=== PATIENT | female | born 1950 | race Caucasian/White ===

== ENCOUNTER 2020-08-16 13:03 | Outpatient (CLI) | payer MEDICARE, BC, SELFPAY ==
--- NOTE | 2020-08-16 13:13 | CT_ITS ---
WS: [id number] HISTORY: Follow-up carcinoma of the lung. EXAMINATION: CT scan of the chest, abdomen, and pelvis with intravenous contrast. Multiple axial imag es were obtained with intravenous contrast. Coronal and sagittal reconstructions were obtained. 75 mL of Omnipaque 300 was used for the examination. Comparison examination: 08/20/2019. CHEST: The examination is unchanged compared to the previous study of 08/20/2019. There is been previous left upper lobectomy. Multiple small pulmonary nodules unchanged. No recurrent mass, no adenopathy, no infiltrates. No pleural fluid ABDOMEN: The examination is unchanged compared to the previous study of 08/20/2019. There is mild fatty infilt ration of the liver with small hypodensities unchanged. Pancreas is mildly atrophic. Spleen is unrema rkable. Presumed small left renal cysts. Small right renal calculus. No change. Small umbilical hernia containing fat. No mass or adenopathy. No free fluid or focal fluid collection. PELVIS: Examination is unchanged compared to the previous study of 08/20/2019. Urinary bladder is unremarkable. Atrophic uterus. No mass, adenopathy, or fluid. CT/CT chest abd pel w con* IMPRESSION: The chest abdomen and pelvis are unchanged compared to the previous study of . No findings of recurrent or metastatic neoplasm.
[2020-08-16 14:07] LABS: Basophils % 0.5 %; Eosinophils # 0.1 10^3/uL (0.0-0.8); Eosinophils % 1.1 %; Hematocrit 43.9 % (37.0-47.0); Hemoglobin 14.4 g/dL (11.5-15.3); Lymphocytes # 1.7 10^3/uL (0.8-4.8); Lymphocytes % 26.9 %; Mean Corpuscular HGB Conc 32.8 g/dL (30.0-36.0); Mean Corpuscular Hemoglobin 30.6 pg (28.0-34.0); Mean Corpuscular Volume 93.4 fL (81-99); Mean Platelet Volume 8.9 fL (7.4-10.4); Monocytes # 0.5 10^3/uL (0.2-0.9); Monocytes % 7.6 %; Neutrophils # 4.04 10^3/uL (1.8-7.7); Neutrophils % 63.6 %; Nucleated Red Blood Cells % 0 %; Platelet Count 253 10^3/cmm (130-400); Red Cell Distribution Width 13.2 % (12.1-15.1); White Blood Count 6.4 10^3/uL (4.0-10.0)
[2020-08-16 14:31] LABS: Alanine Aminotransferase 34 U/L (0-33); Albumin Level 4.3 g/dL (3.5-5.2); Alkaline Phosphatase 80 IU/L (35-105); Anion Gap 13.1 (5-19); Aspartate Amino Transferase 25 U/L (0-32); Blood Urea Nitrogen 13 mg/dL (8-23); Calcium 9.4 mg/dL (8.5-10.5); Carbon Dioxide 31 mmol/L (22-29); Chloride 103 mmol/L (98-107); Globulin 3.2 g/dL (1.3-4.6); Glucose 88 mg/dL (65-115); Osmolality Calculated 296 mOsm/kg (285-295); Potassium 4.1 mmol/L (3.5-5.1); Sodium 143 mmol/L (136-145); Total Bilirubin 0.4 mg/dL (0.15-1.2); Total Protein 7.5 g/dL (6.6-8.7)
[2020-08-16] MEDS: iohexol 300 mg/mL 100 mL Btl IV (15:13)
[2020-08-20 16:09] LABS: Chromogranin A 54 ng/mL (25-140)
[2020-08-21 19:23] LABS: 24 Hour Urine Volume 1925 mL; 5-HIAA, 24 Hour Urine 4.6 mg/24 h (<=6.0)
[2020-08-21 20:23] LABS: Serotonin Whole Blood 51 ng/mL (56-244)
== END 2020-08-16 13:04 | disposition home or self-care (01) ==
LOC: RAD 13:08 → ONCMED 13:14
PROVIDERS: PCP Family Medicine; Visit Provider Internal Medicine Medical Oncology
DX: C7A.090 Malignant carcinoid tumor of the bronchus and lung (principal)
CPT/HCPCS: 36415; 71260; 74177; 80053; 83497; 84260; 85025; 86316; Q9967

== ENCOUNTER 2020-08-23 05:56 | Outpatient (CLI) | payer MEDICARE, BC, SELFPAY ==
--- NOTE | 2020-08-27 13:58 | ONC FU_ITS ---
Dr. Rollins Patient Follow-Up Note Patient: Sammi Harrell Unit #: [id number]: [id number] Dicatated By: Mark Rollins M.D.Date of Visit:Aug 23, 2020 Onc Med Follow-up/Prog Note Chief Complaint: Malignant carcinoid. History of Present Illness: This is a 69 year-old woman malignant carcinoid involving the left lung, stage IIA (T1b, N1, M0). She had presented with new onset of cough. A chest CT on 09/30/2014 showed a concerning left upper lobe lesion. Further evaluation with PET/CT on 10/09/2015 revealed a 2.3 cm left upper lobe mass in the evelio-hilar region with SUV of 4.8, without regional lymphadenopathy. Bronchoscopy on 10/15/2015 was non-diagnostic. On 11/03/15 she underwent a formal left upper lobectomy by Dr. Short. Her surgical pathology revealed a 2.5 cm centimeter atypical carcinoid with spindle cell type. Ki-67 index was with low proliferative rate. One hilar lymph node was involved by direct extension from the main tumor mass. An additional 9 lymph nodes were reported to be benign. Thus, her disease was pathologic stage IIA (T1b, N1, M0). She was seen by Dr. López on 11/24/2015. Expectant management was recommended. Her other medical illnesses include irritable bowel syndrome, nephrolithiasis, fibromyalgia, and chronic anxiety. She has a history of colonic polyps. She is a nonsmoker. INTERIM HISTORY: Surveillance chest CT scan performed on 05/26/2016 showed a new left anterolateral lower lobe 6-7 mm non calcified nodule, felt to be non specific. There was stable appearance of a right lower lobe subpleural nodule. There was new left and similar right lower lung zone scarring or subsegmental atelectasis. A repeat CT scan performed on 08/25/2016 showed no recurrent mass or adenopathy. There were multiple bilateral subcentimeter pulmonary/ subpleural nodules which had been present since 09/30/2015 and changed minimally in size, probably due to volume averaging. These nodules were all negative on PET/CT from 10/09/2015. With those findings she continued on observation/expectant management. Her subsequent surveillance CT scans in 2016, 2017, and 2018 showed no evidence of disease progression. Her surveillance CT scans of the chest, abdomen, and pelvis on 08/16/2020 showed no findings of recurrent or metastatic neoplasm. There were no changes compared to the August 2019 study. However, previous screening mammogram was abnormal, and her diagnostic mammogram on 08/13/2020 showed an irregular focal asymmetry in the upper inner quadrant of the right breast measuring 1.3 cm. Ultrasound showed an irregular hypoechoic mass with indistinct margins at the 1:00 axis of the right breast measuring 0.5 x 0.4 x 0.4 cm. The findings were BI-RADS 4, suspicious. She underwent ultrasound directed biopsy last week, and those results are pending. She is seen for a scheduled visit. She has been feeling okay. She does complain that she is tired, but that she attributes to her weight. She still has normal activity. ECOG score is 0. She has good appetite. She does not have fever, night sweats, or hot flashes/flushing episodes. She has some shortness of breath with more strenuous activity. She has a little bit of cough, attributable to acid reflux. She occasionally has a little chest pain. She is taking Protonix for acid reflux. She has loose stools, which is chronic. She has no complaints. She has been having pain in her left hip. She otherwise has just normal aches and pains. She does not complain of headache or dizziness, and she has no focal neurologic symptoms. Medications: Albuterol Sulfate 1 ((2.5 mg/3ml) 0.083%) Nebulization solution Inhalation four times a day PRN, ALPRAZolam 0.25 mg (of 0.5 mg) Tablet Oral PRN, Hydrocodone-Acetaminophen 1 Tablet (of 5-325 mg) Oral q 6 hours PRN, Imodium A-D Capsule Oral PRN, Lomotil Tablet Oral PRN, Pantoprazole Sodium 1 (40 mg) Tablet, enteric coated Oral daily, TraZODone HCl 100 mg (of 50 mg) Tablet Oral daily Allergies: clindamycin and macrobid. Review of Systems: Constitutional - She has been feeling okay. She does complain of being tired, but that she attributes to weight. She has normal activity. Appetite is good. She has no fever, night sweats, or hot flashes/flushing spells. ECOG score is 0, ENMT - She has some sinus congestion/drainage. No mouth sores. No sore throat or difficulty swallowing, Hematologic/Lymphatic - No abnormal bruising or bleeding, Breasts - She has been undergoing evaluation for abnormal mammogram she has had a recent biopsy of the right breast, Respiratory - She has shortness of breath with more strenuous activity. She has a little cough, suspected to be due to acid reflux. No pleuritic pain or hemoptysis, Cardiovascular - No angina pain. No palpitations, Gastrointestinal - No nausea or vomiting. She does take Protonix for acid reflux. She has loose stools, but that is chronic. No blood in the stool or black stools, Genitourinary (F) - No dysuria or hematuria. No urinary frequency. No urgency or incontinence, Musculoskeletal - She has been having pain in her left hip. She otherwise just has normal aches and pains, Integumentary - No skin rash, Neurologic - No headache or dizziness. No numbness or tingling. No other focal neurologic symptoms, Psychiatric - No anxiety or depression. She has difficulty sleeping. Vital Signs: Performed on Aug 23, 2020 10:52 Height - 69.00 in Weight - 291.8 lbs (LOW) BSA - 2.43 sq.m BMI - 43.09 (HIGH) Temperature - 98.8 F Pulse - 64 /min Respiration - 18 /min BP - 149/72 mm(hg) (HIGH) O2 Sat - 97 % Pain - 0 Physical Examination: Constitutional - She looks good generally, Eyes - Sclerae nonicteric. Conjunctivae clear, ENMT - No lesions noted in the oral cavity, Hematologic/Lymphatic - No cervical, clavicular, or axillary adenopathy, Respiratory - Lungs are clear with some decrease in air movement bilaterally, Cardiovascular - Heart rhythm is regular. There is no murmur, gallop, or rub noted, Abdomen - Distended. Liver and spleen are not enlarged. There is no abdominal mass or ascites noted and there is no inguinal adenopathy, Extremities - There are venous stasis changes, worse on the right, and there is mild edema, Neurologic - No focal neurologic deficits noted. Lab/Imaging: Test performed on Aug 16, 2020 13:58 Serotonin, Serum 51 ng/mL Sodium 143 mmol/L Potassium 4.1 mmol/L Chloride 103 mmol/L CO2 31 mmol/L Anion Gap 13.1 BUN 13 mg/dL Creatinine 0.8 mg/dL Cr Clearance (Est) 134.8700 mL/min Glucose 88 mg/dL Osmolality - Calculated 296 mOsm/kg Calcium 9.4 mg/dL Protein, Total 7.5 g/dL Albumin 4.3 g/dL Globulin 3.2 g/dL Bilirubin, Total 0.4 mg/dL ALT (SGPT) 34 U/L AST (SGOT) 25 U/L Alkaline Phosphatase 80 IU/L WBC 6.4 10 3/uL RBC 4.70 10 6/uL HGB 14.4 g/dL HCT 43.9 % MCV 93.4 fL MCH 30.6 pg MCHC 32.8 g/dL RDW 13.2 % Platelet Count 253 10 3/cmm MPV 8.9 fL Neutrophils 4.04 10 3/uL Lymphocytes 1.7 10 3/uL Monocytes 0.5 10 3/uL Eosinophils 0.1 10 3/uL Basophils 0.0 10 3/uL Neutrophil % 63.6 % Lymphocyte % 26.9 % Monocyte % 7.6 % Eosinophil % 1.1 % Basophils % 0.5 % NRBC % 0 % Chromogranin A 54 ng/mL Test performed on Aug 16, 2020 07:00 U Total Volume 1925 mL U 5-HIAA, 24hr 4.6 mg/24 h Impression: 1. 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 2. She underwent left upper lobectomy on 11/03/2015. She is being followed on observation/expectant management. Her other medical illnesses include: 3. Irritable bowel syndrome. 4. Nephrolithiasis. 5. Fibromyalgia. 6. Chronic anxiety. She had multiple subcentimeter pulmonary nodules by CT scan, but the appearance was nonspecific. Thus far during followup the nodules have remained stable surveillance CT scans, and overall there has been no evidence of recurrence/progression of her malignant carcinoid. Her overall clinical status also has remained stable, but she currently is undergoing evaluation for abnormal mammogram of the right breast. Plan: for the malignant carcinoid. She will have further evaluation for the abnormal mammogram as indicated. I will see her again in 1 year, or sooner as needed. Signed By: aMrk Rollins M.D. <<Signature on File>>
== END 2020-08-23 05:57 | disposition home or self-care (01) ==
LOC: ONCMED 05:59
PROVIDERS: PCP Family Medicine; Visit Provider Internal Medicine Medical Oncology
DX: Z08 Encounter for follow-up examination after completed treatment for malignant neoplasm (principal); Z85.110 Personal history of malignant carcinoid tumor of bronchus and lung; Z90.2 Acquired absence of lung [part of]; K58.9 Irritable bowel syndrome, unspecified; N20.0 Calculus of kidney; M79.7 Fibromyalgia; F41.9 Anxiety disorder, unspecified
CPT/HCPCS: G0463

== ENCOUNTER 2020-10-01 09:55 | Outpatient (CLI) | payer MEDICARE, BC, SELFPAY ==
--- NOTE | 2020-10-05 08:08 | ONC CON_ITS ---
Dr. Rollins New Patient Note Patient: Sammi Harrell Unit #: [id number]: [id number] Dicatated By: Mark Rollins M.D.Date of Visit: Oct 01, 2020 Onc MED New Patient/Consult Referring Physician: Dr. NITESH SHORT M.D. Chief Complaint: Malignant carcinoid. History of Present Illness: This is a 70 year-old woman malignant carcinoid involving the left lung, stage IIA (T1b, N1, M0). She had presented with new onset of cough. A chest CT on 09/30/2014 showed a concerning left upper lobe lesion. Further evaluation with PET/CT on 10/09/2015 revealed a 2.3 cm left upper lobe mass in the evelio-hilar region with SUV of 4.8, without regional lymphadenopathy. Bronchoscopy on 10/15/2015 was non-diagnostic. On 11/03/15 she underwent a formal left upper lobectomy by Dr. Short. Her surgical pathology revealed a 2.5 cm centimeter atypical carcinoid with spindle cell type. Ki-67 index was with low proliferative rate. One hilar lymph node was involved by direct extension from the main tumor mass. An additional 9 lymph nodes were reported to be benign. Thus, her disease was pathologic stage IIA (T1b, N1, M0). She was seen by Dr. López on 11/24/2015. Expectant management was recommended. Surveillance chest CT scan performed on 05/26/2016 showed a new left anterolateral lower lobe 6-7 mm non calcified nodule, felt to be non specific. There was stable appearance of a right lower lobe subpleural nodule. There was new left and similar right lower lung zone scarring or subsegmental atelectasis. A repeat CT scan performed on 08/25/2016 showed no recurrent mass or adenopathy. There were multiple bilateral subcentimeter pulmonary/ subpleural nodules which had been present since 09/30/2015 and changed minimally in size, probably due to volume averaging. These nodules were all negative on PET/CT from 10/09/2015. With those findings she continued on observation/expectant management. Her subsequent surveillance CT scans in 2017, 2018, and 2018 showed no evidence of disease progression. Her surveillance CT scans of the chest, abdomen, and pelvis on 08/16/2020 showed no findings of recurrent or metastatic neoplasm. There were no changes compared to the August 2019 study. Her other medical illnesses include irritable bowel syndrome, nephrolithiasis, fibromyalgia, and chronic anxiety. She has a history of colonic polyps. She is a nonsmoker. INTERIM HISTORY: Her diagnostic mammogram on 08/13/2020 showed an irregular focal asymmetry in the upper inner quadrant of the right breast measuring 1.3 cm. Ultrasound showed an irregular hypoechoic mass with indistinct margins at the 1:00 axis of the right breast measuring 0.5 x 0.4 x 0.4 cm. The findings were BI-RADS 4, suspicious. She underwent ultrasound directed biopsy on 08/13/2020. Pathology showed grade 2 invasive ductal carcinoma. There was associated high-grade ductal carcinoma in situ. The breast prognostic profile showed ER positive at 99% and AL positive at 39%. Tumor was negative for overexpression of HER-2/emelina, 1+ by IHC. On 09/09/2020 she underwent right breast lumpectomy with axillary sentinel lymph node biopsy. Pathology on the lumpectomy showed grade 3 invasive ductal carcinoma measuring 1.6 cm in greatest dimension. The margins were free of tumor, with the closest being the deep margin at 2 mm. There was no involvement in 1 sentinel lymph node. Her Oncotype DX showed recurrence score of 34, corresponding to 22% risk of distant recurrence at 9 years with adjuvant hormonal therapy. The predicted benefit with addition of adjuvant chemotherapy was > 15%. A repeat Oncotype DX was requested, and that result is pending. She is seen today to review the pathology results and to discuss further management of the breast cancer. Past Medical History: Her medical history consists of anxiety, fibromyalgia, history of colonic polyps, irritable bowel syndrome, and nephrolithiasis. Past Surgical History: Her other surgical/procedural history consists of bilateral cataract excisions in 2017, left upper lobectomy in 2015, knee replacement in 2013, knee replacement in 2012, and cholecystectomy in 1991. Medications: Albuterol Sulfate 1 ((2.5 mg/3ml) 0.083%) Nebulization solution Inhalation four times a day PRN, ALPRAZolam 0.25 mg (of 0.5 mg) Tablet Oral PRN, Hydrocodone-Acetaminophen 1 Tablet (of 5-325 mg) Oral q 6 hours PRN, Imodium A-D Capsule Oral PRN, Lomotil Tablet Oral PRN, Pantoprazole Sodium 1 (40 mg) Tablet, enteric coated Oral daily, TraZODone HCl 100 mg (of 50 mg) Tablet Oral daily Allergies: clindamycin and macrobid. Social History: Ms. Harrell is . She is a non-smoker. She does not drink alcohol. Family History: Her father had colon cancer and she thinks her paternal grandfather may also have had colon cancer. Two cousins on her father side had colon cancer and an aunt on her father's side had breast cancer. A brother of lung cancer at age 49. Vital Signs: Performed on Oct 01, 2020 10:20: 3, 43.73 (HIGH), 2.44 sq.m, 69.00 in, 96 %, 61 /min, 16 /min, 133/62 mm(hg), 98.4 F, 296.1 lbs (HIGH), and Performed on Nov 24, 2015 11:12: 0. Problem List: 1. Grade 3 infiltrating ductal carcinoma of the right breast, stage IA (pT1c, pN0, M0), ER/AL positive and HER-2 negative. Her tumor was high risk by Oncotype DX. 2. 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 She underwent left upper lobectomy on 11/03/2015. 3. Irritable bowel syndrome. 4. Nephrolithiasis. 5. Fibromyalgia. 6. Chronic anxiety. Problems Addressed with this Encounter and Plan: 1. Grade 3 infiltrating ductal carcinoma of the right breast, stage IA (pT1c, pN0, M0), ER/AL positive and HER-2 negative. Her tumor was high risk by Oncotype DX with recurrence score 34 corresponding to a 22% 9-year risk of distant recurrence with hormonal therapy alone. The predicted benefit with addition of adjuvant chemotherapy was > 15%. She underwent ultrasound directed biopsy of the right breast on 08/13/2020 followed by right breast lumpectomy with axillary sentinel lymph node biopsy on 09/09/2020. The pathology results were reviewed with the patient, including the results of the Oncotype DX. We discussed the clinical implications. She has a stage Ia infiltrating ductal carcinoma of the right breast which is ER/AL positive and HER-2/emelina negative. The Oncotype DX, though, came back at high risk, and I reviewed the results of that study with her in detail. The estimated 9-year risk of recurrence with adjuvant hormonal therapy alone is 22% but with a predicted benefit of > 15% with addition of adjuvant chemotherapy. As such, she is recommended to undergo adjuvant chemotherapy with 4 cycles of cyclophosphamide/docetaxel. I reviewed potential side effects with the chemotherapy which may include nausea/vomiting, mucositis, diarrhea, alopecia, fatigue, low blood counts, and peripheral neuropathy, among others. She is aware that she will need to undergo placement of Port-A-Cath for venous access for the chemotherapy. At this point she indicates that she is agreeable to taking the chemotherapy as recommended, though a repeat Oncotype DX has been requested and we will want to verify those results before arranging the Port-A-Cath placement. In the meantime, she also is aware that following completion of adjuvant chemotherapy she will need to undergo radiation to the right breast and she will then begin adjuvant hormonal therapy with an aromatase inhibitor. I also reviewed those expected side effects, which include risk of osteoporosis and a potential for musculoskeletal pain. The recommended duration of treatment is 5 years. 2. 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 She underwent left upper lobectomy on 11/03/2015. She has been followed on observation/expectant management. Thus far there has been no evidence of recurrence. 3. She has a history of colonic polyps and a significant family history for both colon cancer and breast cancer. I will have to determine if she is eligible for genetic testing for hereditary cancer. Total time spent on the day of encounter was 45 minutes, including review of records, discussion with patient, and documentation. Signed By: Mark Rollins M.D. <<Signature on File>>
== END 2020-10-01 09:56 | disposition home or self-care (01) ==
PROVIDERS: PCP Family Medicine; Visit Provider Internal Medicine Medical Oncology
DX: C50.211 Malignant neoplasm of upper-inner quadrant of right female breast (principal); Z17.0 Estrogen receptor positive status [ER+]; Z85.110 Personal history of malignant carcinoid tumor of bronchus and lung; Z90.2 Acquired absence of lung [part of]; Z80.3 Family history of malignant neoplasm of breast; Z80.0 Family history of malignant neoplasm of digestive organs; K58.9 Irritable bowel syndrome, unspecified; M79.7 Fibromyalgia; F41.9 Anxiety disorder, unspecified; N20.0 Calculus of kidney
CPT/HCPCS: 99215

== ENCOUNTER → 2020-10-13 15:57 | Outpatient (BNVA) | payer MEDICARE, BC, SELFPAY | PROVIDERS: PCP Family Medicine; Visit Provider Surgery | DX: C34.10 Malignant neoplasm of upper lobe, unspecified bronchus or lung (principal) | CPT/HCPCS: 87635 ==

== ENCOUNTER 2020-10-18 08:17 | Day surgery (SDC) | payer MEDICARE, BC, SELFPAY ==
[2020-10-15 13:55] VITALS: BMI 42.5
--- NOTE | 2020-10-18 | SCC_ITS ---
Procedure Done: Attempted placement of PowerPort under ultrasound and fluoroscopic guidance were interpretation was done by me through the whole entire procedure 24.8 seconds of fluoroscopic guidance, for a cumulative dose of 4.94 mGy, was provided to Dr. Tong by the radiology department. C-arm images of the chest were saved for the patient's permanent record. [facility]
--- NOTE | 2020-10-18 08:30 | SC_ITS ---
WS: [id number] INTRAOPERATIVE TECHNIQUE: 2 Spot fluoroscopic images for intraoperative purposes. FLUOROSCOPY TIME: 24.8 seconds CLINICAL INFORMATION: Powerport Placement COMPARISON: None. FINDINGS: Tubing projected over the right hemithorax. No visualized pneumothorax. SC/C-arm FL for CVA [id number] IMPRESSION: Images obtained for intraoperative purposes.
[2020-10-18 08:41] VITALS: BP 163/94; PULSE 83; RESP 18; TEMP 36.3; O2SAT 93
[2020-10-18] MEDS: sodium chloride 0.9% 1,000 ML 30 ML IV (08:57)
--- NOTE | 2020-10-18 09:40 | ANES.PREANE2 ---
Pre-Anesthetic Assessment Pre-Anesthetic Assessment: Height/Weight: Height 1.75 m Weight 130.635 kg Temp Pulse Resp BP Pulse Ox 97.3 F L 83 18 163/94 93 10/18/20 08:41 10/18/20 08:41 10/18/20 08:41 10/18/20 08:41 10/18/20 08:41 Preop Diagnosis: Breast cancer Proposed Procedure: Operation Date: 10/18/20 10:00 Proposed Procedures p Portacath Placement 37480(Not Applicable) - Stephan Tong MD Was Beta Neil taken within 24 hours: N/A Last intake: Intake Last Liquid Date 10/17/20 Last Liquid Time 21:00 Last Solid Date 10/17/20 Last Solid Time 21:00 Social: Social History: No alcohol and No tobacco Exam: Pre-Anes Outpt Exam: alert, oriented x 3, clear to auscultation bilaterally and regular rate & rhythm Airway: Submandibular: WNL Cervical ROM: WNL MP: 2 Dentition: Full Pulmonary: Pulmonary: Asthma GI: GI: GERD Metabolic: Metabolic: Morbid obesity Neuropsych: Neuropsych: Anxiety Anesthetic Plan: ASA status: 3 Anesthesia: MAC Risk of > 500 ml blood loss (7ml/kg in children): No Meds/Allergies Current Medications: Current Medications Generic Name Dose Route Start Last Admin Trade Name Freq PRN Reason Stop Dose Admin Sodium Chloride 1,000 mls @ 30 ml s/hr 10/18/20 08:30 10/18/20 08:57 Sodium Chloride 0.9% IV 10/19/20 08:29 30 mls/hr .Q24H DENA Administration PFSH Anesthesia PFSH: Medical History Cancer of upper lobe of left lung Depression Fibromyalgia Hammertoe, bilateral Heloma molle Hypertension IBS (irritable bowel syndrome) Tailor's bunion of both feet Venous insufficiency Surgical History History of cholecystectomy History of knee replacement History of tonsillectomy and adenoidectomy Social History Smoking and tobacco status: never smoked Alcohol intake: never Data Anesthesia Cardiac Studies: No Data to Display
--- NOTE | 2020-10-18 10:06 | W.PM.OPSUD ---
Surgery/Procedure H&P Update DATE OF PROCEDURE: October 18, 2020 DATE H&P PERFORMED: 10/13/20 H&P UPDATE INFORMATION: I have reviewed H&P completed within last 30 days, I have examined patient prior to procedure and No changes to prior documentation PREOP DIAGNOSIS: Breast cancer PRIMARY INDICATION FOR PROCEDURE: The same PLANNED PROCEDURE: Operation Date: 10/18/20 10:00 Proposed Procedures p Portacath Placement 18969(Not Applicable) - Stephan Tong MD
[2020-10-18] MEDS: lidocaine 2% INJ 20 mL INJECTION (11:00)
--- NOTE | 2020-10-18 11:46 | XRR_ITS ---
PROCEDURE INFORMATION: Exam: XR Chest, 1 View Exam date and time: 10/18/2020 12:04 PM Age: 70 years old Clinical indication: Device placement; Other: Attempted placement of port-a-cath; Additional info: Status post attempted placement of port-a-cath TECHNIQUE: Imaging protocol: XR of the chest Views: 1 view. COMPARISON: CT chest abd pel w con* 08/16/2020 3:01 PM FINDINGS: Lungs: No pneumonia or pulmonary edema. Thickening of the minor fissure versus perifissural atelectasis. Pleural spaces: Left pleural thickening versus extrapleural fat deposition. No pneumothorax. No large pleural effusion. The left costophrenic sulcus is not on the images. Heart/Mediastinum: The heart is not felt to be enlarged when allowing for epicardial fat pads. Vasculature: The thoracic aorta is tortuous. Bones/joints: There are multilevel bridging osteophytes in the spine. Soft tissues: Surgical clips project over the left hemithorax, and in the right breast/chest wall. XR/XR chest 1V portable [id number] IMPRESSION: No pneumothorax after attempted port placement.
[2020-10-18 11:53] VITALS: BP 101/60; PULSE 67; RESP 18; TEMP 36.1; O2SAT 94
--- NOTE | 2020-10-18 11:54 | PM.OP ---
Operative Report Date of procedure: October 18, 2020 Pre-op Diagnosis: Breast cancer Post-op diagnosis: same Post-op Findings: Unsuccessful access to the left subclavian and right subclavian veins Unsuccessful passage of guidewires via internal jugular veins Procedure Done: Attempted placement of PowerPort under ultrasound and fluoroscopic guidance were interpretation was done by me through the whole entire procedure Implants: None Surgeon: Stephan Tong Neuropsychology Service Director: Surgical maira Gutierrez Circulating nurses Juana and Calli Anesthesia: MAC (cRNAs Telma and Consuelo) Estimated blood loss (mL): 20 Condition: stable Disposition: same day Brief History: This is a pleasant 70 years old female patient with well-known history of partial mastectomy on the right side with sentinel lymph node biopsy of the right axilla, and previous history of left upper lobectomy of the lung, referred to my practice to establish a PowerPort placement for chemotherapy for her breast cancer. Plan of care; After thorough history physical examination and reviewing the chart and reviweing the images iwth my personal intrepretation.I counseled the patient for Port-A-Cath placement, indications, risks including pneumothorax that may require Chest tube(s) placement and potential injury of major vascular structures that may require Thoractomy, benefits,indications and alternatives were all discussed with the patient, patient understands and is interested to proceed. Rationale was carefully and clearly discussed with the patient.Appropriate informed consent have been reviewed and signed. Procedure: Patient was identified in the holding area and taken to the operative room and placed in supine position IV propofol was given by the anesthesia provider ,both arms were tucked,Time-out was done verifying the patient's name/date of /planned procedure and destination after the procedure, all were in agreement. SCDs confirmed to be functioning, preoperative antibiotics administered per protocol, and beta francesco protocol was confirmed, appropriate positioning of the patient was done by me. Patient was well secured to the bed. Medications were reviewed to assess for anticoagulant usage. Risks and benefits and prevention of central line associated blood stream infection (CLABSI) were discussed with the patient/CPOA, and a consent was obtained. Monitors were in place and monitored throughout the procedure. All necessary supplies were available prior to start. Hand hygiene was completed prior to starting. Maximum barrier technique was utilized including a sterile gown, sterile gloves with a hat and mask. Site was was prepped with [chlorhexidine] and a full body drape was placed. 5 mL of 2% lidocaine was injected into the skin with a 25 gauge needle. Prep& drape was done under the usual sterile technique, lidocaine 2% was injected at the site of the stick, started first by the left subclavian vein multiple attempts without obvious success of retrieving of any venous blood, attention was deviated towards the left internal jugular vein under ultrasound guidance there was no evidence of intraluminal thrombosis and venous blood was retrieved but unfortunately the guidewire would not pass except towards the left subclavian vein, this part of the procedure was done under fluoroscopy and multiple manipulation of the guidewire and different positioning of the patient was attempted without obvious success. Attention was then deviated towards the right internal jugular vein under ultrasound guidance same technique was used and again the wire would not pass and kept uncoiling towards the junction between the right internal jugular and right subclavian vein. I decided to deviate my attention towards the right subclavian vein were arterial blood was withdrawn and at this point I aborted after trying again to access the subclavian vein without obvious success. I decided that this point to abort the whole procedure and will plan to have the PICC line for the patient after getting a chest x-ray in PACU to make sure there is no pneumothorax. Patient tolerated the attempted placement of the PowerPort procedure well was taken to the recovery area in stable condition Count was correct at the end of the procedure I was present for the whole entire procedure Chest x-ray after the procedure was done shows no pneumothorax
[2020-10-18] MEDS: heparin, porcine 1,000 unit/mL INJ 10 mL 9000 UNIT XX (12:05)
[2020-10-18 12:11] VITALS: BP 120/77; PULSE 62; RESP 18; O2SAT 93
--- NOTE | 2020-10-18 12:17 | PC.NURSE ---
PROCEDURE WAS NOT SUCCESSFUL. PHYSICIAN ORDERED A PICC LINE TO BE PLACED. PHYSICIAN DISCUSSED THIS WITH PATIENT AND SPOUSE WAS NOTIFIED
--- NOTE | 2020-10-18 12:54 | XR_ITS ---
WS: [id number] PORTABLE CHEST HISTORY: PICC PLACEMENT COMPARISON: 10/18/2020. Left-sided PICC line with tip in the proximal SVC. Lung volumes are decreased due to supine position. No pleural effusion or pneumothorax. Cardiac size: Mildly enlarged cardiac silhouette. Mediastinum/Aorta: Normal mediastinum. No osseous abnormality seen. XR/XR chest 1V portable [id number] IMPRESSION: LEFT PICC line terminates in the proximal SVC.
--- NOTE | 2020-10-18 13:40 | XR_ITS ---
WS: [id number] PORTABLE CHEST HISTORY: PICC LINE PLACEMENT COMPARISON: Earlier the same day. Left-sided PICC line has been advanced and the tip is now in the distal SVC. No additional changes. C ontinued cardiomegaly. XR/XR chest 1V portable [id number] IMPRESSION: Advancement of the PICC line now tip terminates in the distal SVC.
== END 2020-10-18 14:26 | disposition home or self-care (01) ==
PROVIDERS: PCP Family Medicine; Visit Provider Surgery
PROC: (CPT 36561; principal; 2020-10-18 10:00)
DX: C50.919 Malignant neoplasm of unspecified site of unspecified female breast (principal); F32.9 Major depressive disorder, single episode, unspecified; M79.7 Fibromyalgia; I10 Essential (primary) hypertension; J45.909 Unspecified asthma, uncomplicated; K21.9 Gastro-esophageal reflux disease without esophagitis; E66.01 Morbid (severe) obesity due to excess calories; Z68.41 Body mass index [BMI] 40.0-44.9, adult
CPT/HCPCS: 36561; 12345; 36569; 71045; 76000; 77001; 96365; J0690; J1644; J2250; J2405; J2704; J3010; J7030

== ENCOUNTER 2020-11-03 08:55 | Outpatient (CLI) | payer MEDICARE, BC, SELFPAY ==
[2020-11-03 09:49] LABS: Basophils % 0.1 %; Hematocrit 40.8 % (37.0-47.0); Hemoglobin 13.4 g/dL (11.5-15.3); Lymphocytes # 1.4 10^3/uL (0.8-4.8); Lymphocytes % 9.8 %; Mean Corpuscular HGB Conc 32.8 g/dL (30.0-36.0); Mean Corpuscular Volume 94.4 fL (81-99); Mean Platelet Volume 8.9 fL (7.4-10.4); Monocytes # 1.5 10^3/uL (0.2-0.9); Neutrophils # 11.53 10^3/uL (1.8-7.7); Neutrophils % 79.3 %; Nucleated Red Blood Cells % 0 %; Platelet Count 264 10^3/cmm (130-400); Red Blood Count 4.32 10^6/uL (4.1-5.3); Red Cell Distribution Width 12.6 % (12.1-15.1); White Blood Count 14.6 10^3/uL (4.0-10.0)
[2020-11-03 10:09] LABS: Alanine Aminotransferase 22 U/L (0-33); Albumin Level 4.1 g/dL (3.5-5.2); Alkaline Phosphatase 92 IU/L (35-105); Anion Gap 12.9 (5-19); Aspartate Amino Transferase 16 U/L (0-32); Blood Urea Nitrogen 14 mg/dL (8-23); Calcium 9.4 mg/dL (8.5-10.5); Carbon Dioxide 27 mmol/L (22-29); Chloride 104 mmol/L (98-107); Globulin 3.2 g/dL (1.3-4.6); Glucose 111 mg/dL (65-115); Osmolality Calculated 291 mOsm/kg (285-295); Potassium 3.9 mmol/L (3.5-5.1); Sodium 140 mmol/L (136-145); Total Bilirubin 0.3 mg/dL (0.15-1.2); Total Protein 7.3 g/dL (6.6-8.7)
[2020-11-03] MEDS: sodium chloride 0.9% 250 ML 75 ML IV (11:10)
[2020-11-03] MEDS: famotidine 20 mg/2 mL INJ IVP (11:10)
[2020-11-03] MEDS: palonosetron 0.25 mg/5 mL SDV IV (11:13)
[2020-11-03] MEDS: diphenhydrAMINE 50 mg/mL SDV 1mL 25 MG IV (11:15)
[2020-11-03] MEDS: pegfilgrastim 6 mg/0.6 mL Kit (onpro) SUBCUT (14:00)
== END 2020-11-03 08:56 | disposition home or self-care (01) ==
PROVIDERS: PCP Family Medicine; Visit Provider Internal Medicine Medical Oncology
DX: Z51.11 Encounter for antineoplastic chemotherapy (principal); C50.211 Malignant neoplasm of upper-inner quadrant of right female breast; Z17.0 Estrogen receptor positive status [ER+]; C7A.090 Malignant carcinoid tumor of the bronchus and lung
CPT/HCPCS: 80053; 85025; 96367; 96372; 96375; 96377; 96413; 96417; J1100; J1200; J2469; J2505; J3490; J7040; J7050; J9070; J9171

== ENCOUNTER 2020-11-10 05:49 | Outpatient (CLI) | payer MEDICARE, BC, SELFPAY ==
[2020-11-10 08:36] LABS: Basophils % 0.4 %; Eosinophils % 0.4 %; Hematocrit 39.1 % (37.0-47.0); Hemoglobin 12.7 g/dL (11.5-15.3); Lymphocytes # 1.1 10^3/uL (0.8-4.8); Lymphocytes % 20.1 %; Mean Corpuscular HGB Conc 32.5 g/dL (30.0-36.0); Mean Corpuscular Hemoglobin 30.3 pg (28.0-34.0); Mean Corpuscular Volume 93.3 fL (81-99); Mean Platelet Volume 9.8 fL (7.4-10.4); Monocytes # 1.2 10^3/uL (0.2-0.9); Monocytes % 21.3 %; Neutrophils # 2.34 10^3/uL (1.8-7.7); Neutrophils % 41.1 %; Nucleated Red Blood Cells % 0.5 %; Platelet Count 181 10^3/cmm (130-400); Red Blood Count 4.19 10^6/uL (4.1-5.3); Red Cell Distribution Width 12.2 % (12.1-15.1); White Blood Count 5.7 10^3/uL (4.0-10.0)
[2020-11-10 09:06] LABS: Slide Review Slide Review Perform
--- NOTE | 2020-11-26 21:31 | ONC FU_ITS ---
[facility] Patient Note Patient: Sammi Harrell Unit #: [id number]: [id number] Dictated By: Jagdish SoteloDate of Visit: Nov 10, 2020 Onc MED Follow-Up/Prog Note Chief Complaint: Malignant carcinoid. Right Breast Cancer History of Present Illness: Mrs Harrell is a 70 year-old woman malignant carcinoid involving the left lung, stage IIA (T1b, N1, M0). She had presented with new onset of cough. A chest CT on 09/30/2014 showed a concerning left upper lobe lesion. Further evaluation with PET/CT on 10/09/2015 revealed a 2.3 cm left upper lobe mass in the evelio-hilar region with SUV of 4.8, without regional lymphadenopathy. Bronchoscopy on 10/15/2015 was non-diagnostic. On 11/03/15 she underwent a formal left upper lobectomy by Dr. Short. Her surgical pathology revealed a 2.5 cm centimeter atypical carcinoid with spindle cell type. Ki-67 index was with low proliferative rate. One hilar lymph node was involved by direct extension from the main tumor mass. An additional 9 lymph nodes were reported to be benign. Thus, her disease was pathologic stage IIA (T1b, N1, M0). She was seen by Dr. López on 11/24/2015. Expectant management was recommended. Surveillance chest CT scan performed on 05/26/2016 showed a new left anterolateral lower lobe 6-7 mm non calcified nodule, felt to be non specific. There was stable appearance of a right lower lobe subpleural nodule. There was new left and similar right lower lung zone scarring or subsegmental atelectasis. A repeat CT scan performed on 08/25/2016 showed no recurrent mass or adenopathy. There were multiple bilateral subcentimeter pulmonary/ subpleural nodules which had been present since 09/30/2015 and changed minimally in size, probably due to volume averaging. These nodules were all negative on PET/CT from 10/09/2015. With those findings she continued on observation/expectant management. Her subsequent surveillance CT scans in 2017, 2018, and 2018 showed no evidence of disease progression. Her surveillance CT scans of the chest, abdomen, and pelvis on 08/16/2020 showed no findings of recurrent or metastatic neoplasm. There were no changes compared to the August 2019 study. Her other medical illnesses include irritable bowel syndrome, nephrolithiasis, fibromyalgia, and chronic anxiety. She has a history of colonic polyps. She is a nonsmoker. INTERIM HISTORY: Her diagnostic mammogram on 08/13/2020 showed an irregular focal asymmetry in the upper inner quadrant of the right breast measuring 1.3 cm. Ultrasound showed an irregular hypoechoic mass with indistinct margins at the 1:00 axis of the right breast measuring 0.5 x 0.4 x 0.4 cm. The findings were BI-RADS 4, suspicious. She underwent ultrasound directed biopsy on 08/13/2020. Pathology showed grade 2 invasive ductal carcinoma. There was associated high-grade ductal carcinoma in situ. The breast prognostic profile showed ER positive at 99% and LA positive at 39%. Tumor was negative for overexpression of HER-2/emelina, 1+ by IHC. On 09/09/2020 she underwent right breast lumpectomy with axillary sentinel lymph node biopsy. Pathology on the lumpectomy showed grade 3 invasive ductal carcinoma measuring 1.6 cm in greatest dimension. The margins were free of tumor, with the closest being the deep margin at 2 mm. There was no involvement in 1 sentinel lymph node. Her Oncotype DX showed recurrence score of 34, corresponding to 22% risk of distant recurrence at 9 years with adjuvant hormonal therapy. The predicted benefit with addition of adjuvant chemotherapy was > 15%. A repeat Oncotype DX was requested, and that result is pending. She was seen by Dr Rollins to review the pathology results and to discuss further management of the breast cancer. Mrs Harrell has a stage Ia infiltrating ductal carcinoma of the right breast which is ER/LA positive and HER-2/emelina negative. The Oncotype DX, though, came back at high risk, and Dr Rollins reviewed the results of that study with her in detail. The treatment recommendation for her was to undergo adjuvant chemotherapy with 4 cycles of cyclophosphamide/docetaxel. She was also informed that following completion of adjuvant chemotherapy she will need to undergo radiation to the right breast and she will then begin adjuvant hormonal therapy with an aromatase inhibitor. The recommended duration of treatment is 5 years. Mrs. Harrell began her first cycle of docetaxel Cytoxan on November 03, 2020. She is here today for day. She states feeling better. She states that on Sunday she had some significant constipation but that has been resolved with stool softeners in one [id number]-mddiatx laxative. She also had leg and backslash chest wall pain. She did not take any Claritin for prophylaxis for the Neulasta. She was given Neulasta on pro on November 04, 2020. She does have a PICC line due to an unsuccessful Port-A-Cath placement. That she states has not been giving her any problem. She states overall she is done pretty good. She did have some fatigue on Sunday after her treatment. But that has resolved today. We did discuss that the constipation could be due to premed Aloxi but she states she would rather deal with the constipation then be nauseated. She states her scalp has been itching some and she feels that she is probably getting ready to lose her hair. She denies any other pain. She denies any mouth sores, sore throat difficulty swallowing. She denies any fever or chills. She states her bowels are normal now and she denies any concerns with her bladder. She denies any lower extremity edema. She denies any neuropathy symptoms at present. Her ECOG is 1. Past Medical History: Anxiety Fibromyalgia History of colonic polyps Irritable bowel syndrome Nephrolithiasis Past Surgical History: Bilateral cataract excisions in 2017 Left upper lobectomy in 2016 Knee replacement in 2014 Knee replacement in 2013 Cholecystectomy in 1992 Allergies: clindamycin and macrobid. Medications: Albuterol Sulfate 1 ((2.5 mg/3ml) 0.083%) Nebulization solution Inhalation four times a day PRN ALPRAZolam 0.25 mg (of 0.5 mg) Tablet Oral PRN Hydrocodone-Acetaminophen 1 Tablet (of 5-325 mg) Oral q 6 hours PRN Imodium A-D Capsule Oral PRN Lomotil Tablet Oral PRN Pantoprazole Sodium 1 (40 mg) Tablet, enteric coated Oral daily TraZODone HCl 100 mg (of 50 mg) Tablet Oral daily Family History: Ms. Harrell's mother at age 93. Ms. Harrell's father at age 92. Ms. Harrell has 1 brother who is : lung cancer. Her father had colon cancer and she thinks her paternal grandfather may also have had colon cancer. Two cousins on her father side had colon cancer and an aunt on her father's side had breast cancer. A brother of lung cancer at age 49. 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 Ms. Harrell has never smoked. She has no history of drinking. She is a non-smoker. She does not drink alcohol. Review Of Symptoms: Constitutional Denies fevers, chills, night sweats, excessive fatigue or weight loss. Allergic/Immunologic No reactions. Eyes Denies significant visual changes. No diplopia. No amaurosis. Hematologic/Lymphatic Denies easy bruising or bleeding. The patient denies any tender or palpable lymph nodes. Respiratory Denies dyspnea on exertion, chest pain, cough or hemoptysis. Denies orthopnea. Cardiovascular Denies anginal chest pain, palpitations or orthopnea. Gastrointestinal Denies nausea, vomiting, diarrhea, GI bleeding. Denies change in bowel habits and/or stool color, no heartburn or early satiety. Constipation as above. Genitourinary (F) No hematuria, hesitancy, incontinence, vaginal bleeding, discharge or other problems with urination. Musculoskeletal Denies joint pain, swelling or redness. No decreased range of motion. Integumentary Denies chronic rashes, inflammation, ulcerations or skin changes. Neurologic Denies headache, blurred vision, and no areas of focal weakness or numbness. Normal gait. No sensory problems. Psychiatric Denies insomnia, depression, kary or mood swings. Vital Signs: Performed on Nov 10, 2020 09:30 Height - 69.00 in Weight - 290.6 lbs (LOW) BSA - 2.42 sq.m BMI - 42.91 (HIGH) Temperature - 97.4 F (LOW) Pulse - 92 /min Respiration - 18 /min BP - 165/93 mm(hg) (HIGH) O2 Sat - 92 % (LOW) Pain - 4,1 - No physically strenuous activity, but ambulatory and able to carry out light or sedentary work (e.g. office work, light house work). (ECOG) Physical Examination: Constitutional Alert, oriented, no acute distress. Skin pink, warm and dry. Head Normocephalic; atraumatic. Eyes Conjunctivae and sclerae are clear and without icterus. Pupils are reactive and equal. ENMT No oral exudates, ulcers, masses, thrush or mucositis. Oropharynx clear. Tongue normal. Hematologic/Lymphatic No petechiae or purpura. No tender or palpable lymph nodes in the cervical or supraclavicular areas. Respiratory Lungs are clear to auscultation without rhonchi or wheezing. Cardiovascular Regular rate and rhythm of heart without murmurs,clicks, gallops or rubs. Abdomen Non-tender, non-distended, no masses or ascites. Good bowel sounds noted in all quads. No guarding or rebound tenderness. No pulsatile masses. Back/Spine Non-tender to palpation. Extremities No visible deformities, no cyanosis, clubbing or edema. Musculoskeletal No tenderness or swelling, normal range of motion without obvious weakness. Integumentary No rashes or lesions. Neurologic No sensory or motor deficits, normal cerebellar function, normal gait. Psychiatric Alert and oriented times three. Coherent speech. Verbalizes understanding of our discussions today. Laboratory: see below Test performed on Nov 10, 2020 08:22 CBC Slide Review Slide Review Perform SLIDE REVIEW AGREES WITH AUTOMATED RESULTS ST Impression: 1. Grade 3 infiltrating ductal carcinoma of the right breast, stage IA (pT1c, pN0, M0), ER/LA positive and HER-2 negative. Her tumor was high risk by Oncotype DX. 2. 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 She underwent left upper lobectomy on 11/03/2015. 3. Irritable bowel syndrome. 4. Nephrolithiasis. 5. Fibromyalgia. 6. Chronic anxiety. Plan: 1. Grade 3 infiltrating ductal carcinoma of the right breast, stage IA (pT1c, pN0, M0), ER/LA positive and HER-2 negative. Her tumor was high risk by Oncotype DX with recurrence score 34 corresponding to a 22% 9-year risk of distant recurrence with hormonal therapy alone. The predicted benefit with addition of adjuvant chemotherapy was > 15%. She underwent ultrasound directed biopsy of the right breast on 08/13/2020 followed by right breast lumpectomy with axillary sentinel lymph node biopsy on 09/09/2020. The pathology results and clinical implications were reviewed with the patient, including the results of the Oncotype DX per Dr Rollins. She has a stage Ia infiltrating ductal carcinoma of the right breast which is ER/LA positive and HER-2/emelina negative. The Oncotype DX, though, came back at high risk, and Dr Rollins reviewed the results of that study with her in detail. The estimated 9-year risk of recurrence with adjuvant hormonal therapy alone is 22% but with a predicted benefit of > 15% with addition of adjuvant chemotherapy. As such, she was recommended to undergo adjuvant chemotherapy with 4 cycles of cyclophosphamide/docetaxel. She began her first cycle on 11/03/2020. She also is aware that following completion of adjuvant chemotherapy she will need to undergo radiation to the right breast and she will then begin adjuvant hormonal therapy with an aromatase inhibitor. The recommended duration of treatment is 5 years. A. Proceed with cycle 1 day 8 plan. She is on a 21-day cycle. B. We may need to consider steroid taper with her with cycle 2 given that she had leg pain and washed out on to 3 days after her chemotherapy. She does do steroid premeds with no taper. C. We will want to watch her constipation closely as the Aloxi may be worsening that. However she has a significant history of motion sickness and would be high risk for nausea. She did not have nausea with the cycle thus far. D. Labs from today were reviewed in detail discussed with Mrs. Harrell and a copy was given to her. WBC 5.7, hemoglobin 12.7, platelets 181,000 ANC is 2340. 2. 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 She underwent left upper lobectomy on 11/03/2015. She has been followed on observation/expectant management. Thus far there has been no evidence of recurrence. 3. She has a history of colonic polyps and a significant family history for both colon cancer and breast cancer. She did have BRCA testing through Dr Shipley's office and is currently pending. 4. Constipation???most likely treatment induced particularly Aloxi. A. She currently has a controlled with stool softeners and [id number] laxative as needed. She is also working on my diet a little better as well . B. We did discuss the potential of the Aloxi causing the constipation. She has a strong history of motion sickness and being nauseated easily. She states she would rather be constipated then nauseated. We will monitor her closely with future cycles to see if any adjustments of the Aloxi is required. 5. Venous access device A. She currently has a PICC line as she did have unsuccessful port cath placement. She requires weekly maintenance of her PICC line to include blood draws as well as flushing and dressing changes. 6. Follow-up plan A. Continue with weekly interim counts to include CBC CMP and magnesium she complains of intermittent leg cramps. These mostly bother her when standing. 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 B. Followup in 2 weeks for consideration of cycle 2 Docetaxel/cyclophosphamide. C. She will continue support with Neulasta on pro. Her ANC on day 1 was 11,530 today on day 8 is 2340. She did receive Neulasta on pro with cycle 1. D. Mrs. Harrell has been encouraged to contact us in interim should questions or problems arise. 7. Total time spent in review of patient's plan of care and records prior to the visit as well as reviewing the plan of care and answering questions, reviewing labs with Mrs Oejda and post visit documentation was 59 minutes. Signed By: Jagdish Sotelo-, AOCNP Mark Rollins MD <<Signature on File>>
== END 2020-11-10 05:50 | disposition home or self-care (01) ==
LOC: ONCMED 05:52
PROVIDERS: PCP Family Medicine; Visit Provider Nurse Practitioner
DX: C50.211 Malignant neoplasm of upper-inner quadrant of right female breast (principal); Z17.0 Estrogen receptor positive status [ER+]; M79.606 Pain in leg, unspecified; K59.09 Other constipation; R25.2 Cramp and spasm; Z85.110 Personal history of malignant carcinoid tumor of bronchus and lung; Z90.2 Acquired absence of lung [part of]; Z92.3 Personal history of irradiation; Z92.21 Personal history of antineoplastic chemotherapy; Z79.899 Other long term (current) drug therapy; Z95.828 Presence of other vascular implants and grafts
CPT/HCPCS: 36592; 85025; 99215

== ENCOUNTER 2020-11-17 06:22 | Outpatient (CLI) | payer MEDICARE, BC, SELFPAY ==
[2020-11-17 10:43] LABS: Basophils # 0.1 10^3/uL (0.0-0.1); Basophils % 1.3 %; Eosinophils % 0.1 %; Hematocrit 40.5 % (37.0-47.0); Hemoglobin 12.9 g/dL (11.5-15.3); Lymphocytes # 1.2 10^3/uL (0.8-4.8); Lymphocytes % 15.4 %; Mean Corpuscular HGB Conc 31.9 g/dL (30.0-36.0); Mean Corpuscular Volume 97.4 fL (81-99); Mean Platelet Volume 10.1 fL (7.4-10.4); Monocytes # 0.6 10^3/uL (0.2-0.9); Monocytes % 8.1 %; Neutrophils # 5.74 10^3/uL (1.8-7.7); Neutrophils % 72.6 %; Nucleated Red Blood Cells % 0.3 %; Platelet Count 144 10^3/cmm (130-400); Red Blood Count 4.16 10^6/uL (4.1-5.3); Red Cell Distribution Width 13.1 % (12.1-15.1); White Blood Count 7.9 10^3/uL (4.0-10.0)
[2020-11-17 11:02] LABS: Alanine Aminotransferase 26 U/L (0-33); Albumin Level 3.8 g/dL (3.5-5.2); Alkaline Phosphatase 96 IU/L (35-105); Anion Gap 12.4 (5-19); Aspartate Amino Transferase 22 U/L (0-32); Blood Urea Nitrogen 13 mg/dL (8-23); Calcium 8.7 mg/dL (8.5-10.5); Carbon Dioxide 27 mmol/L (22-29); Chloride 104 mmol/L (98-107); Globulin 2.9 g/dL (1.3-4.6); Glucose 99 mg/dL (65-115); Magnesium 2.1 mg/dL (1.7-2.3); Osmolality Calculated 288 mOsm/kg (285-295); Potassium 4.4 mmol/L (3.5-5.1); Sodium 139 mmol/L (136-145); Total Bilirubin 0.3 mg/dL (0.15-1.2); Total Protein 6.7 g/dL (6.6-8.7)
== END 2020-11-17 06:23 | disposition home or self-care (01) ==
LOC: ONCMED 06:26
PROVIDERS: PCP Family Medicine; Visit Provider Internal Medicine Medical Oncology
DX: C50.211 Malignant neoplasm of upper-inner quadrant of right female breast (principal); R25.2 Cramp and spasm; Z51.81 Encounter for therapeutic drug level monitoring; Z79.899 Other long term (current) drug therapy; Z17.0 Estrogen receptor positive status [ER+]
CPT/HCPCS: 80053; 83735; 85025

== ENCOUNTER 2020-11-24 05:51 | Outpatient (CLI) | payer MEDICARE, BC, SELFPAY ==
[2020-11-24 08:41] LABS: Basophils % 0.1 %; Hematocrit 39.6 % (37.0-47.0); Hemoglobin 12.8 g/dL (11.5-15.3); Lymphocytes # 1.1 10^3/uL (0.8-4.8); Lymphocytes % 10.8 %; Mean Corpuscular HGB Conc 32.3 g/dL (30.0-36.0); Mean Corpuscular Hemoglobin 30.8 pg (28.0-34.0); Mean Corpuscular Volume 95.2 fL (81-99); Mean Platelet Volume 9.2 fL (7.4-10.4); Monocytes # 1.2 10^3/uL (0.2-0.9); Monocytes % 11.3 %; Neutrophils # 8.12 10^3/uL (1.8-7.7); Neutrophils % 76.9 %; Nucleated Red Blood Cells % 0 %; Platelet Count 352 10^3/cmm (130-400); Red Blood Count 4.16 10^6/uL (4.1-5.3); Red Cell Distribution Width 13.5 % (12.1-15.1); White Blood Count 10.6 10^3/uL (4.0-10.0)
[2020-11-24 08:55] LABS: Alanine Aminotransferase 21 U/L (0-33); Albumin Level 4.1 g/dL (3.5-5.2); Alkaline Phosphatase 80 IU/L (35-105); Anion Gap 15.8 (5-19); Aspartate Amino Transferase 16 U/L (0-32); Blood Urea Nitrogen 13 mg/dL (8-23); Calcium 9.2 mg/dL (8.5-10.5); Carbon Dioxide 24 mmol/L (22-29); Chloride 104 mmol/L (98-107); Glucose 160 mg/dL (65-115); Osmolality Calculated 294 mOsm/kg (285-295); Potassium 3.8 mmol/L (3.5-5.1); Sodium 140 mmol/L (136-145); Total Bilirubin 0.4 mg/dL (0.15-1.2); Total Protein 7.1 g/dL (6.6-8.7)
[2020-11-24] MEDS: palonosetron 0.25 mg/5 mL SDV IVP (10:15)
[2020-11-24] MEDS: sodium chloride 0.9% 250 ML IV (10:15)
[2020-11-24] MEDS: famotidine 20 mg/2 mL INJ IVP (10:16)
[2020-11-24] MEDS: diphenhydrAMINE 50 mg/mL SDV 1mL 25 MG IVP (10:18)
[2020-11-24] MEDS: pegfilgrastim 6 mg/0.6 mL Kit (onpro) SUBCUT (13:20)
--- NOTE | 2020-12-04 09:43 | ONC FU_ITS ---
[facility] Patient Note Patient: Sammi Harrell Unit #: [id number]: [id number] Dictated By: Jagdish SoteloDate of Visit: Nov 24, 2020 Onc MED Follow-Up/Prog Note Chief Complaint: Malignant carcinoid. History of Present Illness: Ms Harrell is a 70 year-old woman malignant carcinoid involving the left lung, stage IIA (T1b, N1, M0). She had presented with new onset of cough. A chest CT on 09/30/2014 showed a concerning left upper lobe lesion. Further evaluation with PET/CT on 10/09/2015 revealed a 2.3 cm left upper lobe mass in the evelio-hilar region with SUV of 4.8, without regional lymphadenopathy. Bronchoscopy on 10/15/2015 was non-diagnostic. On 11/03/15 she underwent a formal left upper lobectomy by Dr. Short. Her surgical pathology revealed a 2.5 cm centimeter atypical carcinoid with spindle cell type. Ki-67 index was with low proliferative rate. One hilar lymph node was involved by direct extension from the main tumor mass. An additional 9 lymph nodes were reported to be benign. Thus, her disease was pathologic stage IIA (T1b, N1, M0). She was seen by Dr. López on 11/24/2015. Expectant management was recommended. Surveillance chest CT scan performed on 05/26/2016 showed a new left anterolateral lower lobe 6-7 mm non calcified nodule, felt to be non specific. There was stable appearance of a right lower lobe subpleural nodule. There was new left and similar right lower lung zone scarring or subsegmental atelectasis. A repeat CT scan performed on 08/25/2016 showed no recurrent mass or adenopathy. There were multiple bilateral subcentimeter pulmonary/ subpleural nodules which had been present since 09/30/2015 and changed minimally in size, probably due to volume averaging. These nodules were all negative on PET/CT from 10/09/2015. With those findings she continued on observation/expectant management. Her subsequent surveillance CT scans in 2017, 2018, and 2018 showed no evidence of disease progression. Her surveillance CT scans of the chest, abdomen, and pelvis on 08/16/2020 showed no findings of recurrent or metastatic neoplasm. There were no changes compared to the August 2019 study. Her other medical illnesses include irritable bowel syndrome, nephrolithiasis, fibromyalgia, and chronic anxiety. She has a history of colonic polyps. She is a nonsmoker. INTERIM HISTORY: Her diagnostic mammogram on 08/13/2020 showed an irregular focal asymmetry in the upper inner quadrant of the right breast measuring 1.3 cm. Ultrasound showed an irregular hypoechoic mass with indistinct margins at the 1:00 axis of the right breast measuring 0.5 x 0.4 x 0.4 cm. The findings were BI-RADS 4, suspicious. She underwent ultrasound directed biopsy on 08/13/2020. Pathology showed grade 2 invasive ductal carcinoma. There was associated high-grade ductal carcinoma in situ. The breast prognostic profile showed ER positive at 99% and IN positive at 39%. Tumor was negative for overexpression of HER-2/emelina, 1+ by IHC. On 09/09/2020 she underwent right breast lumpectomy with axillary sentinel lymph node biopsy. Pathology on the lumpectomy showed grade 3 invasive ductal carcinoma measuring 1.6 cm in greatest dimension. The margins were free of tumor, with the closest being the deep margin at 2 mm. There was no involvement in 1 sentinel lymph node. Her Oncotype DX showed recurrence score of 34, corresponding to 22% risk of distant recurrence at 9 years with adjuvant hormonal therapy. The predicted benefit with addition of adjuvant chemotherapy was > 15%. A repeat Oncotype DX was requested, and that result is pending. Ms Harrell was seen by Dr Rollins to review the pathology results and to discuss further management of the breast cancer-Grade 3 infiltrating ductal carcinoma of the right breast, stage IA (pT1c, pN0, M0), ER/IN positive and HER-2 negative. Her tumor was high risk by Oncotype DX with recurrence score 34 corresponding to a 22% 9-year risk of distant recurrence with hormonal therapy alone. The predicted benefit with addition of adjuvant chemotherapy was > 15%. She underwent ultrasound directed biopsy of the right breast on 08/13/2020 followed by right breast lumpectomy with axillary sentinel lymph node biopsy on 09/09/2020. The pathology results were reviewed with the patient per Dr Rollins, including the results of the Oncotype DX. She has a stage Ia infiltrating ductal carcinoma of the right breast which is ER/IN positive and HER-2/emelina negative. The Oncotype DX, though, came back at high risk, and Dr Rollins reviewed the results of that study with her in detail. The estimated 9-year risk of recurrence with adjuvant hormonal therapy alone is 22% but with a predicted benefit of > 15% with addition of adjuvant chemotherapy. As such, she was recommended to pursue adjuvant chemotherapy with 4 cycles of cyclophosphamide/docetaxel. She began treatment with docetaxel and cyclophoshamide on 11/03/2020. Mrs. Padgett is here today for follow-up. She is due for cycle 2-day 1 docetaxel cyclophosphamide. She also has support with growth factor with Neulasta Onpro. She states overall she is feeling better. She did have bone pain with the Neulasta. She also states that she had significant constipation but that has now resolved. She states that she had pain between her shoulder blades and her hips and her legs are really achy. She states she also has fibromyalgia so it is hard for her to tell which problem is the issue at the time. She states it could have been from the Neulasta but it could have been from her fibromyalgia as well. She states that she has had some neuropathy in her feet but that is not particularly new but seems to be a little bit worse than normal. She states that she did have to change her shoes 3 times in 1 day. 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 She denies any nausea or vomiting. She denies any fever or chills. She states that her bowels are now normal. She did use some stool softeners and laxatives and that has resolved. We did discuss at length that it could be the Aloxi but she states she would rather be constipated than nauseated . She has no new pain today and states her pain is well controlled. She does have some fatigue but states that is not particularly uncommon for her it comes and goes as well. She states that she is eating good. She has some neuropathy in her hands and feet today but states that about her normal. Her ECOG is 1. Past Medical History: Anxiety Fibromyalgia History of colonic polyps Irritable bowel syndrome Nephrolithiasis Past Surgical History: Bilateral cataract excisions in 2017 Left upper lobectomy in 2016 Knee replacement in 2013 Knee replacement in 2012 Cholecystectomy in 1991 Allergies: clindamycin and macrobid. Medications: Albuterol Sulfate 1 ((2.5 mg/3ml) 0.083%) Nebulization solution Inhalation four times a day PRN ALPRAZolam 0.25 mg (of 0.5 mg) Tablet Oral PRN Hydrocodone-Acetaminophen 1 Tablet (of 5-325 mg) Oral q 6 hours PRN Imodium A-D Capsule Oral PRN Lomotil Tablet Oral PRN Pantoprazole Sodium 1 (40 mg) Tablet, enteric coated Oral daily TraZODone HCl 100 mg (of 50 mg) Tablet Oral daily Family History: Ms. Harrell's mother at age 93. Ms. Harrell's father at age 92. Ms. Harrell has 1 brother who is : lung cancer. Her father had colon cancer and she thinks her paternal grandfather may also have had colon cancer. Two cousins on her father side had colon cancer and an aunt on her father's side had breast cancer. A brother of lung cancer at age 49. 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 Ms. Harrell has never smoked. She has no history of drinking. She is a non-smoker. She does not drink alcohol. Review Of Symptoms: Constitutional Denies fevers, chills, night sweats, excessive fatigue or weight loss. Allergic/Immunologic No reactions. Eyes Denies significant visual changes. No diplopia. No amaurosis. Hematologic/Lymphatic Denies easy bruising or bleeding. The patient denies any tender or palpable lymph nodes. Respiratory Denies dyspnea on exertion, chest pain, cough or hemoptysis. Denies orthopnea. Cardiovascular Denies anginal chest pain, palpitations or orthopnea. Gastrointestinal Denies nausea, vomiting, diarrhea, GI bleeding. Denies change in bowel habits and/or stool color, no heartburn or early satiety. Constipation as above. Genitourinary (F) No hematuria, hesitancy, incontinence, vaginal bleeding, discharge or other problems with urination. Musculoskeletal Denies joint pain, swelling or redness. No decreased range of motion. Integumentary Denies chronic rashes, inflammation, ulcerations or skin changes. Neurologic Denies headache, blurred vision, and no areas of focal weakness or numbness. Normal gait. No sensory problems. Psychiatric Denies insomnia, depression, kary or mood swings. Vital Signs: Performed on Nov 24, 2020 09:03 Height - 69.00 in Weight - 292.2 lbs (HIGH) BSA - 2.43 sq.m BMI - 43.15 (HIGH) Temperature - 97.9 F (LOW) Pulse - 80 /min Respiration - 18 /min BP - 148/85 mm(hg) (HIGH) O2 Sat - 95 % (LOW) Pain - 3 Fatigue - 3,1 - No physically strenuous activity, but ambulatory and able to carry out light or sedentary work (e.g. office work, light house work). (ECOG) Physical Examination: Constitutional Alert, oriented, no acute distress. Skin pink, warm and dry. Head Normocephalic; atraumatic. Eyes Conjunctivae and sclerae are clear and without icterus. Pupils are reactive and equal. ENMT No oral exudates, ulcers, masses, thrush or mucositis. Oropharynx clear. Tongue normal. Hematologic/Lymphatic No petechiae or purpura. No tender or palpable lymph nodes in the cervical or supraclavicular areas. Respiratory Lungs are clear to auscultation without rhonchi or wheezing. Cardiovascular Regular rate and rhythm of heart without murmurs,clicks, gallops or rubs. Abdomen Non-tender, non-distended, no masses or ascites. Good bowel sounds noted in all quads. No guarding or rebound tenderness. No pulsatile masses. Back/Spine Non-tender to palpation. Extremities No visible deformities, no cyanosis, clubbing or edema. Musculoskeletal No tenderness or swelling, normal range of motion without obvious weakness. Integumentary No rashes or lesions. Neurologic No sensory or motor deficits, normal cerebellar function, normal gait. Psychiatric Alert and oriented times three. Coherent speech. Verbalizes understanding of our discussions today. Laboratory:Test performed on Dec 01, 2020 09:05 Ua Color Dark Yellow Ua Appearance SL Hazy Ua Glucose Norm Ua Bilirubin Neg Ua Ketones 1+ Ua Specific [place] 1.015 Ua Blood Neg Ua pH 5 Ua Protein Neg Ua Nitrites Negative Ua Leukocyte Esterase Negative Ua Micro: WBC 0-4 /hpf Ua Micro: RBC NONE /hpf Ua Micro: Squam Epith Cells 25-40 CULTURE NOT INDICATED DUE TO >10 EPITHELIAL CELLS PRESENT ON MICROSCOPIC EXAM. POSSIBLE SPECIMEN CONTAMINATION. /hpf Ua Micro: Bacteria 4+ /hpf Test performed on Dec 01, 2020 08:50 Sodium 140 mmol/L Potassium 3.7 mmol/L Chloride 103 mmol/L CO2 28 mmol/L Anion Gap 12.7 BUN 9 mg/dL Creatinine 0.6 mg/dL Cr Clearance (Est) 179.7000 mL/min Glucose 114 mg/dL Osmolality - Calculated 290 mOsm/kg Calcium 8.7 mg/dL Protein, Total 6.5 g/dL Albumin 3.7 g/dL Globulin 2.8 g/dL Bilirubin, Total 0.4 mg/dL ALT (SGPT) 31 U/L AST (SGOT) 21 U/L Alkaline Phosphatase 89 IU/L WBC 4.6 10 3/uL RBC 3.92 10 6/uL HGB 12.0 g/dL HCT 37.7 % MCV 96.2 fL MCH 30.6 pg MCHC 31.8 g/dL RDW 13.3 % Platelet Count 197 10 3/cmm MPV 9.8 fL Neutrophils 1.86 10 3/uL Lymphocytes 0.9 10 3/uL Monocytes 0.9 10 3/uL Eosinophils 0.0 10 3/uL Basophils 0.0 10 3/uL Neutrophil % 40.2 % Lymphocyte % 19.8 % Monocyte % 19.2 % Eosinophil % 0.4 % Basophils % 0.4 % NRBC % 1.9 % CBC Slide Review Slide Review Perform SLIDE REVIEW AGREES WITH AUTOMATED RESULTS ST Test performed on Nov 17, 2020 10:15 Magnesium 2.1 mg/dL Test performed on Aug 16, 2020 13:58 Serotonin, Serum 51 ng/mL Chromogranin A 54 ng/mL Test performed on Aug 16, 2020 07:00 U Total Volume 1925 mL U 5-HIAA, 24hr 4.6 mg/24 h Impression: 1. Grade 3 infiltrating ductal carcinoma of the right breast, stage IA (pT1c, pN0, M0), ER/IN positive and HER-2 negative. Her tumor was high risk by Oncotype DX. 2. 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 She underwent left upper lobectomy on 11/03/2015. 3. Irritable bowel syndrome. 4. Nephrolithiasis. 5. Fibromyalgia. 6. Chronic anxiety. Plan: 1. Grade 3 infiltrating ductal carcinoma of the right breast, stage IA (pT1c, pN0, M0), ER/IN positive and HER-2 negative. Her tumor was high risk by Oncotype DX with recurrence score 34 corresponding to a 22% 9-year risk of distant recurrence with hormonal therapy alone. The predicted benefit with addition of adjuvant chemotherapy was > 15%. She underwent ultrasound directed biopsy of the right breast on 08/13/2020 followed by right breast lumpectomy with axillary sentinel lymph node biopsy on 09/09/2020. The pathology results were reviewed with the patient, including the results of the Oncotype DX. She has a stage Ia infiltrating ductal carcinoma of the right breast which is ER/IN positive and HER-2/emelina negative. The Oncotype DX, though, came back at high risk, and Dr Rollins reviewed the results of that study with her in detail. The estimated 9-year risk of recurrence with adjuvant hormonal therapy alone is 22% but with a predicted benefit of > 15% with addition of adjuvant chemotherapy. As such, she was recommended to pursue adjuvant chemotherapy with 4 cycles of cyclophosphamide/docetaxel. In the meantime, she also is aware that following completion of adjuvant chemotherapy she will need to undergo radiation to the right breast and she will then begin adjuvant hormonal therapy with an aromatase inhibitor. The recommended duration of treatment is 5 years. A. Proceed with cycle 2 docetaxel cyclophosphamide. We will dose reduce the docetaxel 10% today for the neuropathy. B. Steroid compliance confirmed. C. We did discuss discontinuing the Aloxi due to the severe constipation with cycle 1 but she request not to do that yet she states that she thinks she can do better with her bowels and did not want a risk of being nauseated . D. Today's labs reviewed in detail discussed with Reinier Harrell and a copy was given to her. WBC 10.6, hemoglobin 12.8, platelets 352,000 ANC is 8120. Potassium 3.8 random glucose 160 creatinine 0.7 LFTs are normal. E. Continue growth factor support with Neulasta Onpro due to high risk neutropenic regimen. 2. 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 She underwent left upper lobectomy on 11/03/2015. She has been followed on observation/expectant management. Thus far there has been no evidence of recurrence. 3. Follow-up plan A. She will have weekly interim counts for chemotherapy monitoring. B. She will return in 3 weeks with CBC CMP for cycle 3 of 4 docetaxel cyclophosphamide. C. She states she will be seeing Dr. Shipley the first part of December and their office had called for confirmation of the appointment to make sure that she attends the appointment to review her BRCA results. She is very anxious about the BRCA results and requested that we call to see if she could get those results sent to us so that we can go over those with her. C. We will plan to refer her to radiation therapy after her third cycle of chemotherapy because she is so anxious regarding her plan of care and wanted to get more information on that before she finishes her chemotherapy. She is a aware that that would be an early referral but she states that would help her anxiety tremendously. D. Mrs. Harrell has been instructed to contact us in the interim should questions or problems arise. Signed By: Jagdish Sotelo-, [facility] Mark Rollins MD <<Signature on File>>
== END 2020-11-24 05:52 | disposition home or self-care (01) ==
LOC: ONCMED 05:53
PROVIDERS: PCP Family Medicine; Visit Provider Nurse Practitioner
DX: Z51.11 Encounter for antineoplastic chemotherapy (principal); Z51.12 Encounter for antineoplastic immunotherapy; C50.211 Malignant neoplasm of upper-inner quadrant of right female breast; Z17.0 Estrogen receptor positive status [ER+]; C7A.090 Malignant carcinoid tumor of the bronchus and lung; K58.9 Irritable bowel syndrome, unspecified; N20.0 Calculus of kidney; M79.7 Fibromyalgia; F41.9 Anxiety disorder, unspecified; Z79.899 Other long term (current) drug therapy; Z76.89 Persons encountering health services in other specified circumstances
CPT/HCPCS: 36415; 80053; 85025; 96367; 96372; 96375; 96377; 96413; 96417; 99215; J1100; J1200; J2469; J2505; J3490; J7040; J7050; J9070; J9171

== ENCOUNTER 2020-12-08 05:37 | Outpatient (RCR) | payer MEDICARE, BC, SELFPAY ==
[2020-12-01 09:28] LABS: Basophils % 0.4 %; Eosinophils % 0.4 %; Hematocrit 37.7 % (37.0-47.0); Lymphocytes # 0.9 10^3/uL (0.8-4.8); Lymphocytes % 19.8 %; Mean Corpuscular HGB Conc 31.8 g/dL (30.0-36.0); Mean Corpuscular Hemoglobin 30.6 pg (28.0-34.0); Mean Corpuscular Volume 96.2 fL (81-99); Mean Platelet Volume 9.8 fL (7.4-10.4); Monocytes # 0.9 10^3/uL (0.2-0.9); Monocytes % 19.2 %; Neutrophils # 1.86 10^3/uL (1.8-7.7); Neutrophils % 40.2 %; Nucleated Red Blood Cells # 0.1 /100WBC; Nucleated Red Blood Cells % 1.9 %; Platelet Count 197 10^3/cmm (130-400); Red Blood Count 3.92 10^6/uL (4.1-5.3); Red Cell Distribution Width 13.3 % (12.1-15.1); White Blood Count 4.6 10^3/uL (4.0-10.0)
[2020-12-01 09:50] LABS: Add Urine Microscopic? YES; Bilirubin Urine Neg (Negative); Blood Urine Neg (Negative); Glucose Urine UA Norm (Normal); Ketones Urine 1+ (Negative); Leukocyte Esterase Urine Negative (Negative); Nitrate Urine Negative (Negative); Protein Urine Neg (Negative); Specific Gravity, Urine 1.015 (1.005-1.030); Urine Appearance SL Hazy (CLEAR); Urine Color Dark Yellow (Yellow); Urobilinogen Urine Norm (Negative); pH Urine 5 (5-7)
[2020-12-01 09:51] LABS: Add Urine Culture? No; Bacteria Urine 4+ /hpf; Squamous Epithelial Cell Urine 25-40 /hpf (0-5); WBC Urine 0-4 /hpf (0-5)
[2020-12-01 10:13] LABS: Slide Review Slide Review Perform
[2020-12-01 10:28] LABS: Alanine Aminotransferase 31 U/L (0-33); Albumin Level 3.7 g/dL (3.5-5.2); Alkaline Phosphatase 89 IU/L (35-105); Anion Gap 12.7 (5-19); Aspartate Amino Transferase 21 U/L (0-32); Blood Urea Nitrogen 9 mg/dL (8-23); Calcium 8.7 mg/dL (8.5-10.5); Carbon Dioxide 28 mmol/L (22-29); Chloride 103 mmol/L (98-107); Globulin 2.8 g/dL (1.3-4.6); Glucose 114 mg/dL (65-115); Osmolality Calculated 290 mOsm/kg (285-295); Potassium 3.7 mmol/L (3.5-5.1); Sodium 140 mmol/L (136-145); Total Bilirubin 0.4 mg/dL (0.15-1.2); Total Protein 6.5 g/dL (6.6-8.7)
[2020-12-08 10:10] LABS: Basophils # 0.1 10^3/uL (0.0-0.1); Basophils % 0.7 %; Hematocrit 37.8 % (37.0-47.0); Hemoglobin 11.9 g/dL (11.5-15.3); Lymphocytes # 1.2 10^3/uL (0.8-4.8); Lymphocytes % 9.8 %; Mean Corpuscular HGB Conc 31.5 g/dL (30.0-36.0); Mean Corpuscular Hemoglobin 30.7 pg (28.0-34.0); Mean Corpuscular Volume 97.7 fL (81-99); Mean Platelet Volume 9.8 fL (7.4-10.4); Monocytes # 0.8 10^3/uL (0.2-0.9); Monocytes % 6.6 %; Neutrophils % 80.8 %; Nucleated Red Blood Cells % 0 %; Platelet Count 141 10^3/cmm (130-400); Red Blood Count 3.87 10^6/uL (4.1-5.3); Red Cell Distribution Width 14.3 % (12.1-15.1); White Blood Count 11.9 10^3/uL (4.0-10.0)
[2020-12-08 10:22] LABS: Alanine Aminotransferase 25 U/L (0-33); Albumin Level 3.7 g/dL (3.5-5.2); Alkaline Phosphatase 96 IU/L (35-105); Aspartate Amino Transferase 24 U/L (0-32); Blood Urea Nitrogen 11 mg/dL (8-23); Calcium 8.6 mg/dL (8.5-10.5); Carbon Dioxide 27 mmol/L (22-29); Chloride 107 mmol/L (98-107); Globulin 2.9 g/dL (1.3-4.6); Glucose 109 mg/dL (65-115); Osmolality Calculated 294 mOsm/kg (285-295); Sodium 142 mmol/L (136-145); Total Bilirubin 0.4 mg/dL (0.15-1.2); Total Protein 6.6 g/dL (6.6-8.7)
== END 2020-12-08 23:59 | disposition home or self-care (01) ==
LOC: ONCMED 05:37
PROVIDERS: PCP Family Medicine; Visit Provider Internal Medicine Medical Oncology
DX: C50.211 Malignant neoplasm of upper-inner quadrant of right female breast (principal); N39.0 Urinary tract infection, site not specified; Z51.81 Encounter for therapeutic drug level monitoring; Z79.899 Other long term (current) drug therapy
CPT/HCPCS: 36592; 80053; 81001; 85025

== ENCOUNTER 2021-01-05 06:57 | Outpatient (RCR) | payer MEDICARE, BC, SELFPAY ==
[2020-12-15 09:03] LABS: Basophils % 0.2 %; Hemoglobin 11.9 g/dL (11.5-15.3); Lymphocytes # 0.8 10^3/uL (0.8-4.8); Lymphocytes % 13.5 %; Mean Corpuscular HGB Conc 32.2 g/dL (30.0-36.0); Mean Corpuscular Hemoglobin 30.8 pg (28.0-34.0); Mean Corpuscular Volume 95.9 fL (81-99); Mean Platelet Volume 9.2 fL (7.4-10.4); Monocytes # 0.2 10^3/uL (0.2-0.9); Monocytes % 2.8 %; Neutrophils # 4.67 10^3/uL (1.8-7.7); Neutrophils % 82.8 %; Nucleated Red Blood Cells % 0 %; Platelet Count 346 10^3/cmm (130-400); Red Blood Count 3.86 10^6/uL (4.1-5.3); White Blood Count 5.6 10^3/uL (4.0-10.0)
[2020-12-15 09:13] LABS: Protein Urine Neg (Negative); Urine Appearance Hazy (CLEAR); Urine Color Yellow (Yellow); pH Urine 5 (5-7)
[2020-12-15 09:14] LABS: Add Urine Microscopic? YES; Bilirubin Urine Neg (Negative); Blood Urine 3+ (Negative); Glucose Urine UA Norm (Normal); Ketones Urine Negative (Negative); Leukocyte Esterase Urine Negative (Negative); Nitrate Urine Negative (Negative); Urobilinogen Urine Norm (Negative)
[2020-12-15 09:15] LABS: Add Urine Culture? Yes; Bacteria Urine 3+ /hpf; RBC Urine >100 /hpf (0-2)
[2020-12-15 09:31] LABS: Alanine Aminotransferase 22 U/L (0-33); Albumin Level 4.1 g/dL (3.5-5.2); Alkaline Phosphatase 90 IU/L (35-105); Anion Gap 13.9 (5-19); Aspartate Amino Transferase 19 U/L (0-32); Blood Urea Nitrogen 14 mg/dL (8-23); Calcium 9.1 mg/dL (8.5-10.5); Carbon Dioxide 24 mmol/L (22-29); Chloride 105 mmol/L (98-107); Globulin 2.8 g/dL (1.3-4.6); Glucose 182 mg/dL (65-115); Osmolality Calculated 293 mOsm/kg (285-295); Potassium 3.9 mmol/L (3.5-5.1); Sodium 139 mmol/L (136-145); Total Bilirubin 0.4 mg/dL (0.15-1.2); Total Protein 6.9 g/dL (6.6-8.7)
[2020-12-15] MEDS: sodium chloride 0.9% 500 ML 75 ML IV (10:05)
[2020-12-15] MEDS: famotidine 20 mg/2 mL INJ IVP (10:07)
[2020-12-15] MEDS: diphenhydrAMINE 50 mg/mL SDV 1mL 25 MG IVP (10:10)
[2020-12-15] MEDS: ondansetron 2 mg/ML SDV 2 mL 8 MG IV (11:32)
[2020-12-15] MEDS: pegfilgrastim 6 mg/0.6 mL Kit (onpro) SUBCUT (13:10)
--- NOTE | 2020-12-18 15:09 | ONC FU_ITS ---
Dr. Rollins Patient Follow-Up Note Patient: Sammi Harrell Unit #: [id number]: 1950 Dicatated By: Mark Rollins M.D.Date of Visit:Dec 15, 2020 Onc Med Follow-up/Prog Note Chief Complaint: Malignant carcinoid. History of Present Illness: This is a 70 year-old woman malignant carcinoid involving the left lung, stage IIA (T1b, N1, M0). She had presented with new onset of cough. A chest CT on 09/30/2014 showed a concerning left upper lobe lesion. Further evaluation with PET/CT on 10/09/2015 revealed a 2.3 cm left upper lobe mass in the evelio-hilar region with SUV of 4.8, without regional lymphadenopathy. Bronchoscopy on 10/15/2015 was non-diagnostic. On 11/03/15 she underwent a formal left upper lobectomy by Dr. Short. Her surgical pathology revealed a 2.5 cm centimeter atypical carcinoid with spindle cell type. Ki-67 index was with low proliferative rate. One hilar lymph node was involved by direct extension from the main tumor mass. An additional 9 lymph nodes were reported to be benign. Thus, her disease was pathologic stage IIA (T1b, N1, M0). She was seen by Dr. López on 11/24/2015. Expectant management was recommended. Surveillance chest CT scan performed on 05/26/2016 showed a new left anterolateral lower lobe 6-7 mm non calcified nodule, felt to be non specific. There was stable appearance of a right lower lobe subpleural nodule. There was new left and similar right lower lung zone scarring or subsegmental atelectasis. A repeat CT scan performed on 08/25/2016 showed no recurrent mass or adenopathy. There were multiple bilateral subcentimeter pulmonary/ subpleural nodules which had been present since 09/30/2015 and changed minimally in size, probably due to volume averaging. These nodules were all negative on PET/CT from 10/09/2015. With those findings she continued on observation/expectant management. Her subsequent surveillance CT scans in 2016, 2017, and 2018 showed no evidence of disease progression. Her surveillance CT scans of the chest, abdomen, and pelvis on 08/16/2020 showed no findings of recurrent or metastatic neoplasm. There were no changes compared to the August 2019 study. Her diagnostic mammogram on 08/13/2020 showed an irregular focal asymmetry in the upper inner quadrant of the right breast measuring 1.3 cm. Ultrasound showed an irregular hypoechoic mass with indistinct margins at the 1:00 axis of the right breast measuring 0.5 x 0.4 x 0.4 cm. The findings were BI-RADS 4, suspicious. She underwent ultrasound directed biopsy on 08/13/2020. Pathology showed grade 2 invasive ductal carcinoma. There was associated high-grade ductal carcinoma in situ. The breast prognostic profile showed ER positive at 99% and NE positive at 39%. Tumor was negative for overexpression of HER-2/emelina, 1+ by IHC. On 09/09/2020 she underwent right breast lumpectomy with axillary sentinel lymph node biopsy. Pathology on the lumpectomy showed grade 3 invasive ductal carcinoma measuring 1.6 cm in greatest dimension. The margins were free of tumor, with the closest being the deep margin at 2 mm. There was no involvement in 1 sentinel lymph node. Her Oncotype DX showed recurrence score of 34, corresponding to 22% risk of distant recurrence at 9 years with adjuvant hormonal therapy. The predicted benefit with addition of adjuvant chemotherapy was > 15%. With that finding she was recommended to undergo adjuvant chemotherapy with 4 cycles of cyclophosphamide/docetaxel. Her other medical illnesses include irritable bowel syndrome, nephrolithiasis, fibromyalgia, and chronic anxiety. She has a history of colonic polyps. She is a nonsmoker. INTERIM HISTORY: She began cycle 1 of adjuvant chemotherapy on 11/03/2020. She tolerated it well and she continued with cycle 2 on 11/24/2020. She is seen for a follow-up visit. She has been a little more fatigued since starting the chemotherapy but she is still doing light work. ECOG score is 1. Her appetite has been okay. She has not had fever or hot flashes, but she does have a lot of sweating. She is having some sinus drainage and a little bit of sore throat. Her mouth initially was sore, but that is better now. She says she always has a little cough and she has been short of breath with activity. She does not complain of chest pain. She has been having some nausea around day 4 or 5. She also has been having some constipation, but it is managed adequately with stool softeners. Bladder function has been okay. She has been getting some pain from the Neulasta injection, mainly in the hips and legs. She also has muscle cramping in her legs. She has had a significant headache after treatment. She has had a little bit of worsening in her neuropathy symptoms, but thus far it is tolerable. She has chronic insomnia. Medications: Albuterol Sulfate 1 ((2.5 mg/3ml) 0.083%) Nebulization solution Inhalation four times a day PRN, ALPRAZolam 0.25 mg (of 0.5 mg) Tablet Oral PRN, Hydrocodone-Acetaminophen 1 Tablet (of 5-325 mg) Oral q 6 hours PRN, Imodium A-D Capsule Oral PRN, Lomotil Tablet Oral PRN, Pantoprazole Sodium 1 (40 mg) Tablet, enteric coated Oral daily, TraZODone HCl 100 mg (of 50 mg) Tablet Oral daily Allergies: clindamycin and macrobid. Vital Signs: Performed on Dec 15, 2020 09:24 Height - 69.00 in Weight - 288.4 lbs (LOW) BSA - 2.41 sq.m BMI - 42.59 (HIGH) Temperature - 98.0 F (LOW) Pulse - 87 /min Respiration - 18 /min BP - 169/99 mm(hg) (HIGH) O2 Sat - 93 % (LOW) Pain - 2 Fatigue - 6 Physical Examination: Constitutional - She looks pretty good generally, Eyes - Sclerae nonicteric. Conjunctivae clear, ENMT - No lesions noted in the oral cavity, Hematologic/Lymphatic - No cervical, clavicular, or axillary adenopathy, Respiratory - Lungs are clear, Cardiovascular - Heart rhythm is regular. There is no murmur, gallop, or rub noted, Abdomen - Distended. Liver and spleen are not enlarged. There is no abdominal mass or ascites noted and there is no inguinal adenopathy, Extremities - There are venous stasis changes bilaterally. There is currently no edema, Neurologic - No focal neurologic deficits noted. Lab/Imaging: Test performed on Dec 15, 2020 08:15 Sodium 139 mmol/L Potassium 3.9 mmol/L Chloride 105 mmol/L CO2 24 mmol/L Anion Gap 13.9 BUN 14 mg/dL Creatinine 0.7 mg/dL Cr Clearance (Est) 154.0300 mL/min Glucose 182 mg/dL Osmolality - Calculated 293 mOsm/kg Calcium 9.1 mg/dL Protein, Total 6.9 g/dL Albumin 4.1 g/dL Globulin 2.8 g/dL Bilirubin, Total 0.4 mg/dL ALT (SGPT) 22 U/L AST (SGOT) 19 U/L Alkaline Phosphatase 90 IU/L WBC 5.6 10 3/uL RBC 3.86 10 6/uL HGB 11.9 g/dL HCT 37.0 % MCV 95.9 fL MCH 30.8 pg MCHC 32.2 g/dL RDW 15.0 % Platelet Count 346 10 3/cmm MPV 9.2 fL Neutrophils 4.67 10 3/uL Lymphocytes 0.8 10 3/uL Monocytes 0.2 10 3/uL Eosinophils 0.0 10 3/uL Basophils 0.0 10 3/uL Neutrophil % 82.8 % Lymphocyte % 13.5 % Monocyte % 2.8 % Eosinophil % 0.0 % Basophils % 0.2 % NRBC % 0 % Problem List: 1. Grade 3 infiltrating ductal carcinoma of the right breast, stage IA (pT1c, pN0, M0), ER/NE positive and HER-2 negative. Her tumor was high risk by Oncotype DX. 2. 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 She underwent left upper lobectomy on 11/03/2015. 3. Irritable bowel syndrome. 4. Nephrolithiasis. 5. Fibromyalgia. 6. Chronic anxiety. Problems Addressed with this Encounter and Plan: 1. Patient with grade 3 infiltrating ductal carcinoma of the right breast, stage IA (pT1c, pN0, M0), ER/NE positive and HER-2 negative. Her tumor was high risk by Oncotype DX with recurrence score 34 corresponding to a 22% 9-year risk of distant recurrence with hormonal therapy alone. The predicted benefit with addition of adjuvant chemotherapy was > 15%. She underwent ultrasound directed biopsy of the right breast on 08/13/2020 followed by right breast lumpectomy with axillary sentinel lymph node biopsy on 09/09/2020. In the setting of a high Oncotype DX score and with a predicted benefit of > 15%, she was recommended to undergo adjuvant chemotherapy with 4 cycles of cyclophosphamide/docetaxel. She began cycle 1 on 11/03/2020. She tolerated it well and she continued with cycle 2 on 11/24/2020. At this point she is having some fatigue she also has had some mild delayed nausea. She has had headache following her treatment, which I suspect is due to the Aloxi. Overall, she has been tolerating the chemotherapy well. She will proceed now with cycle 3 of cyclophosphamide/docetaxel. The dosages will remain the same. She is going to continue the Neulasta prophylactically. I will change her antiemetic regimen to ondansetron in place of Aloxi, and I will give her a dexamethasone taper with this cycle. Her blood counts will be monitored weekly. She will be scheduled for a follow-up visit in 3 weeks. 2. 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 She underwent left upper lobectomy on 11/03/2015. She has been followed on observation/expectant management. Thus far there has been no evidence of recurrence. 3. She has a history of colonic polyps and a significant family history for both colon cancer and breast cancer. I will have to determine if she is eligible for genetic testing for hereditary cancer. Signed By: Mark Rollins M.D. <<Signature on File>>
[2020-12-22 09:05] LABS: Basophils # 0.1 10^3/uL (0.0-0.1); Basophils % 2.2 %; Eosinophils % 0.4 %; Hematocrit 35.6 % (37.0-47.0); Hemoglobin 11.4 g/dL (11.5-15.3); Lymphocytes # 0.9 10^3/uL (0.8-4.8); Lymphocytes % 37.1 %; Mean Corpuscular Hemoglobin 30.7 pg (28.0-34.0); Mean Platelet Volume 9.8 fL (7.4-10.4); Monocytes # 0.7 10^3/uL (0.2-0.9); Monocytes % 28.4 %; Neutrophils % 23.2 %; Nucleated Red Blood Cells % 1.3 %; Platelet Count 208 10^3/cmm (130-400); Red Blood Count 3.71 10^6/uL (4.1-5.3); Red Cell Distribution Width 14.5 % (12.1-15.1); White Blood Count 2.3 10^3/uL (4.0-10.0)
[2020-12-22 09:42] LABS: Neutrophils # 0.53 10^3/uL (1.8-7.7); Slide Review Slide Review Perform
[2020-12-29 09:07] LABS: Basophils # 0.1 10^3/uL (0.0-0.1); Basophils % 0.5 %; Eosinophils % 0.1 %; Hematocrit 35.9 % (37.0-47.0); Hemoglobin 11.5 g/dL (11.5-15.3); Lymphocytes # 1.2 10^3/uL (0.8-4.8); Lymphocytes % 12.2 %; Mean Corpuscular Hemoglobin 30.9 pg (28.0-34.0); Mean Corpuscular Volume 96.5 fL (81-99); Mean Platelet Volume 9.4 fL (7.4-10.4); Monocytes # 0.7 10^3/uL (0.2-0.9); Monocytes % 6.9 %; Neutrophils # 7.83 10^3/uL (1.8-7.7); Neutrophils % 78.8 %; Nucleated Red Blood Cells % 0 %; Platelet Count 127 10^3/cmm (130-400); Red Blood Count 3.72 10^6/uL (4.1-5.3); Red Cell Distribution Width 15.4 % (12.1-15.1); White Blood Count 9.9 10^3/uL (4.0-10.0)
[2021-01-05 09:23] LABS: Basophils % 0.3 %; Eosinophils % 0.3 %; Hematocrit 35.5 % (37.0-47.0); Hemoglobin 11.2 g/dL (11.5-15.3); Lymphocytes # 2.1 10^3/uL (0.8-4.8); Lymphocytes % 33.1 %; Mean Corpuscular HGB Conc 31.5 g/dL (30.0-36.0); Mean Corpuscular Hemoglobin 31.5 pg (28.0-34.0); Mean Corpuscular Volume 99.7 fL (81-99); Mean Platelet Volume 9.3 fL (7.4-10.4); Monocytes # 0.6 10^3/uL (0.2-0.9); Monocytes % 9.9 %; Neutrophils # 3.54 10^3/uL (1.8-7.7); Neutrophils % 55.9 %; Nucleated Red Blood Cells % 0 %; Platelet Count 251 10^3/cmm (130-400); Red Blood Count 3.56 10^6/uL (4.1-5.3); Red Cell Distribution Width 16.5 % (12.1-15.1); White Blood Count 6.3 10^3/uL (4.0-10.0)
[2021-01-05 09:58] LABS: Alanine Aminotransferase 30 U/L (0-33); Albumin Level 3.7 g/dL (3.5-5.2); Alkaline Phosphatase 75 IU/L (35-105); Anion Gap 10.8 (5-19); Aspartate Amino Transferase 26 U/L (0-32); Blood Urea Nitrogen 10 mg/dL (8-23); Calcium 8.3 mg/dL (8.5-10.5); Carbon Dioxide 27 mmol/L (22-29); Chloride 108 mmol/L (98-107); Globulin 2.3 g/dL (1.3-4.6); Glucose 114 mg/dL (65-115); Osmolality Calculated 294 mOsm/kg (285-295); Potassium 3.8 mmol/L (3.5-5.1); Sodium 142 mmol/L (136-145); Total Bilirubin 0.3 mg/dL (0.15-1.2)
== END 2021-01-07 23:59 | disposition home or self-care (01) ==
LOC: ONCMED 06:57
PROVIDERS: PCP Nurse Practitioner Family; Visit Provider Internal Medicine Medical Oncology
DX: Z51.11 Encounter for antineoplastic chemotherapy (principal); C50.211 Malignant neoplasm of upper-inner quadrant of right female breast; Z17.0 Estrogen receptor positive status [ER+]; C78.02 Secondary malignant neoplasm of left lung; K58.9 Irritable bowel syndrome, unspecified; N20.0 Calculus of kidney; M79.7 Fibromyalgia; F41.9 Anxiety disorder, unspecified; Z79.899 Other long term (current) drug therapy
CPT/HCPCS: 36592; 80053; 81001; 85025; 87086; 96367; 96372; 96375; 96413; 96417; 99214; J1100; J1200; J2405; J2505; J3490; J7040; J7050; J9070; J9171

== ENCOUNTER 2021-02-02 05:41 | Outpatient (RCR) | payer MEDICARE, BC, SELFPAY ==
[2021-01-19 08:50] LABS: Basophils % 0.1 %; Hemoglobin 11.7 g/dL (11.5-15.3); Lymphocytes # 1.3 10^3/uL (0.8-4.8); Lymphocytes % 13.7 %; Mean Corpuscular HGB Conc 31.6 g/dL (30.0-36.0); Mean Corpuscular Hemoglobin 31.1 pg (28.0-34.0); Mean Corpuscular Volume 98.4 fL (81-99); Mean Platelet Volume 9.1 fL (7.4-10.4); Monocytes # 1.1 10^3/uL (0.2-0.9); Monocytes % 12.3 %; Neutrophils # 6.75 10^3/uL (1.8-7.7); Neutrophils % 73.6 %; Nucleated Red Blood Cells % 0 %; Platelet Count 236 10^3/cmm (130-400); Red Blood Count 3.76 10^6/uL (4.1-5.3); White Blood Count 9.2 10^3/uL (4.0-10.0)
[2021-01-19 09:15] LABS: Alanine Aminotransferase 21 U/L (0-33); Albumin Level 4.2 g/dL (3.5-5.2); Alkaline Phosphatase 69 IU/L (35-105); Aspartate Amino Transferase 18 U/L (0-32); Blood Urea Nitrogen 14 mg/dL (8-23); Carbon Dioxide 22 mmol/L (22-29); Chloride 107 mmol/L (98-107); Globulin 2.6 g/dL (1.3-4.6); Glucose 101 mg/dL (65-115); Osmolality Calculated 293 mOsm/kg (285-295); Sodium 141 mmol/L (136-145); Total Bilirubin 0.4 mg/dL (0.15-1.2); Total Protein 6.8 g/dL (6.6-8.7)
[2021-01-19] MEDS: sodium chloride 0.9% 250 ML 75 ML IV (11:00)
[2021-01-19] MEDS: famotidine 20 mg/2 mL INJ IVP (11:00)
[2021-01-19] MEDS: ondansetron 2 mg/ML SDV 2 mL 8 MG IV (11:02)
[2021-01-19] MEDS: diphenhydrAMINE 50 mg/mL SDV 1mL 25 MG IV (11:05)
[2021-01-19] MEDS: pegfilgrastim 6 mg/0.6 mL Kit (onpro) SUBCUT (13:40)
[2021-01-26 09:12] LABS: Hematocrit 35.9 % (37.0-47.0); Hemoglobin 11.5 g/dL (11.5-15.3); Lymphocytes # 0.7 10^3/uL (0.8-4.8); Lymphocytes % 34.1 %; Mean Corpuscular Hemoglobin 31.9 pg (28.0-34.0); Mean Corpuscular Volume 99.4 fL (81-99); Mean Platelet Volume 10.1 fL (7.4-10.4); Monocytes # 0.6 10^3/uL (0.2-0.9); Monocytes % 26.8 %; Neutrophils % 29.7 %; Nucleated Red Blood Cells % 0 %; Platelet Count 126 10^3/cmm (130-400); Positive C 1; Positive M 1; Red Blood Count 3.61 10^6/uL (4.1-5.3); White Blood Count 2.1 10^3/uL (4.0-10.0)
[2021-01-26 09:29] LABS: Alanine Aminotransferase 33 U/L (0-33); Albumin Level 3.6 g/dL (3.5-5.2); Alkaline Phosphatase 75 IU/L (35-105); Anion Gap 11.6 (5-19); Aspartate Amino Transferase 23 U/L (0-32); Blood Urea Nitrogen 8 mg/dL (8-23); Calcium 8.1 mg/dL (8.5-10.5); Carbon Dioxide 28 mmol/L (22-29); Chloride 105 mmol/L (98-107); Globulin 2.7 g/dL (1.3-4.6); Glucose 94 mg/dL (65-115); Neutrophils # 0.61 10^3/uL (1.8-7.7); Osmolality Calculated 290 mOsm/kg (285-295); Potassium 3.6 mmol/L (3.5-5.1); Sodium 141 mmol/L (136-145); Total Bilirubin 0.6 mg/dL (0.15-1.2); Total Protein 6.3 g/dL (6.6-8.7)
--- NOTE | 2021-02-01 10:36 | ONC FU_ITS ---
[facility] Patient Note Patient: Sammi Harrell Unit #: [id number]: 1950 Dictated By: Jagdish SoteloDate of Visit: January 19, 2021 Onc MED Follow-Up/Prog Note Chief Complaint: Malignant carcinoid. History of Present Illness: Mrs Harrell is a 70 year-old woman malignant carcinoid involving the left lung, stage IIA (T1b, N1, M0). She had presented with new onset of cough. A chest CT on 09/30/2014 showed a concerning left upper lobe lesion. Further evaluation with PET/CT on 10/09/2015 revealed a 2.3 cm left upper lobe mass in the evelio-hilar region with SUV of 4.8, without regional lymphadenopathy. Bronchoscopy on 10/15/2015 was non-diagnostic. On 11/03/15 she underwent a formal left upper lobectomy by Dr. Short. Her surgical pathology revealed a 2.5 cm centimeter atypical carcinoid with spindle cell type. Ki-67 index was with low proliferative rate. One hilar lymph node was involved by direct extension from the main tumor mass. An additional 9 lymph nodes were reported to be benign. Thus, her disease was pathologic stage IIA (T1b, N1, M0). She was seen by Dr. López on 11/24/2015. Expectant management was recommended. Surveillance chest CT scan performed on 05/26/2016 showed a new left anterolateral lower lobe 6-7 mm non calcified nodule, felt to be non specific. There was stable appearance of a right lower lobe subpleural nodule. There was new left and similar right lower lung zone scarring or subsegmental atelectasis. A repeat CT scan performed on 08/25/2016 showed no recurrent mass or adenopathy. There were multiple bilateral subcentimeter pulmonary/ subpleural nodules which had been present since 09/30/2015 and changed minimally in size, probably due to volume averaging. These nodules were all negative on PET/CT from 10/09/2015. With those findings she continued on observation/expectant management. Her subsequent surveillance CT scans in 2016, 2017, and 2018 showed no evidence of disease progression. Her surveillance CT scans of the chest, abdomen, and pelvis on 08/16/2020 showed no findings of recurrent or metastatic neoplasm. There were no changes compared to the August 2019 study. Her diagnostic mammogram on 08/13/2020 showed an irregular focal asymmetry in the upper inner quadrant of the right breast measuring 1.3 cm. Ultrasound showed an irregular hypoechoic mass with indistinct margins at the 1:00 axis of the right breast measuring 0.5 x 0.4 x 0.4 cm. The findings were BI-RADS 4, suspicious. She underwent ultrasound directed biopsy on 08/13/2020. Pathology showed grade 2 invasive ductal carcinoma. There was associated high-grade ductal carcinoma in situ. The breast prognostic profile showed ER positive at 99% and MO positive at 39%. Tumor was negative for overexpression of HER-2/emelina, 1+ by IHC. On 09/09/2020 she underwent right breast lumpectomy with axillary sentinel lymph node biopsy. Pathology on the lumpectomy showed grade 3 invasive ductal carcinoma measuring 1.6 cm in greatest dimension. The margins were free of tumor, with the closest being the deep margin at 2 mm. There was no involvement in 1 sentinel lymph node. Her Oncotype DX showed recurrence score of 34, corresponding to 22% risk of distant recurrence at 9 years with adjuvant hormonal therapy. The predicted benefit with addition of adjuvant chemotherapy was > 15%. With that finding she was recommended to undergo adjuvant chemotherapy with 4 cycles of cyclophosphamide/docetaxel. Her other medical illnesses include irritable bowel syndrome, nephrolithiasis, fibromyalgia, and chronic anxiety. She has a history of colonic polyps. She is a nonsmoker. INTERIM HISTORY: She began cycle 1 of adjuvant chemotherapy on 11/03/2020. She tolerated it well and she continued with cycle 2 on 11/24/2020. She had cycle 3 on December 15, 2020. She did have chemotherapy-induced neutropenia with an ANC of 530 on day 8. She had had Neulasta prophylactically. She recovered well by day 15 with an ANC of 7800. She took an extra week off between treatments to attend her granddaughter's graduation activities and some family functions. She is here today for follow-up and consideration of cycle 4 docetaxel cyclophosphamide. She states that she has had some right breast tenderness in the nipple area. She denies any skin changes or rash. She denies any nipple drainage. She denies any recent trauma. She states she does notice that has been tender. She does not feel a lump. She has had no further concerns with the breast. She states she just notices been tender for about a week or so. She denies any redness or warmth in the breast area. She denies any fever or chills. She states that she has had a headache and fatigue after her treatment. The headache was some better after her last chemotherapy she thinks. We changed her from Aloxi to Zofran. She also had steroid taper and felt that that did help. She states that she has had no mouth sores, sore throat or difficulty swallowing. She has had fatigue with the chemotherapy but states that she is well rested now. She is very active with her family and community. 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 She states she is had some numbness in her feet but states that is chronic. She does not think it is worsening at this time. She denies any neuropathy in her hands. She states she has not had any nausea or vomiting. She has had no diarrhea or constipation. She states she has occasional lower extremity edema but that is mostly associated with working on her feet all day . She denies any orthopnea. She denies any hemoptysis. She states her appetite is good. Her energy after recovering from the chemotherapy on day 6 or 7 she is starting to feel much better. She states that the steroid taper did help a lot last time and she did not feel the crash as much as she did with the tube prior cycles. She is requesting to continue with a steroid taper. Her ECOG is 0 today. Past Medical History: Anxiety Fibromyalgia History of colonic polyps Irritable bowel syndrome Nephrolithiasis Past Surgical History: Bilateral cataract excisions in 2017 Left upper lobectomy in 2016 Knee replacement in 2014 Knee replacement in 2013 Cholecystectomy in 1992 Allergies: clindamycin and macrobid. Medications: Albuterol Sulfate 1 ((2.5 mg/3ml) 0.083%) Nebulization solution Inhalation four times a day PRN ALPRAZolam 0.25 mg (of 0.5 mg) Tablet Oral PRN Hydrocodone-Acetaminophen 1 Tablet (of 5-325 mg) Oral q 6 hours PRN Imodium A-D Capsule Oral PRN Lomotil Tablet Oral PRN Pantoprazole Sodium 1 (40 mg) Tablet, enteric coated Oral daily TraZODone HCl 100 mg (of 50 mg) Tablet Oral daily Family History: Ms. Harrell's mother at age 93. Ms. Harrell's father at age 92. Ms. Harrell has 1 brother who is : lung cancer. Her father had colon cancer and she thinks her paternal grandfather may also have had colon cancer. Two cousins on her father side had colon cancer and an aunt on her father's side had breast cancer. A brother of lung cancer at age 49. 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 Ms. Harrell has never smoked. She has no history of drinking. She is a non-smoker. She does not drink alcohol. Review Of Symptoms: <See Above> Vital Signs: Performed on January 19, 2021 10:09 Height - 69.00 in Weight - 289 lbs (HIGH) BSA - 2.42 sq.m BMI - 42.68 (HIGH) Temperature - 98.7 F Pulse - 69 /min Respiration - 18 /min BP - 166/90 mm(hg) (HIGH) O2 Sat - 97 % Pain - 3 Fatigue - 3,0 - Fully active, able to carry on all predisease activities without restrictions. (ECOG) Physical Examination: Constitutional Alert, oriented, no acute distress. Skin pink, warm and dry. Head Normocephalic; atraumatic. Eyes Conjunctivae and sclerae are clear and without icterus. Pupils are reactive and equal. ENMT No oral exudates, ulcers, masses, thrush or mucositis. Oropharynx clear. Tongue normal. Hematologic/Lymphatic No petechiae or purpura. No tender or palpable lymph nodes in the cervical or supraclavicular areas. Respiratory Lungs are clear to auscultation without rhonchi or wheezing. Cardiovascular Regular rate and rhythm of heart without murmurs,clicks, gallops or rubs. Breasts Right breast and nipple are unremarkable. Abdomen Non-tender, non-distended, no masses or ascites. Good bowel sounds noted in all quads. No guarding or rebound tenderness. No pulsatile masses. Back/Spine Non-tender to palpation. Extremities No visible deformities, no cyanosis, clubbing or edema. Musculoskeletal No tenderness or swelling, normal range of motion without obvious weakness. Integumentary No rashes or lesions. Neurologic No sensory or motor deficits, normal cerebellar function, normal gait. Psychiatric Alert and oriented times three. Coherent speech. Verbalizes understanding of our discussions today. Laboratory:see flow sheet Impression: 1. Grade 3 infiltrating ductal carcinoma of the right breast, stage IA (pT1c, pN0, M0), ER/MO positive and HER-2 negative. Her tumor was high risk by Oncotype DX. 2. 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 She underwent left upper lobectomy on 11/03/2015. 3. Irritable bowel syndrome. 4. Nephrolithiasis. 5. Fibromyalgia. 6. Chronic anxiety. Plan/Problems Addressed at this Visit: 1. Grade 3 infiltrating ductal carcinoma of the right breast, stage IA (pT1c, pN0, M0), ER/MO positive and HER-2 negative. Her tumor was high risk by Oncotype DX with recurrence score 34 corresponding to a 22% 9-year risk of distant recurrence with hormonal therapy alone. The predicted benefit with addition of adjuvant chemotherapy was > 15%. She underwent ultrasound directed biopsy of the right breast on 08/13/2020 followed by right breast lumpectomy with axillary sentinel lymph node biopsy on 09/09/2020. The pathology results were reviewed with the patient, including the results of the Oncotype DX. She has a stage Ia infiltrating ductal carcinoma of the right breast which is ER/MO positive and HER-2/emelina negative. The Oncotype DX, though, came back at high risk, and Dr Malik reviewed the results of that study with her in detail. The estimated 9-year risk of recurrence with adjuvant hormonal therapy alone is 22% but with a predicted benefit of > 15% with addition of adjuvant chemotherapy. As such, she was recommended to pursue adjuvant chemotherapy with 4 cycles of cyclophosphamide/docetaxel. In the meantime, she also is aware that following completion of adjuvant chemotherapy she will need to undergo radiation to the right breast and she will then begin adjuvant hormonal therapy with an aromatase inhibitor. The recommended duration of treatment is 5 years. A. Proceed with cycle 4 docetaxel cyclophosphamide. We will continue the same doses of cycle 3. She will continue with Neulasta on pro prophylactically. B. Steroid compliance confirmed. She will also continue her steroid taper as instructed with cycle 3. C. Today's labs reviewed in detail discussed with Ms. Harrell and a copy was given to her. WBC 9.2, hemoglobin 11.7, platelets 236,000, ANC is 6750. Potassium 4.0 random glucose 101 creatinine 0.6 and LFTs are normal. E. Continue growth factor support with Neulasta Onpro due to high risk neutropenic regimen and documented chemotherapy-induced neutropenia. 2. 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 She underwent left upper lobectomy on 11/03/2015. She has been followed on observation/expectant management. Thus far there has been no evidence of recurrence. 3. Right breast/nipple tenderness A. We discussed her breast/nipple tenderness at length. I did not feel any abnormalities on exam. I did tell her that we needed to mammogram/ultrasound it but she requested just to monitor it for now she will follow up with that at her next visit or sooner if it worsens. 4. Follow-up plan A. She will have weekly interim counts for chemotherapy monitoring. B. She will return in 3-4 weeks with CBC CMP for followup with Dr Malik after 4 cycles of docetaxel cyclophosphamide. C. We will plan to refer her to radiation therapy for discussion of radiation post chemotherapy. D. Mrs. Harrell has been instructed to contact us in the interim should questions or problems arise. Signed By: Jagdish Sotelo-, [facility] Mark Malik MD <<Signature on File>>
[2021-02-02 09:36] LABS: Basophils # 0.1 10^3/uL (0.0-0.1); Basophils % 0.8 %; Hematocrit 37.1 % (37.0-47.0); Hemoglobin 11.7 g/dL (11.5-15.3); Lymphocytes # 0.9 10^3/uL (0.8-4.8); Mean Corpuscular HGB Conc 31.5 g/dL (30.0-36.0); Mean Corpuscular Hemoglobin 31.5 pg (28.0-34.0); Mean Corpuscular Volume 99.7 fL (81-99); Mean Platelet Volume 9.3 fL (7.4-10.4); Monocytes # 0.5 10^3/uL (0.2-0.9); Monocytes % 7.5 %; Neutrophils # 5.52 10^3/uL (1.8-7.7); Neutrophils % 77.7 %; Nucleated Red Blood Cells % 0.3 %; Platelet Count 194 10^3/cmm (130-400); Red Blood Count 3.72 10^6/uL (4.1-5.3); Red Cell Distribution Width 14.2 % (12.1-15.1); White Blood Count 7.1 10^3/uL (4.0-10.0)
[2021-02-02 10:00] LABS: Alanine Aminotransferase 25 U/L (0-33); Albumin Level 3.8 g/dL (3.5-5.2); Alkaline Phosphatase 82 IU/L (35-105); Anion Gap 10.9 (5-19); Aspartate Amino Transferase 24 U/L (0-32); Blood Urea Nitrogen 8 mg/dL (8-23); Calcium 8.4 mg/dL (8.5-10.5); Carbon Dioxide 29 mmol/L (22-29); Chloride 106 mmol/L (98-107); Globulin 2.7 g/dL (1.3-4.6); Glucose 87 mg/dL (65-115); Osmolality Calculated 292 mOsm/kg (285-295); Potassium 3.9 mmol/L (3.5-5.1); Sodium 142 mmol/L (136-145); Total Bilirubin 0.4 mg/dL (0.15-1.2); Total Protein 6.5 g/dL (6.6-8.7)
== END 2021-02-07 23:59 | disposition home or self-care (01) ==
LOC: ONCMED 05:41
PROVIDERS: Nurse Practitioner; PCP Nurse Practitioner Family; Visit Provider Internal Medicine Medical Oncology
DX: Z51.12 Encounter for antineoplastic immunotherapy (principal); Z51.11 Encounter for antineoplastic chemotherapy; C34.02 Malignant neoplasm of left main bronchus; F41.9 Anxiety disorder, unspecified; M79.7 Fibromyalgia; K58.9 Irritable bowel syndrome, unspecified; N20.0 Calculus of kidney; Z86.010 Personal history of colon polyps; Z79.899 Other long term (current) drug therapy
CPT/HCPCS: 36592; 80053; 85025; 96367; 96375; 96377; 96413; 96417; 99214; J1100; J1200; J2405; J2505; J3490; J7040; J7050; J9070; J9171

== ENCOUNTER 2021-03-09 05:52 | Outpatient (RCR) | payer MEDICARE, BC, SELFPAY ==
[2021-02-09 08:56] LABS: Basophils # 0.1 10^3/uL (0.0-0.1); Basophils % 0.9 %; Eosinophils % 0.4 %; Hematocrit 37.6 % (37.0-47.0); Hemoglobin 11.9 g/dL (11.5-15.3); Lymphocytes % 18.8 %; Mean Corpuscular HGB Conc 31.6 g/dL (30.0-36.0); Mean Corpuscular Hemoglobin 31.3 pg (28.0-34.0); Mean Corpuscular Volume 98.9 fL (81-99); Mean Platelet Volume 8.9 fL (7.4-10.4); Monocytes # 0.7 10^3/uL (0.2-0.9); Monocytes % 12.6 %; Neutrophils % 66.8 %; Nucleated Red Blood Cells % 0 %; Platelet Count 248 10^3/cmm (130-400); Red Cell Distribution Width 14.6 % (12.1-15.1); White Blood Count 5.5 10^3/uL (4.0-10.0)
[2021-02-09 09:13] LABS: Alanine Aminotransferase 24 U/L (0-33); Alkaline Phosphatase 66 IU/L (35-105); Anion Gap 13.9 (5-19); Aspartate Amino Transferase 26 U/L (0-32); Blood Urea Nitrogen 8 mg/dL (8-23); Calcium 8.3 mg/dL (8.5-10.5); Carbon Dioxide 25 mmol/L (22-29); Chloride 105 mmol/L (98-107); Globulin 2.4 g/dL (1.3-4.6); Glucose 113 mg/dL (65-115); Osmolality Calculated 289 mOsm/kg (285-295); Potassium 3.9 mmol/L (3.5-5.1); Sodium 140 mmol/L (136-145); Total Bilirubin 0.5 mg/dL (0.15-1.2); Total Protein 6.4 g/dL (6.6-8.7)
--- NOTE | 2021-02-09 09:41 | N.ONRAD NP_ITS ---
Radiation Oncology Consultation Patient Name: Sammi Harrell Date of : 1950 Date of Service: 02/09/2021 Attending Physician: Philippe Hernandez M.D. Sammi Harrell was seen in consultation this morning at the request of Mark oRllins M.D. for consideration of adjuvant breast radiotherapy for the management of a recently diagnosed breast cancer. A screening mammogram (images were requested from outside hospital and independently visualized in synapse) ordered on July 30, 2020 revealed an irregular bilobed mass within the central aspect of the right breast. A follow-up diagnostic mammogram completed on August 13, 2020 demonstrated a persistent irregular asymmetry in the upper inner quadrant of the right breast measuring 1.3 cm. Ultrasonography a hypoechoic mass with indistinct margins 1 o'clock position in the right breast 11 cm from the nipple measuring 0.5 cm x 0.4 cm x 0.4 cm. A db guided biopsy completed on August 19, 2020 diagnosed grade 2 invasive ductal carcinoma with associated carcinoma in situ. A right partial mastectomy with sentinel lymph node biopsy was performed on September 09, 2020 by Steven Shipley M.D. The pathology report (personally reviewed in [facility]) diagnosed a grade 3 invasive ductal carcinoma measuring 1.6 cm with high-grade DCIS measuring 2 mm of the solid subtype with necrosis present. All surgical margins were negative. The sentinel lymph node biopsy harvested one benign lymph node. Immunohistochemical staining was positive for estrogen receptor (99%) and progesterone receptor (39%) but negative for HER-2. The Oncotype DX Breast Recurrence Score was 34 indicating a greater than 15% average absolute chemotherapy benefit. Adjuvant chemotherapy (cyclophosphamide and docetaxel) was prescribed for 4 cycles every 21 days (November 03, 2020 through January 19, 2021). I discussed the patient's AJCC pathological stage IA (T1cN0) specific to her breast cancer diagnosis and The National Comprehensive Cancer Network Guidelines recommending adjuvant radiotherapy. I also reviewed the classic study by [facility] comparing mastectomy, lumpectomy, and lumpectomy with radiotherapy and the Early Breast Cancer Trialist Collaborative Group meta-analysis. She is aware that the addition of radiotherapy to lumpectomy provides improvement in local control and overall survival. I would endorse a 3 week course of hypofractionated radiotherapy sequential to a surgical bed boost as per CAPRI Guidelines. A computed tomographic radiotherapy planning scan with contrast in the treatment position will be performed to identify the clinical tumor volumes. The potential toxicities of breast radiotherapy were reviewed. The patient has verbalized understanding would like to proceed as recommended. The patient's medical treatment plan was discussed with Mark Rollins M.D. Signed by: Dr. Philippe Hernandez 02/09/2021 9:39:56 AM
--- NOTE | 2021-02-15 | CT_ITS ---
Radiation Therapy Planning CT images; total exam DLP: 1181.01 mGy-cm MTDD
[2021-02-16 14:16] LABS: Basophils % 0.7 %; Eosinophils % 0.5 %; Hematocrit 37.1 % (37.0-47.0); Hemoglobin 11.9 g/dL (11.5-15.3); Lymphocytes # 1.2 10^3/uL (0.8-4.8); Lymphocytes % 20.3 %; Mean Corpuscular HGB Conc 32.1 g/dL (30.0-36.0); Mean Corpuscular Hemoglobin 31.4 pg (28.0-34.0); Mean Corpuscular Volume 97.9 fL (81-99); Mean Platelet Volume 9.2 fL (7.4-10.4); Monocytes # 0.6 10^3/uL (0.2-0.9); Monocytes % 11.1 %; Neutrophils # 3.88 10^3/uL (1.8-7.7); Neutrophils % 67.2 %; Nucleated Red Blood Cells % 0 %; Platelet Count 268 10^3/cmm (130-400); Red Blood Count 3.79 10^6/uL (4.1-5.3); Red Cell Distribution Width 14.6 % (12.1-15.1); White Blood Count 5.8 10^3/uL (4.0-10.0)
[2021-02-16 14:50] LABS: Alanine Aminotransferase 18 U/L (0-33); Albumin Level 3.8 g/dL (3.5-5.2); Alkaline Phosphatase 64 IU/L (35-105); Anion Gap 13.8 (5-19); Aspartate Amino Transferase 22 U/L (0-32); Blood Urea Nitrogen 10 mg/dL (8-23); Calcium 8.6 mg/dL (8.5-10.5); Carbon Dioxide 26 mmol/L (22-29); Chloride 103 mmol/L (98-107); Globulin 2.7 g/dL (1.3-4.6); Glucose 85 mg/dL (65-115); Osmolality Calculated 286 mOsm/kg (285-295); Potassium 3.8 mmol/L (3.5-5.1); Sodium 139 mmol/L (136-145); Total Bilirubin 0.4 mg/dL (0.15-1.2); Total Protein 6.5 g/dL (6.6-8.7)
--- NOTE | 2021-02-19 13:18 | ONC FU_ITS ---
Dr. Rollins Patient Follow-Up Note Patient: Sammi Harrell Unit #: [id number]: 1950 Dicatated By: Mark Rollins M.D.Date of Visit:Feb 16, 2021 Onc Med Follow-up/Prog Note Chief Complaint: Malignant carcinoid. History of Present Illness: This is a 70 year-old woman malignant carcinoid involving the left lung, stage IIA (T1b, N1, M0). She had presented with new onset of cough. A chest CT on 09/30/2014 showed a concerning left upper lobe lesion. Further evaluation with PET/CT on 10/09/2015 revealed a 2.3 cm left upper lobe mass in the evelio-hilar region with SUV of 4.8, without regional lymphadenopathy. Bronchoscopy on 10/15/2015 was non-diagnostic. On 11/03/15 she underwent a formal left upper lobectomy by Dr. Short. Her surgical pathology revealed a 2.5 cm centimeter atypical carcinoid with spindle cell type. Ki-67 index was with low proliferative rate. One hilar lymph node was involved by direct extension from the main tumor mass. An additional 9 lymph nodes were reported to be benign. Thus, her disease was pathologic stage IIA (T1b, N1, M0). She was seen by Dr. Lpóez on 11/24/2015. Expectant management was recommended. Surveillance chest CT scan performed on 05/26/2016 showed a new left anterolateral lower lobe 6-7 mm non calcified nodule, felt to be non specific. There was stable appearance of a right lower lobe subpleural nodule. There was new left and similar right lower lung zone scarring or subsegmental atelectasis. A repeat CT scan performed on 08/25/2016 showed no recurrent mass or adenopathy. There were multiple bilateral subcentimeter pulmonary/ subpleural nodules which had been present since 09/30/2015 and changed minimally in size, probably due to volume averaging. These nodules were all negative on PET/CT from 10/09/2015. With those findings she continued on observation/expectant management. Her subsequent surveillance CT scans in 2016, 2017, and 2018 showed no evidence of disease progression. Her surveillance CT scans of the chest, abdomen, and pelvis on 08/16/2020 showed no findings of recurrent or metastatic neoplasm. There were no changes compared to the August 2019 study. Her diagnostic mammogram on 08/13/2020 showed an irregular focal asymmetry in the upper inner quadrant of the right breast measuring 1.3 cm. Ultrasound showed an irregular hypoechoic mass with indistinct margins at the 1:00 axis of the right breast measuring 0.5 x 0.4 x 0.4 cm. The findings were BI-RADS 4, suspicious. She underwent ultrasound directed biopsy on 08/13/2020. Pathology showed grade 2 invasive ductal carcinoma. There was associated high-grade ductal carcinoma in situ. The breast prognostic profile showed ER positive at 99% and AK positive at 39%. Tumor was negative for overexpression of HER-2/emelina, 1+ by IHC. On 09/09/2020 she underwent right breast lumpectomy with axillary sentinel lymph node biopsy. Pathology on the lumpectomy showed grade 3 invasive ductal carcinoma measuring 1.6 cm in greatest dimension. The margins were free of tumor, with the closest being the deep margin at 2 mm. There was no involvement in 1 sentinel lymph node. Her Oncotype DX showed recurrence score of 34, corresponding to 22% risk of distant recurrence at 9 years with adjuvant hormonal therapy. The predicted benefit with addition of adjuvant chemotherapy was > 15%. With that finding she was recommended to undergo adjuvant chemotherapy with 4 cycles of cyclophosphamide/docetaxel. Her other medical illnesses include irritable bowel syndrome, nephrolithiasis, fibromyalgia, and chronic anxiety. She has a history of colonic polyps. She is a nonsmoker. INTERIM HISTORY: She began cycle 1 of adjuvant chemotherapy on 11/03/2020. She tolerated it well and she continued with cycle 2 on 11/24/2020, with cycle 3 on 12/15/2020, and with cycle 4 on 01/19/2021. She is seen for a follow-up visit. She describes her self is weary, but her energy is picking up. She is able to do light work. ECOG score is 1. Her appetite is coming back. Her weight is basically stable. She has not had fever. She occasionally wakes up sweaty. She has been having some tenderness and itching in the right breast, mainly in the nipple area. She has not had sore mouth or throat. She has some mild exertional dyspnea. She says she always has cough. She does not complain of chest pain. She is not having nausea. Her acid reflux is adequately managed with Protonix. She has had a lot of constipation, which is unusual for her, as she previously had chronic diarrhea. Bladder function has been okay. She says her joints have been achy, especially the right ankle. She does not complain of headache. She occasionally has dizziness. She has numbness/tingling in her feet, which has gotten worse on the chemotherapy. She also has tender finger and toenails, especially her big toes. Medications: Albuterol Sulfate 1 ((2.5 mg/3ml) 0.083%) Nebulization solution Inhalation four times a day PRN, ALPRAZolam 0.25 mg (of 0.5 mg) Tablet Oral PRN, Hydrocodone-Acetaminophen 1 Tablet (of 5-325 mg) Oral q 6 hours PRN, Imodium A-D Capsule Oral PRN, Lomotil Tablet Oral PRN, Pantoprazole Sodium 1 (40 mg) Tablet, enteric coated Oral daily, TraZODone HCl 100 mg (of 50 mg) Tablet Oral daily Allergies: clindamycin and macrobid. Vital Signs: Blood pressure 138/81, pulse 73, respirations 20, temp 98.3 degrees, oxygen saturation 94%. Physical Examination: Constitutional - She looks pretty good generally, Eyes - Sclerae nonicteric. Conjunctivae clear, ENMT - No lesions noted in the oral cavity, Hematologic/Lymphatic - No cervical or clavicular adenopathy, Respiratory - Lungs are clear, Cardiovascular - Heart rhythm is regular. There is no murmur, gallop, or rub noted, Breasts - The right breast shows no mass or other palpable abnormality. There is no axillary adenopathy noted, Abdomen - Distended. Liver and spleen are not enlarged. There is no abdominal mass or ascites noted and there is no inguinal adenopathy, Extremities - There are venous stasis changes bilaterally. There is mild pedal edema, Neurologic - No focal neurologic deficits noted. Lab/Imaging: Test performed on Feb 16, 2021 13:50 Sodium 139 mmol/L Potassium 3.8 mmol/L Chloride 103 mmol/L CO2 26 mmol/L Anion Gap 13.8 BUN 10 mg/dL Creatinine 0.6 mg/dL Cr Clearance (Est) 179.7000 mL/min Glucose 85 mg/dL Osmolality - Calculated 286 mOsm/kg Calcium 8.6 mg/dL Protein, Total 6.5 g/dL Albumin 3.8 g/dL Globulin 2.7 g/dL Bilirubin, Total 0.4 mg/dL ALT (SGPT) 18 U/L AST (SGOT) 22 U/L Alkaline Phosphatase 64 IU/L WBC 5.8 10 3/uL RBC 3.79 10 6/uL HGB 11.9 g/dL HCT 37.1 % MCV 97.9 fL MCH 31.4 pg MCHC 32.1 g/dL RDW 14.6 % Platelet Count 268 10 3/cmm MPV 9.2 fL Neutrophils 3.88 10 3/uL Lymphocytes 1.2 10 3/uL Monocytes 0.6 10 3/uL Eosinophils 0.0 10 3/uL Basophils 0.0 10 3/uL Neutrophil % 67.2 % Lymphocyte % 20.3 % Monocyte % 11.1 % Eosinophil % 0.5 % Basophils % 0.7 % NRBC % 0 % Problem List: 1. Grade 3 infiltrating ductal carcinoma of the right breast, stage IA (pT1c, pN0, M0), ER/AK positive and HER-2 negative. Her tumor was high risk by Oncotype DX. 2. 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 She underwent left upper lobectomy on 11/03/2015. 3. Irritable bowel syndrome. 4. Nephrolithiasis. 5. Fibromyalgia. 6. Chronic anxiety. Problems Addressed with this Encounter and Plan: 1. Patient with grade 3 infiltrating ductal carcinoma of the right breast, stage IA (pT1c, pN0, M0), ER/AK positive and HER-2 negative. Her tumor was high risk by Oncotype DX with recurrence score 34 corresponding to a 22% 9-year risk of distant recurrence with hormonal therapy alone. The predicted benefit with addition of adjuvant chemotherapy was > 15%. She underwent ultrasound directed biopsy of the right breast on 08/13/2020 followed by right breast lumpectomy with axillary sentinel lymph node biopsy on 09/09/2020. In the setting of a high Oncotype DX score and with a predicted benefit of > 15%, she was given adjuvant chemotherapy with 4 cycles of cyclophosphamide/docetaxel, administered from 11/03/2020 though 01/19/2021. Side effects included some nausea, fatigue, and neutropenia. She has had some worsening of neuropathy, and she also has had some changes in her finger and toenails. Overall, she tolerated the chemotherapy pretty well. She will now be seeing Dr. Hernandez for radiation. I will see her in regard to her adjuvant endocrine therapy when the radiation is completed. 2. 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 She underwent left upper lobectomy on 11/03/2015. She has been followed on observation/expectant management. Thus far there has been no evidence of recurrence. Signed By: Mark Rollins M.D. <<Signature on File>>
--- NOTE | 2021-02-22 16:13 | ONCRAD TMN_ITS ---
Radiation Oncology Treatment Management Note Patient Name: Sammi Harrell Date of : 1950 Date of Service: 02/22/2021 Attending Physician: Philippe Hernandez M.D. Sammi Harrell is a 70 year-old white female diagnosed with a pathological stage IA (T1cN0), grade 3 invasive ductal carcinoma of the upper-inner quadrant of the right breast. A right partial mastectomy with sentinel lymph node biopsy was performed on September 09, 2020 by Steven Shipley M.D. The breast cancer profile was positive for estrogen receptor (99%) and progesterone receptor (39%) but negative for HER-2. The Oncotype DX Breast Recurrence Score was 34 indicating a greater than 15% average absolute chemotherapy benefit. Adjuvant chemotherapy (cyclophosphamide and docetaxel) was prescribed for 4 cycles every 21 days (November 03, 2020 through January 19, 2021). She has received 5.3 Gy of a prescribed 40 Gy delivered with a 3D conformal radiotherapy plan utilizing opposed tangential portal sagastume. An additional 10 Gy in 5 fractions will be administered to the surgical bed at the conclusion of the whole breast treatment as a consequence of the patient's high-grade tumor characteristics. Upon review of systems, she denied any breast complaints to radiotherapy. On physical examination, the patient weighed 288 lbs. Her temperature was 98.3 ???F with a blood pressure of 141/79 mmHg. Her pulse was 62 bpm and her respiratory rate was 20. There was no erythema within the treatment sagastume of the right breast. Continue hypofractionated right breast radiotherapy as prescribed. Signed by: Dr. Philippe Hernandez 03/08/2021 4:03:54 PM
--- NOTE | 2021-03-01 16:12 | ONCRAD TMN_ITS ---
Radiation Oncology Treatment Management Note Patient Name: Sammi Harrell Date of : 1950 Date of Service: 03/01/2021 Attending Physician: Philippe Hernandez M.D. Sammi Harrell is a 70 year-old white female diagnosed with a pathological stage IA (T1cN0), grade 3 invasive ductal carcinoma of the upper-inner quadrant of the right breast. A right partial mastectomy with sentinel lymph node biopsy was performed on September 09, 2020 by Steven Shipley M.D. The breast cancer profile was positive for estrogen receptor (99%) and progesterone receptor (39%) but negative for HER-2. The Oncotype DX Breast Recurrence Score was 34 indicating a greater than 15% average absolute chemotherapy benefit. Adjuvant chemotherapy (cyclophosphamide and docetaxel) was prescribed for 4 cycles every 21 days (November 03, 2020 through January 19, 2021). She has received 18.7 Gy of a prescribed 40 Gy delivered with a 3D conformal radiotherapy plan utilizing opposed tangential portal sagastume. An additional 10 Gy in 5 fractions will be administered to the surgical bed at the conclusion of the whole breast treatment as a consequence of the patient's high-grade tumor characteristics. Upon review of systems, she denied any breast complaints to radiotherapy. On physical examination, the patient weighed 286 lbs. Her temperature was 97.7 ???F with a blood pressure of 144/84 mmHg. Her pulse was 62 bpm and her respiratory rate was 18. There was no erythema within the treatment sagastume of the right breast. Continue hypofractionated right breast radiotherapy as planned. Signed by: Dr. Philippe Hernandez 03/08/2021 4:03:32 PM
--- NOTE | 2021-03-09 09:03 | ONCRAD TMN_ITS ---
Radiation Oncology Treatment Management Note Patient Name: Sammi Harrell Date of : 1950 Date of Service: 03/08/2021 Attending Physician: Philippe Hernandez M.D. Sammi Harrell is a 70 year-old white female diagnosed with a pathological stage IA (T1cN0), grade 3 invasive ductal carcinoma of the upper-inner quadrant of the right breast. A right partial mastectomy with sentinel lymph node biopsy was performed on September 09, 2020 by Steven Shipley M.D. The breast cancer profile was positive for estrogen receptor (99%) and progesterone receptor (39%) but negative for HER-2. The Oncotype DX Breast Recurrence Score was 34 indicating a greater than 15% average absolute chemotherapy benefit. Adjuvant chemotherapy (cyclophosphamide and docetaxel) was prescribed for 4 cycles every 21 days (November 03, 2020 through January 19, 2021). She has received 32 Gy of a prescribed 40 Gy delivered with a 3D conformal radiotherapy plan utilizing opposed tangential portal sagastume. An additional 10 Gy in 5 fractions will be administered to the surgical bed at the conclusion of the whole breast treatment as a consequence of the patient's high-grade tumor characteristics. Upon review of systems, she denied any breast complaints to radiotherapy. On physical examination, the patient weighed 281 lbs. Her temperature was 97.3 ???F with a blood pressure of 132/81 mmHg. Her pulse was 68 bpm and her respiratory rate was 20. There was no erythema within the treatment sagastume of the right breast. Continue hypofractionated right breast radiotherapy as prescribed. Signed by: Dr. Philippe Hernandez 03/09/2021 9:01:38 AM
== END 2021-03-09 23:59 | disposition home or self-care (01) ==
LOC: ONCMED 05:52
PROVIDERS: Internal Medicine Medical Oncology; PCP Nurse Practitioner Family; Visit Provider Radiology Radiation Oncology
DX: Z51.0 Encounter for antineoplastic radiation therapy (principal); C50.211 Malignant neoplasm of upper-inner quadrant of right female breast; Z17.0 Estrogen receptor positive status [ER+]; C78.02 Secondary malignant neoplasm of left lung; K58.9 Irritable bowel syndrome, unspecified; N20.0 Calculus of kidney; M79.7 Fibromyalgia; F41.9 Anxiety disorder, unspecified; Z79.899 Other long term (current) drug therapy; Z79.811 Long term (current) use of aromatase inhibitors; Z90.11 Acquired absence of right breast and nipple
CPT/HCPCS: 36415; 77280; 77295; 77300; 77307; 77334; 77336; 77387; 77412; 80053; 85025; 99205; 99214

== ENCOUNTER 2021-03-25 11:22 | Outpatient (CLI) | payer MEDICARE, BC, SELFPAY ==
--- NOTE | 2021-03-25 11:33 | XR_ITS ---
WS: [id number] Bone mineral density performed on a [place], 03/25/2021 Clinical data: ASYMPTOMATIC MENOPAUSAL STATE Findings: The first 4 lumbar vertebral bodies demonstrated the bone mineral density of 1.494 g/cm2 for a young adult T score of 2.6. Measurement of the left hip reveals a bone mineral density of 1.076 g/cm2 with a young adult T score of 0.5. Measurement of the right hip reveals the bone mineral density of 1.130 g/cm2 for young adult T score of 1.0. XR/XR DEXA axial skeleton* [id number] Impression: The bone density of the lumbar spine and both hips is normal.
== END 2021-03-25 11:23 | disposition home or self-care (01) ==
PROVIDERS: PCP Nurse Practitioner Family; Visit Provider Internal Medicine Medical Oncology
DX: Z78.0 Asymptomatic menopausal state (principal)
CPT/HCPCS: 77080

== ENCOUNTER 2021-03-31 05:45 | Outpatient (RCR) | payer MEDICARE, BC, SELFPAY ==
--- NOTE | 2021-03-16 09:44 | ONCRAD TMN_ITS ---
Radiation Oncology Treatment Management Note Patient Name: Sammi Harrell Date of : 1950 Date of Service: 03/15/2021 Attending Physician: Philippe Hernandez M.D. Sammi Harrell is a 70 year-old white female diagnosed with a pathological stage IA (T1cN0), grade 3 invasive ductal carcinoma of the upper-inner quadrant of the right breast. A right partial mastectomy with sentinel lymph node biopsy was performed on September 09, 2020 by Steven Shipley M.D. The breast cancer profile was positive for estrogen receptor (99%) and progesterone receptor (39%) but negative for HER-2. The Oncotype DX Breast Recurrence Score was 34 indicating a greater than 15% average absolute chemotherapy benefit. Adjuvant chemotherapy (cyclophosphamide and docetaxel) was prescribed for 4 cycles every 21 days (November 03, 2020 through January 19, 2021). She has received 42 Gy of a prescribed 50 Gy delivered with a 3D conformal radiotherapy plan utilizing reduced opposed tangential portal sagastume. Upon review of systems, she denied any breast complaints to radiotherapy. On physical examination, the patient weighed 284 lbs. Her temperature was 97.8 ???F with a blood pressure of 150/72 mmHg. Her pulse was 62 bpm and her respiratory rate was 18. There was no erythema within the treatment sagastume of the right breast. Continue right breast radiotherapy as planned. Signed by: Dr. Philippe Hernandez 03/16/2021 9:43:31 AM
--- NOTE | 2021-03-28 16:10 | ONCRAD EPV_ITS ---
[facility] Established Patient Visit Patient: Julio Cesar Chapa [id number] : 1950> Age: 70> Sex: Female> Dictated by: Dr. Jhonny Harris Date of Service: 03/28/2021 Referring Physician(s) : Ronda Yepez Diagnosis: C50.211 - Malignant neoplasm of upper-inner quadrant of right female breast, Diagnosed 08/19/2020 (Active) Stage IA, T1c, pN0, M0, G3, HER2 Neg, ER Pos, ND P C7A.090 - Malignant carcinoid tumor of the bronchus and lung, Diagnosed 05/29/2016 (Active) Stage IIA, T1b, N1, M0 Malignant carcinoid. This is a 70 year-old woman malignant carcinoid involving the left lung, stage IIA (T1b, N1, M0). She had presented with new onset of cough. A chest CT on 09/30/2014 showed a concerning left upper lobe lesion. Further evaluation with PET/CT on 10/09/2015 revealed a 2.3 cm left upper lobe mass in the evelio-hilar region with SUV of 4.8, without regional lymphadenopathy. Bronchoscopy on 10/15/2015 was non-diagnostic. On 11/03/15 she underwent a formal left upper lobectomy by Dr. Short. Her surgical pathology revealed a 2.5 cm centimeter atypical carcinoid with spindle cell type. Ki-67 index was with low proliferative rate. One hilar lymph node was involved by direct extension from the main tumor mass. An additional 9 lymph nodes were reported to be benign. Thus, her disease was pathologic stage IIA (T1b, N1, M0). She was seen by Dr. López on 11/24/2015. Expectant management was recommended. Surveillance chest CT scan performed on 05/26/2016 showed a new left anterolateral lower lobe 6-7 mm non calcified nodule, felt to be non specific. There was stable appearance of a right lower lobe subpleural nodule. There was new left and similar right lower lung zone scarring or subsegmental atelectasis. A repeat CT scan performed on 08/25/2016 showed no recurrent mass or adenopathy. There were multiple bilateral subcentimeter pulmonary/ subpleural nodules which had been present since 09/30/2015 and changed minimally in size, probably due to volume averaging. These nodules were all negative on PET/CT from 10/09/2015. With those findings she continued on observation/expectant management. Her subsequent surveillance CT scans in 2017, 2018, and 2018 showed no evidence of disease progression. Her surveillance CT scans of the chest, abdomen, and pelvis on 08/16/2020 showed no findings of recurrent or metastatic neoplasm. There were no changes compared to the August 2019 study. Her diagnostic mammogram on 08/13/2020 showed an irregular focal asymmetry in the upper inner quadrant of the right breast measuring 1.3 cm. Ultrasound showed an irregular hypoechoic mass with indistinct margins at the 1:00 axis of the right breast measuring 0.5 x 0.4 x 0.4 cm. The findings were BI-RADS 4, suspicious. She underwent ultrasound directed biopsy on 08/13/2020. Pathology showed grade 2 invasive ductal carcinoma. There was associated high-grade ductal carcinoma in situ. The breast prognostic profile showed ER positive at 99% and ND positive at 39%. Tumor was negative for overexpression of HER-2/emelina, 1+ by IHC. On 09/09/2020 she underwent right breast lumpectomy with axillary sentinel lymph node biopsy. Pathology on the lumpectomy showed grade 3 invasive ductal carcinoma measuring 1.6 cm in greatest dimension. The margins were free of tumor, with the closest being the deep margin at 2 mm. There was no involvement in 1 sentinel lymph node. Her Oncotype DX showed recurrence score of 34, corresponding to 22% risk of distant recurrence at 9 years with adjuvant hormonal therapy. The predicted benefit with addition of adjuvant chemotherapy was > 15%. With that finding she was recommended to undergo adjuvant chemotherapy with 4 cycles of cyclophosphamide/docetaxel. Her other medical illnesses include irritable bowel syndrome, nephrolithiasis, fibromyalgia, and chronic anxiety. She has a history of colonic polyps. She is a nonsmoker. INTERIM HISTORY: She began cycle 1 of adjuvant chemotherapy on 11/03/2020. She tolerated it well and she continued with cycle 2 on 11/24/2020, with cycle 3 on 12/15/2020, and with cycle 4 on 01/19/2021. She is seen for a follow-up visit. She describes her self is weary, but her energy is picking up. She is able to do light work. ECOG score is 1. Her appetite is coming back. Her weight is basically stable. She has not had fever. She occasionally wakes up sweaty. She has been having some tenderness and itching in the right breast, mainly in the nipple area. She has not had sore mouth or throat. She has some mild exertional dyspnea. She says she always has cough. She does not complain of chest pain. She is not having nausea. Her acid reflux is adequately managed with Protonix. She has had a lot of constipation, which is unusual for her, as she previously had chronic diarrhea. Bladder function has been okay. She says her joints have been achy, especially the right ankle. She does not complain of headache. She occasionally has dizziness. She has numbness/tingling in her feet, which has gotten worse on the chemotherapy. She also has tender finger and toenails, especially her big toes. Radiotherapy to Date: Course: Breast 2020,Treatment Site: Breast Ca,Ref. ID: RT breast 40Gy,Energy: 15X,Dose/Fx (cGy): 266.7,#Fx: 15 / 15,Dose Correction (cGy): 0,Total Dose (cGy): 4,000,Start Date: 02/21/2021,End Date: 03/11/2021,Elapsed Days: 18 Treatment Site: [id number], Ref. ID: [id number], Energy: 15X, Dose/Fx (cGy): 200, #Fx: 5 / 5, Dose Correction (cGy): 0, Total Dose (cGy): 1,000, Start Date: 03/15/2021, End Date: 03/21/2021, Elapsed Days: 6 Current History: Current Medications: Albuterol Sulfate, aloxi, aLPRAZolam, cyclophosphamide, dexamethasone, dexamethasone Sodium Phosphate, diphenhydrAMINE HCl, dOCEtaxel, famotidine, hydrocodone-Acetaminophen, imodium A-D, lomotil, lORazepam, pantoprazole Sodium, pantoprazole Sodium, prochlorperazine Maleate, traZODone HCl. Allergies: macrobid and clindamycin. Current Complaints / Review of Systems: . Vital Signs: Performed on 03/28/2021 3:15 PM BMI - 41.113 kg/m2 (high), Height - 69.00 in, Weight - 278.4 lbs, Temperature - 97.8 f, Pulse - 62, Respiration - 16, O2 Sat - 97 %, Pain - 0 and BP - 118/ 67 mm(hg). Physical Exam: General: Alert and oriented x 3. No acute distress. HEENT: Normocephalic, atraumatic. Extraocular Movements Intact: Pupils Equal, Round, Reactive to Light and Accommodation: Sclerae anicteric. Oral cavity is clear without lesions, masses or ulcers. NECK: Supple without supraclavicular or jugular lymphadenopathy. LUNGS: Clear to auscultation bilaterally without rales, rhonchi or wheeze. HEART: Regular rate and rhythm, normal S1 and S2 without murmur, gallop or rub. MUSCULOSKELETAL: No tenderness or percussion pain over the axial skeleton, scapulae or pelvis. ABDOMEN: Soft, nontender, nondistended without masses or organomegaly. Bowell sounds are present. EXTREMITIES: No peripheral edema is identified. Limited motor and sensory examination are grossly intact and symmetric bilaterally. NEUROLOGIC: Cranial nerves II ???XII are grossly intact. Normal sensation, strength 5/5 in all extremities, normal gait, no ataxia. Performance Status: 0 - Fully active, able to carry on all predisease activities without restrictions. (ECOG) Lab: None pending. Test performed on 02/16/2021 1:50 PM RBC - 3.79 10 6/ul (low), Cr Clearance (Est) - 179.7000 ml/min (high) and Protein, Total - 6.5 g/dl (low). Pathology: Primary, c50.211 - malignant neoplasm of upper-inner quadrant of right female breast, Diagnosed 08/19/2020 (active) stage ia, t1c, pn0, m0, g3, her2 neg, er pos, pr p and Primary, c7a.090 - malignant carcinoid tumor of the bronchus and lung, Diagnosed 05/29/2016 (active) stage iia, t1b, n1, m0. Imaging: See HPI Impression: She recently completed radiation, receiving a hypofractionated course to the right breast. She has noticed itching and mild discomfort in the right lateral inframammary area. She is concerned about the possibility of infection. She was cleansing the area aggressively until yesterday. She has started AMD diaper preparation and that seems to have helped. Exam reveals the breast to be normal in appearance except in the inframammary area. There is no significant edema, tenderness, or erythema of the breast itself. In the inframammary area, she has accelerated dry desquamation. However, she has an excellent layer of new skin forming beneath the areas of dry desquamation. She has 1 few millimeter area that is erythematous, but she does not have any active infection at all. I I told her she could continue the A&E diaper preparation. She will cleanse the area gently twice daily. I told her she could apply Neosporin to the area of erythema if desired, although I am not sure it needs it. She will will call in if the skin reaction does not improve over the next 5 days or so. Signed by: 03/28/2021 4:09:13 PM <<Signature on File>> Time spent with patient: CPT Code: CPT Code:
[2021-03-31 09:13] LABS: Basophils % 0.4 %; Eosinophils % 0.2 %; Hemoglobin 13.3 g/dL (11.5-15.3); Lymphocytes # 0.5 10^3/uL (0.8-4.8); Lymphocytes % 11.8 %; Mean Corpuscular HGB Conc 33.3 g/dL (30.0-36.0); Mean Corpuscular Hemoglobin 31.7 pg (28.0-34.0); Mean Corpuscular Volume 95.2 fL (81-99); Mean Platelet Volume 8.9 fL (7.4-10.4); Monocytes # 0.4 10^3/uL (0.2-0.9); Monocytes % 9.6 %; Neutrophils # 3.54 10^3/uL (1.8-7.7); Neutrophils % 77.8 %; Nucleated Red Blood Cells % 0 %; Platelet Count 190 10^3/cmm (130-400); Red Cell Distribution Width 13.2 % (12.1-15.1); White Blood Count 4.6 10^3/uL (4.0-10.0)
[2021-03-31 09:35] LABS: Alanine Aminotransferase 22 U/L (0-33); Albumin Level 3.8 g/dL (3.5-5.2); Alkaline Phosphatase 84 IU/L (35-105); Anion Gap 12.1 (5-19); Aspartate Amino Transferase 22 U/L (0-32); Blood Urea Nitrogen 11 mg/dL (8-23); Calcium 8.5 mg/dL (8.5-10.5); Carbon Dioxide 27 mmol/L (22-29); Chloride 107 mmol/L (98-107); Globulin 2.6 g/dL (1.3-4.6); Glucose 109 mg/dL (65-115); Osmolality Calculated 294 mOsm/kg (285-295); Potassium 4.1 mmol/L (3.5-5.1); Sodium 142 mmol/L (136-145); Total Bilirubin 0.3 mg/dL (0.15-1.2); Total Protein 6.4 g/dL (6.6-8.7)
[2021-03-31 10:01] LABS: 25 Hydroxy Vitamin D 21 ng/mL (30-100)
--- NOTE | 2021-03-31 14:30 | ONC FU_ITS ---
Dr. Rollins Patient Follow-Up Note Patient: Sammi Harrell Unit #: [id number]: 1950 Dicatated By: Mark Rollins M.D.Date of Visit:Mar 31, 2021 Onc Med Follow-up/Prog Note Chief Complaint: Breast cancer and malignant carcinoid. History of Present Illness: This is a 70 year-old woman whom I have followed for malignant carcinoid involving the left lung, stage IIA (T1b, N1, M0). In August 2020 she was found to have grade 3 invasive ductal carcinoma of the right breast, stage IA (T1c, N0, M0), ER/WV positive and HER-2/emelina negative. Her tumor was higher risk by Oncotype DX. Her diagnostic mammogram on 08/13/2020 showed an irregular focal asymmetry in the upper inner quadrant of the right breast measuring 1.3 cm. Ultrasound showed an irregular hypoechoic mass with indistinct margins at the 1:00 axis of the right breast measuring 0.5 x 0.4 x 0.4 cm. The findings were BI-RADS 4, suspicious. She underwent ultrasound directed biopsy on 08/13/2020. Pathology showed grade 2 invasive ductal carcinoma. There was associated high-grade ductal carcinoma in situ. The breast prognostic profile showed ER positive at 99% and WV positive at 39%. Tumor was negative for overexpression of HER-2/emelina, 1+ by IHC. On 09/09/2020 she underwent right breast lumpectomy with axillary sentinel lymph node biopsy. Pathology on the lumpectomy showed grade 3 invasive ductal carcinoma measuring 1.6 cm in greatest dimension. The margins were free of tumor, with the closest being the deep margin at 2 mm. There was no involvement in 1 sentinel lymph node. Her Oncotype DX showed recurrence score of 34, corresponding to 22% risk of distant recurrence at 9 years with adjuvant hormonal therapy. The predicted benefit with addition of adjuvant chemotherapy was > 15%. With that finding she was recommended to undergo adjuvant chemotherapy with 4 cycles of cyclophosphamide/docetaxel. She began cycle 1 of adjuvant cyclophosphamide/docetaxel on 11/03/2020. She tolerated it well and she continued with cycle 2 on 11/24/2020, with cycle 3 on 12/15/2020, and with cycle 4 on 01/19/2021. She had significant fatigue following completion of the chemotherapy and she did report some worsening of her neuropathy. She was then seen by Dr. Hernandez for radiation oncology consultation. She began radiation to the right breast on 02/21/2021. She completed treatment on 03/21/2021 to a total dose of 5000 cGy administered in 20 fractions. She has additional history malignant carcinoid of the left lung. She had presented with cough and her chest CT in September 2015 showed a 2 cm lesion in the area of the left hilum which was concerning for malignancy. Further evaluation with PET/CT on 10/09/2015 revealed a 2.3 cm left upper lobe mass in the evelio-hilar region with SUV of 4.8, without regional lymphadenopathy. Bronchoscopy on 10/15/2015 was non-diagnostic. On 11/03/15 she underwent a formal left upper lobectomy by Dr. Short. Her surgical pathology revealed a 2.5 cm centimeter atypical carcinoid with spindle cell type. Ki-67 index was with low proliferative rate. One hilar lymph node was involved by direct extension from the main tumor mass. An additional 9 lymph nodes were reported to be benign. Thus, her disease was pathologic stage IIA (T1b, N1, M0). She was seen by Dr. López on 11/24/2015. Expectant management was recommended. Surveillance chest CT scan performed on 05/26/2016 showed a new left anterolateral lower lobe 6-7 mm non calcified nodule, felt to be non specific. There was stable appearance of a right lower lobe subpleural nodule. There was new left and similar right lower lung zone scarring or subsegmental atelectasis. A repeat CT scan performed on 08/25/2016 showed no recurrent mass or adenopathy. There were multiple bilateral subcentimeter pulmonary/ subpleural nodules which had been present since 09/30/2015 and changed minimally in size, probably due to volume averaging. These nodules were all negative on PET/CT from 10/09/2015. With those findings she continued on observation/expectant management. Her subsequent surveillance CT scans in 2016, 2017, and 2018 showed no evidence of disease progression. Her surveillance CT scans of the chest, abdomen, and pelvis on 08/16/2020 showed no findings of recurrent or metastatic neoplasm. There were no changes compared to the August 2019 study. Her other medical illnesses include irritable bowel syndrome, nephrolithiasis, fibromyalgia, and chronic anxiety. She has a history of colonic polyps. She is a nonsmoker. INTERIM HISTORY: She is seen for a follow-up visit. She tolerated the radiation very well, but she complains that she has not been able to get over the fatigue that she experienced during her adjuvant chemotherapy. Her legs, in particular, are still weak. She says the neuropathy in her feet is 10 times worse now than it was before treatment. She is still able to do light work. Her ECOG score is 1. She has good appetite. She has no fever, night sweats, or hot flashes. She has cough, but that is chronic. Her breathing is sometimes heavy. She does not complain of chest pain. She has had some constipation, but lately that has been doing a little better. She has no other GI or complaints. She has some arthritis pain, which is unchanged. She has occasional headache in the occipital area. She says it feels like a pinched nerve. She says her balance is not good. Medications: Albuterol Sulfate 1 ((2.5 mg/3ml) 0.083%) Nebulization solution Inhalation four times a day PRN, ALPRAZolam 0.25 mg (of 0.5 mg) Tablet Oral PRN, Hydrocodone-Acetaminophen 1 Tablet (of 5-325 mg) Oral q 6 hours PRN, Imodium A-D Capsule Oral PRN, Lomotil Tablet Oral PRN, Pantoprazole Sodium 1 (40 mg) Tablet, enteric coated Oral daily, TraZODone HCl 100 mg (of 50 mg) Tablet Oral daily Allergies: clindamycin and macrobid. Vital Signs: Performed on Mar 31, 2021 11:51 Height - 69.00 in Weight - 279.6 lbs (HIGH) BSA - 2.38 sq.m BMI - 41.29 (HIGH) Temperature - 98.4 F Pulse - 58 /min (LOW) Respiration - 18 /min BP - 151/91 mm(hg) (HIGH) O2 Sat - 98 % Pain - 2 Fatigue - 5 Physical Examination: Constitutional - She looks pretty good generally, Eyes - Sclerae nonicteric. Conjunctivae clear, ENMT - No lesions noted in the oral cavity, Hematologic/Lymphatic - No cervical, clavicular, or axillary adenopathy, Respiratory - Lungs are clear, Cardiovascular - Heart rhythm is regular. There is no murmur, gallop, or rub noted, Abdomen - Distended. Liver and spleen are not enlarged. There is no abdominal mass or ascites noted and there is no inguinal adenopathy, Extremities - Mild pedal edema, Neurologic - No focal neurologic deficits noted. Lab/Imaging: Test performed on Mar 31, 2021 08:50 Sodium 142 mmol/L Vitamin D (25-Hydroxy), Total 21 ng/mL Potassium 4.1 mmol/L Chloride 107 mmol/L CO2 27 mmol/L Anion Gap 12.1 BUN 11 mg/dL Creatinine 0.6 mg/dL Cr Clearance (Est) 179.7000 mL/min Glucose 109 mg/dL Osmolality - Calculated 294 mOsm/kg Calcium 8.5 mg/dL Protein, Total 6.4 g/dL Albumin 3.8 g/dL Globulin 2.6 g/dL Bilirubin, Total 0.3 mg/dL ALT (SGPT) 22 U/L AST (SGOT) 22 U/L Alkaline Phosphatase 84 IU/L WBC 4.6 10 3/uL RBC 4.20 10 6/uL HGB 13.3 g/dL HCT 40.0 % MCV 95.2 fL MCH 31.7 pg MCHC 33.3 g/dL RDW 13.2 % Platelet Count 190 10 3/cmm MPV 8.9 fL Neutrophils 3.54 10 3/uL Lymphocytes 0.5 10 3/uL Monocytes 0.4 10 3/uL Eosinophils 0.0 10 3/uL Basophils 0.0 10 3/uL Neutrophil % 77.8 % Lymphocyte % 11.8 % Monocyte % 9.6 % Eosinophil % 0.2 % Basophils % 0.4 % NRBC % 0 % Problem List: 1. Grade 3 infiltrating ductal carcinoma of the right breast, stage IA (pT1c, pN0, M0), ER/WV positive and HER-2 negative. Her tumor was high risk by Oncotype DX. 2. 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 She underwent left upper lobectomy on 11/03/2015. 3. Irritable bowel syndrome. 4. Nephrolithiasis. 5. Fibromyalgia. 6. Chronic anxiety. Problems Addressed with this Encounter and Plan: 1. Patient with grade 3 infiltrating ductal carcinoma of the right breast, stage IA (pT1c, pN0, M0), ER/WV positive and HER-2 negative. Her tumor was high risk by Oncotype DX with recurrence score 34 corresponding to a 22% 9-year risk of distant recurrence with hormonal therapy alone. The predicted benefit with addition of adjuvant chemotherapy was > 15%. She underwent ultrasound directed biopsy of the right breast on 08/13/2020 followed by right breast lumpectomy with axillary sentinel lymph node biopsy on 09/09/2020. In the setting of a high Oncotype DX score and with a predicted benefit of > 15%, she was given adjuvant chemotherapy with 4 cycles of cyclophosphamide/docetaxel, administered from 11/03/2020 though 01/19/2021. Side effects included some nausea, fatigue, and neutropenia. She also had worsening of neuropathy, and she had some changes in her finger and toenails. She then began radiation to the right breast on 02/21/2021. She completed treatment on 03/21/2021 to a total dose of 5000 cGy administered in 20 fractions. At this point she continues to have significant fatigue and leg weakness and she also has had further worsening of the neuropathy symptoms in her feet. This is all very likely to be chemotherapy related. As such, I do want to give her some additional time for recovery before starting her adjuvant endocrine therapy. I reviewed those options which would include treatment with an aromatase inhibitor versus tamoxifen. I also reviewed expected side effects which may include osteoporosis and/or joint pain with aromatase inhibitors and thromboembolism with a small risk of endometrial cancer with tamoxifen. At this point I will just schedule her for a follow-up visit in 1 month. If she is feeling better, I will plan then to have her start adjuvant hormonal therapy with anastrozole 1 mg daily. In the meantime, she will start a B complex vitamin daily and vitamin D3 1000 units daily. 2. 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 She underwent left upper lobectomy on 11/03/2015. She has been followed on observation/expectant management. Thus far there has been no evidence of recurrence. Signed By: Mark Rollins M.D. <<Signature on File>>
== END 2021-04-09 23:59 | disposition home or self-care (01) ==
LOC: ONCMED 05:45
PROVIDERS: PCP Nurse Practitioner Family; Visit Provider Internal Medicine Medical Oncology
DX: Z51.0 Encounter for antineoplastic radiation therapy (principal); C50.211 Malignant neoplasm of upper-inner quadrant of right female breast; Z17.0 Estrogen receptor positive status [ER+]; K58.9 Irritable bowel syndrome, unspecified; N20.0 Calculus of kidney; M79.7 Fibromyalgia; F41.9 Anxiety disorder, unspecified; Z85.118 Personal history of other malignant neoplasm of bronchus and lung; Z79.899 Other long term (current) drug therapy; Z92.21 Personal history of antineoplastic chemotherapy
CPT/HCPCS: 36415; 77014; 77336; 77387; 77412; 80053; 82306; 85025; 99024; 99214

== ENCOUNTER 2021-05-09 05:29 | Outpatient (RCR) | payer MEDICARE, BC, SELFPAY ==
--- NOTE | 2021-04-22 10:51 | ONCRAD EPV_ITS ---
Radiation Oncology Follow-Up Note Patient Name: Sammi Harrell Date of : 1950 Date of Service: 04/22/2021 Attending Physician: Philippe Hernandez M.D. Sammi Harrell returned to my office this morning for a routinely scheduled post-radiotherapy appointment. She completed adjuvant right breast radiotherapy in March for the post-operative management of a pathological stage IA (T1cN0), grade 3, invasive ductal carcinoma of the upper-inner quadrant of the right breast. A right partial mastectomy with sentinel lymph node biopsy was performed on September 09, 2020 by Steven Shipley M.D. The breast cancer profile was positive for estrogen receptor (99%) and progesterone receptor (39%) but negative for HER-2. The Oncotype DX Breast Recurrence Score was 34 indicating a greater than 15% average absolute chemotherapy benefit. Adjuvant chemotherapy (cyclophosphamide and docetaxel) was prescribed for 4 cycles every 21 days (November 03, 2020 through January 19, 2021). Daily radiotherapy was administered between the dates of February 21, 2021 through March 21, 2021. A prescribed dose of 50 Gy was delivered in 20 fractions encompassing 29 elapsed days. On review of systems, she did not report any breast complaints. On physical examination, she weighed 281 lbs. Her temperature was 97.5???F and the blood pressure was 129/58 mmHg. The pulse was 56 bpm and her respiratory rate was 18 breaths/min. Examination of the right breast identified no erythema nor desquamation. In summary, Ms. Harrell returned for a routine post-radiotherapy follow-up. She has no residual sequelae from radiotherapy and will continue follow-up with her medical oncologist as scheduled. Signed by: Dr. Philippe Hernandez 04/22/2021 10:49:08 AM
[2021-05-09 12:56] LABS: Basophils % 0.3 %; Eosinophils # 0.1 10^3/uL (0.0-0.8); Eosinophils % 0.7 %; Hematocrit 42.8 % (37.0-47.0); Hemoglobin 13.9 g/dL (11.5-15.3); Lymphocytes # 1.2 10^3/uL (0.8-4.8); Lymphocytes % 17.6 %; Mean Corpuscular HGB Conc 32.5 g/dL (30.0-36.0); Mean Corpuscular Volume 95.5 fl (81-99); Mean Platelet Volume 8.7 fL (7.4-10.4); Monocytes # 0.6 10^3/uL (0.2-0.9); Neutrophils # 4.91 10^3/uL (1.8-7.7); Neutrophils % 72.1 %; Nucleated Red Blood Cells % 0 %; Platelet Count 241 10^3/cmm (130-400); Red Blood Count 4.48 10^6/uL (4.1-5.3); Red Cell Distribution Width 13.6 % (12.1-15.1); White Blood Count 6.8 10^3/uL (4.0-10.0)
[2021-05-09 13:17] LABS: Alanine Aminotransferase 19 U/L (0-33); Albumin Level 4.1 g/dL (3.5-5.2); Alkaline Phosphatase 99 IU/L (35-105); Aspartate Amino Transferase 20 U/L (0-32); Blood Urea Nitrogen 11 mg/dL (8-23); Calcium 9.4 mg/dL (8.5-10.5); Carbon Dioxide 28 mmol/L (22-29); Chloride 100 mmol/L (98-107); Globulin 3.4 g/dL (1.3-4.6); Glucose 96 mg/dL (65-115); Osmolality Calculated 281 mOsm/kg (285-295); Sodium 136 mmol/L (136-145); Total Bilirubin 0.3 mg/dL (0.15-1.2); Total Protein 7.5 g/dL (6.6-8.7)
[2021-05-09 15:15] LABS: 25 Hydroxy Vitamin D 28 ng/mL (30-100)
--- NOTE | 2021-05-13 17:14 | ONC FU_ITS ---
Dr. Rollins Patient Follow-Up Note Patient: Sammi Harrell Unit #: [id number]: 1950 Dicatated By: Mark Rollins M.D.Date of Visit:May 09, 2021 Onc Med Follow-up/Prog Note Chief Complaint: Breast cancer and malignant carcinoid. History of Present Illness: This is a 70 year-old woman whom I have followed for malignant carcinoid involving the left lung, stage IIA (T1b, N1, M0). 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 Her tumor was higher risk by Oncotype DX. Her diagnostic mammogram on 08/13/2020 showed an irregular focal asymmetry in the upper inner quadrant of the right breast measuring 1.3 cm. Ultrasound showed an irregular hypoechoic mass with indistinct margins at the 1:00 axis of the right breast measuring 0.5 x 0.4 x 0.4 cm. The findings were BI-RADS 4, suspicious. She underwent ultrasound directed biopsy on 08/13/2020. Pathology showed grade 2 invasive ductal carcinoma. There was associated high-grade ductal carcinoma in situ. The breast prognostic profile showed ER positive at 99% and CA positive at 39%. Tumor was negative for overexpression of HER-2/emelina, 1+ by IHC. On 09/09/2020 she underwent right breast lumpectomy with axillary sentinel lymph node biopsy. Pathology on the lumpectomy showed grade 3 invasive ductal carcinoma measuring 1.6 cm in greatest dimension. The margins were free of tumor, with the closest being the deep margin at 2 mm. There was no involvement in 1 sentinel lymph node. Her Oncotype DX showed recurrence score of 34, corresponding to 22% risk of distant recurrence at 9 years with adjuvant hormonal therapy. The predicted benefit with addition of adjuvant chemotherapy was > 15%. With that finding she was recommended to undergo adjuvant chemotherapy with 4 cycles of cyclophosphamide/docetaxel. She began cycle 1 of adjuvant cyclophosphamide/docetaxel on 11/03/2020. She tolerated it well and she continued with cycle 2 on 11/24/2020, with cycle 3 on 12/15/2020, and with cycle 4 on 01/19/2021. She had significant fatigue following completion of the chemotherapy and she did report some worsening of her neuropathy. She was then seen by Dr. Hernandez for radiation oncology consultation. She began radiation to the right breast on 02/21/2021. She completed treatment on 03/21/2021 to a total dose of 5000 cGy administered in 20 fractions. She has additional history malignant carcinoid of the left lung. She had presented with cough and her chest CT in September 2015 showed a 2 cm lesion in the area of the left hilum which was concerning for malignancy. Further evaluation with PET/CT on 10/09/2015 revealed a 2.3 cm left upper lobe mass in the evelio-hilar region with SUV of 4.8, without regional lymphadenopathy. Bronchoscopy on 10/15/2015 was non-diagnostic. On 11/03/15 she underwent a formal left upper lobectomy by Dr. Short. Her surgical pathology revealed a 2.5 cm centimeter atypical carcinoid with spindle cell type. Ki-67 index was with low proliferative rate. One hilar lymph node was involved by direct extension from the main tumor mass. An additional 9 lymph nodes were reported to be benign. Thus, her disease was pathologic stage IIA (T1b, N1, M0). She was seen by Dr. López on 11/24/2015. Expectant management was recommended. Surveillance chest CT scan performed on 05/26/2016 showed a new left anterolateral lower lobe 6-7 mm non calcified nodule, felt to be non specific. There was stable appearance of a right lower lobe subpleural nodule. There was new left and similar right lower lung zone scarring or subsegmental atelectasis. A repeat CT scan performed on 08/25/2016 showed no recurrent mass or adenopathy. There were multiple bilateral subcentimeter pulmonary/ subpleural nodules which had been present since 09/30/2015 and changed minimally in size, probably due to volume averaging. These nodules were all negative on PET/CT from 10/09/2015. With those findings she continued on observation/expectant management. Her subsequent surveillance CT scans in 2016, 2017, and 2018 showed no evidence of disease progression. Her surveillance CT scans of the chest, abdomen, and pelvis on 08/16/2020 showed no findings of recurrent or metastatic neoplasm. There were no changes compared to the August 2019 study. Her other medical illnesses include irritable bowel syndrome, nephrolithiasis, fibromyalgia, and chronic anxiety. She has a history of colonic polyps. She is a nonsmoker. INTERIM HISTORY: She is seen for a follow-up visit. I had initially put off starting her adjuvant endocrine therapy because she had become significantly fatigued following her breast radiation. She is feeling much better now, though she still gets out of breath and she still has some fatigue. She is working 3 days a week now. Her ECOG score is 1. She has good appetite. She has no fever, night sweats, or hot flashes. She says she has been kind of a funk. She had been on Wellbutrin in the past for depression, and she is wondering if she may need to start taking it again. She has been having some cough and she also has shortness of breath, attributable to allergies. She does not complain of chest pain. She has no GI/ complaints other than some constipation. She has fibromyalgia and she has arthritis pain. She has some significant nail changes following her chemotherapy. She still has some neuropathy in her feet, but her hands are better. Medications: Albuterol Sulfate 1 ((2.5 mg/3ml) 0.083%) Nebulization solution Inhalation four times a day PRN, ALPRAZolam 0.25 mg (of 0.5 mg) Tablet Oral PRN, Hydrocodone-Acetaminophen 1 Tablet (of 5-325 mg) Oral q 6 hours PRN, Imodium A-D Capsule Oral PRN, Lomotil Tablet Oral PRN, Pantoprazole Sodium 1 (40 mg) Tablet, enteric coated Oral daily, TraZODone HCl 100 mg (of 50 mg) Tablet Oral daily Allergies: clindamycin and macrobid. Vital Signs: Performed on May 09, 2021 14:55 Height - 69.00 in Weight - 275.6 lbs (LOW) BSA - 2.37 sq.m BMI - 40.70 (HIGH) Temperature - 98.1 F (LOW) Pulse - 75 /min Respiration - 17 /min BP - 134/84 mm(hg) O2 Sat - 97 % Pain - 3 Physical Examination: Constitutional - She looks pretty good generally, Eyes - Sclerae nonicteric. Conjunctivae clear, ENMT - No lesions noted in the oral cavity, Hematologic/Lymphatic - No cervical, clavicular, or axillary adenopathy, Respiratory - Lungs are clear, Cardiovascular - Heart rhythm is regular. There is no murmur, gallop, or rub noted, Abdomen - Distended. Liver and spleen are not enlarged. There is no abdominal mass or ascites noted and there is no inguinal adenopathy, Extremities - Slight edema, Neurologic - No focal neurologic deficits noted. Lab/Imaging: Test performed on May 09, 2021 12:27 Sodium 136 mmol/L Vitamin D (25-Hydroxy), Total 28 ng/mL Potassium 4.0 mmol/L Chloride 100 mmol/L CO2 28 mmol/L Anion Gap 12.0 BUN 11 mg/dL Creatinine 0.7 mg/dL Cr Clearance (Est) 154.0300 mL/min Glucose 96 mg/dL Osmolality - Calculated 281 mOsm/kg Calcium 9.4 mg/dL Protein, Total 7.5 g/dL Albumin 4.1 g/dL Globulin 3.4 g/dL Bilirubin, Total 0.3 mg/dL ALT (SGPT) 19 U/L AST (SGOT) 20 U/L Alkaline Phosphatase 99 IU/L WBC 6.8 10 3/uL RBC 4.48 10 6/uL HGB 13.9 g/dL HCT 42.8 % MCV 95.5 fl MCH 31.0 pg MCHC 32.5 g/dL RDW 13.6 % Platelet Count 241 10 3/cmm MPV 8.7 fL Neutrophils 4.91 10 3/uL Lymphocytes 1.2 10 3/uL Monocytes 0.6 10 3/uL Eosinophils 0.1 10 3/uL Basophils 0.0 10 3/uL Neutrophil % 72.1 % Lymphocyte % 17.6 % Monocyte % 9.0 % Eosinophil % 0.7 % Basophils % 0.3 % NRBC % 0 % Problem List: 1. Grade 3 infiltrating ductal carcinoma of the right breast, stage IA (pT1c, pN0, M0), ER/CA positive and HER-2 negative. Her tumor was high risk by Oncotype DX. 2. 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 She underwent left upper lobectomy on 11/03/2015. 3. Irritable bowel syndrome. 4. Nephrolithiasis. 5. Fibromyalgia. 6. Chronic anxiety. Problems Addressed with this Encounter and Plan: 1. Patient with grade 3 infiltrating ductal carcinoma of the right breast, stage IA (pT1c, pN0, M0), ER/CA positive and HER-2 negative. Her tumor was high risk by Oncotype DX with recurrence score 34 corresponding to a 22% 9-year risk of distant recurrence with hormonal therapy alone. The predicted benefit with addition of adjuvant chemotherapy was > 15%. She underwent ultrasound directed biopsy of the right breast on 08/13/2020 followed by right breast lumpectomy with axillary sentinel lymph node biopsy on 09/09/2020. In the setting of a high Oncotype DX score and with a predicted benefit of > 15%, she was given adjuvant chemotherapy with 4 cycles of cyclophosphamide/docetaxel, administered from 11/03/2020 though 01/19/2021. Side effects included some nausea, fatigue, and neutropenia. She also had worsening of neuropathy, and she had some changes in her finger and toenails. She then began radiation to the right breast on 02/21/2021. She completed treatment on 03/21/2021 to a total dose of 5000 cGy administered in 20 fractions. She initially was significantly fatigued following completion of the radiation, but that has now improved significantly. She has some residual neuropathy and nail changes from her chemotherapy. She will now begin adjuvant hormonal therapy with anastrozole 1 mg daily. She has aware that it may cause or worsen osteoporosis. Her baseline DEXA scan on 03/25/2021 did show normal bone density with T score 2.6 in the lumbar spine, 0.5 in the left hip, and 1.0 in the right hip. She is also aware that the anastrozole may cause joint pain as a side effect. She will be scheduled for follow-up visit in August, which will coordinate with her yearly follow-up CT imaging for the carcinoid. In the meantime, she is aware that she needs to call if there is significant worsening of her joint pain. 2. 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 She underwent left upper lobectomy on 11/03/2015. She has been followed on observation/expectant management. Thus far there has been no evidence of recurrence. She will be due for her yearly surveillance chest CT in August. Signed By: Mark Rollins M.D. <<Signature on File>>
== END 2021-05-10 23:59 | disposition home or self-care (01) ==
LOC: ONCMED 05:29
PROVIDERS: PCP Nurse Practitioner Family; Visit Provider Internal Medicine Medical Oncology
DX: C50.811 Malignant neoplasm of overlapping sites of right female breast (principal); Z17.0 Estrogen receptor positive status [ER+]; C78.02 Secondary malignant neoplasm of left lung; K58.9 Irritable bowel syndrome, unspecified; N20.0 Calculus of kidney; M79.7 Fibromyalgia; F41.9 Anxiety disorder, unspecified; Z79.811 Long term (current) use of aromatase inhibitors; Z90.11 Acquired absence of right breast and nipple; Z92.21 Personal history of antineoplastic chemotherapy
CPT/HCPCS: 36415; 80053; 82306; 85025; 99024; 99214

== ENCOUNTER 2021-06-13 06:31 | Outpatient (RCR) | payer MEDICARE, BC, SELFPAY ==
--- NOTE | 2021-06-13 14:08 | ONC FU_ITS ---
Dr. Rollins Patient Follow-Up Note Patient: Sammi Harrell Unit #: [id number]: [id number] Dicatated By: Mark Rollins M.D.Date of Visit:Jun 13, 2021 Onc Med Follow-up/Prog Note Chief Complaint: Breast cancer and malignant carcinoid. History of Present Illness: This is a 70 year-old woman whom I have followed for malignant carcinoid involving the left lung, stage IIA (T1b, N1, M0). 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 Her tumor was higher risk by Oncotype DX. Her diagnostic mammogram on 08/13/2020 showed an irregular focal asymmetry in the upper inner quadrant of the right breast measuring 1.3 cm. Ultrasound showed an irregular hypoechoic mass with indistinct margins at the 1:00 axis of the right breast measuring 0.5 x 0.4 x 0.4 cm. The findings were BI-RADS 4, suspicious. She underwent ultrasound directed biopsy on 08/13/2020. Pathology showed grade 2 invasive ductal carcinoma. There was associated high-grade ductal carcinoma in situ. The breast prognostic profile showed ER positive at 99% and MT positive at 39%. Tumor was negative for overexpression of HER-2/emelina, 1+ by IHC. On 09/09/2020 she underwent right breast lumpectomy with axillary sentinel lymph node biopsy. Pathology on the lumpectomy showed grade 3 invasive ductal carcinoma measuring 1.6 cm in greatest dimension. The margins were free of tumor, with the closest being the deep margin at 2 mm. There was no involvement in 1 sentinel lymph node. Her Oncotype DX showed recurrence score of 34, corresponding to 22% risk of distant recurrence at 9 years with adjuvant hormonal therapy. The predicted benefit with addition of adjuvant chemotherapy was > 15%. With that finding she was recommended to undergo adjuvant chemotherapy with 4 cycles of cyclophosphamide/docetaxel. She began cycle 1 of adjuvant cyclophosphamide/docetaxel on 11/03/2020. She tolerated it well and she continued with cycle 2 on 11/24/2020, with cycle 3 on 12/15/2020, and with cycle 4 on 01/19/2021. She had significant fatigue following completion of the chemotherapy and she did report some worsening of her neuropathy. She was then seen by Dr. Hernandez for radiation oncology consultation. She began radiation to the right breast on 02/21/2021. She completed treatment on 03/21/2021 to a total dose of 5000 cGy administered in 20 fractions. She has additional history malignant carcinoid of the left lung. She had presented with cough and her chest CT in September 2015 showed a 2 cm lesion in the area of the left hilum which was concerning for malignancy. Further evaluation with PET/CT on 10/09/2015 revealed a 2.3 cm left upper lobe mass in the evelio-hilar region with SUV of 4.8, without regional lymphadenopathy. Bronchoscopy on 10/15/2015 was non-diagnostic. On 11/03/15 she underwent a formal left upper lobectomy by Dr. Short. Her surgical pathology revealed a 2.5 cm centimeter atypical carcinoid with spindle cell type. Ki-67 index was with low proliferative rate. One hilar lymph node was involved by direct extension from the main tumor mass. An additional 9 lymph nodes were reported to be benign. Thus, her disease was pathologic stage IIA (T1b, N1, M0). She was seen by Dr. López on 11/24/2015. Expectant management was recommended. Surveillance chest CT scan performed on 05/26/2016 showed a new left anterolateral lower lobe 6-7 mm non calcified nodule, felt to be non specific. There was stable appearance of a right lower lobe subpleural nodule. There was new left and similar right lower lung zone scarring or subsegmental atelectasis. A repeat CT scan performed on 08/25/2016 showed no recurrent mass or adenopathy. There were multiple bilateral subcentimeter pulmonary/ subpleural nodules which had been present since 09/30/2015 and changed minimally in size, probably due to volume averaging. These nodules were all negative on PET/CT from 10/09/2015. With those findings she continued on observation/expectant management. Her subsequent surveillance CT scans in 2016, 2017, and 2018 showed no evidence of disease progression. Her surveillance CT scans of the chest, abdomen, and pelvis on 08/16/2020 showed no findings of recurrent or metastatic neoplasm. There were no changes compared to the August 2019 study. Her other medical illnesses include irritable bowel syndrome, nephrolithiasis, fibromyalgia, and chronic anxiety. She has a history of colonic polyps. She is a nonsmoker. INTERIM HISTORY: Her adjuvant endocrine therapy was initially delayed due to persistent fatigue following complainant of her radiation. As of her follow-up visit on 05/09/2021 she was feeling better generally, and at that point she began adjuvant hormonal therapy with anastrozole 1 mg daily. She is seen now for an unplanned visit. She had stopped the anastrozole within 2 to 3 weeks due to episodes of severe sweating, which are occurring both during the daytime and at night. She also is having mood swings and anxiety. The sweating has not really improved since she has been off the medication. She continues to have some fatigue. Her ECOG score is 1. She has good appetite. She has not had fever. She sometimes has shortness of breath. She does not complain of cough. On occasion she has had chest pain in the morning. She does not complain of nausea. Her acid reflux is adequately managed with Protonix. Bowel function is fair. She has no complaints. She continues to have some joint pain, that has not changed significantly. She has persistent neuropathy in her hands and in her toes, and it does tend to affect her balance. Medications: Albuterol Sulfate 1 ((2.5 mg/3ml) 0.083%) Nebulization solution Inhalation four times a day PRN, ALPRAZolam 0.25 mg (of 0.5 mg) Tablet Oral PRN, Cholecalciferol 1 Capsule (of 50 mcg ) Oral daily, Hydrocodone-Acetaminophen 1 Tablet (of 5-325 mg) Oral q 6 hours PRN, Imodium A-D Capsule Oral PRN, Lomotil Tablet Oral PRN, Pantoprazole Sodium 1 (40 mg) Tablet, enteric coated Oral daily, TraZODone HCl 100 mg (of 50 mg) Tablet Oral daily Allergies: clindamycin and macrobid. Vital Signs: Performed on Jun 13, 2021 12:00 Height - 69.00 in Weight - 281.6 lbs (HIGH) BSA - 2.39 sq.m BMI - 41.59 (HIGH) Temperature - 97.6 F (LOW) Pulse - 60 /min Respiration - 18 /min BP - 144/76 mm(hg) (HIGH) O2 Sat - 95 % (LOW) Pain - 2 Fatigue - 3 Physical Examination: Constitutional - She looks pretty good generally, Eyes - Sclerae nonicteric. Conjunctivae clear, ENMT - No lesions noted in the oral cavity, Hematologic/Lymphatic - No cervical, clavicular, or axillary adenopathy, Respiratory - Lungs are clear, Cardiovascular - Heart rhythm is regular. There is no murmur, gallop, or rub noted, Abdomen - Moderately distended. Liver and spleen are not enlarged. There is no abdominal mass or ascites noted and there is no inguinal adenopathy, Extremities - Mild edema, Neurologic - No focal neurologic deficits noted. Problem List: 1. Grade 3 infiltrating ductal carcinoma of the right breast, stage IA (pT1c, pN0, M0), ER/MT positive and HER-2 negative. Her tumor was high risk by Oncotype DX. 2. 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 She underwent left upper lobectomy on 11/03/2015. 3. Irritable bowel syndrome. 4. Nephrolithiasis. 5. Fibromyalgia. 6. Chronic anxiety. Problems Addressed with this Encounter and Plan: 1. Patient with grade 3 infiltrating ductal carcinoma of the right breast, stage IA (pT1c, pN0, M0), ER/MT positive and HER-2 negative. Her tumor was high risk by Oncotype DX with recurrence score 34 corresponding to a 22% 9-year risk of distant recurrence with hormonal therapy alone. The predicted benefit with addition of adjuvant chemotherapy was > 15%. She underwent ultrasound directed biopsy of the right breast on 08/13/2020 followed by right breast lumpectomy with axillary sentinel lymph node biopsy on 09/09/2020. In the setting of a high Oncotype DX score and with a predicted benefit of > 15%, she was given adjuvant chemotherapy with 4 cycles of cyclophosphamide/docetaxel, administered from 11/03/2020 though 01/19/2021. Side effects included some nausea, fatigue, and neutropenia. She also had worsening of neuropathy, and she had some changes in her finger and toenails. She then began radiation to the right breast on 02/21/2021. She completed treatment on 03/21/2021 to a total dose of 5000 cGy administered in 20 fractions. She initially was significantly fatigued following completion of the radiation. As of her follow-up visit on 05/09/2021 she was feeling better and at that point she began adjuvant hormonal therapy with anastrozole 1 mg daily. He was put on hold within 2 to 3 weeks due to side effects, the most significant of which was episodes severe sweating, both during the daytime and at night. She also reported mood changes. Those symptoms have not really improved all that much since she has been off the medication. As such, for the time being, she will remain off treatment. She will be given a trial of therapy with venlafaxine ER 75 mg daily. She will be scheduled for a follow-up visit in 1 month. 2. 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 She underwent left upper lobectomy on 11/03/2015. She has been followed on observation/expectant management. Thus far there has been no evidence of recurrence. She will be due for her yearly surveillance chest CT in August. Signed By: Mark Rollins M.D. <<Signature on File>>
== END 2021-07-10 23:59 | disposition home or self-care (01) ==
LOC: ONCMED 06:31
PROVIDERS: PCP Nurse Practitioner Family; Visit Provider Internal Medicine Medical Oncology
DX: C50.811 Malignant neoplasm of overlapping sites of right female breast (principal); Z17.0 Estrogen receptor positive status [ER+]; K58.9 Irritable bowel syndrome, unspecified; N20.0 Calculus of kidney; M79.7 Fibromyalgia; F41.9 Anxiety disorder, unspecified; Z79.811 Long term (current) use of aromatase inhibitors; Z90.11 Acquired absence of right breast and nipple; Z85.118 Personal history of other malignant neoplasm of bronchus and lung
CPT/HCPCS: 99214

== ENCOUNTER 2021-08-02 15:23 | Outpatient (RCR) | payer MEDICARE, BC, SELFPAY ==
--- NOTE | 2021-08-03 06:52 | ONC FU_ITS ---
Dr. Rollins Patient Follow-Up Note Patient: Sammi Harrell Unit #: [id number]: [id number] Dicatated By: Mark Rollins M.D.Date of Visit:Aug 02, 2021 Onc Med Follow-up/Prog Note Chief Complaint: Breast cancer and malignant carcinoid. History of Present Illness: This is a 70 year-old woman whom I have followed for malignant carcinoid involving the left lung, stage IIA (T1b, N1, M0). 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 Her tumor was higher risk by Oncotype DX. Her diagnostic mammogram on 08/13/2020 showed an irregular focal asymmetry in the upper inner quadrant of the right breast measuring 1.3 cm. Ultrasound showed an irregular hypoechoic mass with indistinct margins at the 1:00 axis of the right breast measuring 0.5 x 0.4 x 0.4 cm. The findings were BI-RADS 4, suspicious. She underwent ultrasound directed biopsy on 08/13/2020. Pathology showed grade 2 invasive ductal carcinoma. There was associated high-grade ductal carcinoma in situ. The breast prognostic profile showed ER positive at 99% and NE positive at 39%. Tumor was negative for overexpression of HER-2/emelina, 1+ by IHC. On 09/09/2020 she underwent right breast lumpectomy with axillary sentinel lymph node biopsy. Pathology on the lumpectomy showed grade 3 invasive ductal carcinoma measuring 1.6 cm in greatest dimension. The margins were free of tumor, with the closest being the deep margin at 2 mm. There was no involvement in 1 sentinel lymph node. Her Oncotype DX showed recurrence score of 34, corresponding to 22% risk of distant recurrence at 9 years with adjuvant hormonal therapy. The predicted benefit with addition of adjuvant chemotherapy was > 15%. With that finding she was recommended to undergo adjuvant chemotherapy with 4 cycles of cyclophosphamide/docetaxel. She began cycle 1 of adjuvant cyclophosphamide/docetaxel on 11/03/2020. She tolerated it well and she continued with cycle 2 on 11/24/2020, with cycle 3 on 12/15/2020, and with cycle 4 on 01/19/2021. She had significant fatigue following completion of the chemotherapy and she did report some worsening of her neuropathy. She was then seen by Dr. Hernandez for radiation oncology consultation. She began radiation to the right breast on 02/21/2021. She completed treatment on 03/21/2021 to a total dose of 5000 cGy administered in 20 fractions. She has additional history malignant carcinoid of the left lung. She had presented with cough and her chest CT in September 2015 showed a 2 cm lesion in the area of the left hilum which was concerning for malignancy. Further evaluation with PET/CT on 10/09/2015 revealed a 2.3 cm left upper lobe mass in the evelio-hilar region with SUV of 4.8, without regional lymphadenopathy. Bronchoscopy on 10/15/2015 was non-diagnostic. On 11/03/15 she underwent a formal left upper lobectomy by Dr. Short. Her surgical pathology revealed a 2.5 cm centimeter atypical carcinoid with spindle cell type. Ki-67 index was with low proliferative rate. One hilar lymph node was involved by direct extension from the main tumor mass. An additional 9 lymph nodes were reported to be benign. Thus, her disease was pathologic stage IIA (T1b, N1, M0). She was seen by Dr. López on 11/24/2015. Expectant management was recommended. Surveillance chest CT scan performed on 05/26/2016 showed a new left anterolateral lower lobe 6-7 mm non calcified nodule, felt to be non specific. There was stable appearance of a right lower lobe subpleural nodule. There was new left and similar right lower lung zone scarring or subsegmental atelectasis. A repeat CT scan performed on 08/25/2016 showed no recurrent mass or adenopathy. There were multiple bilateral subcentimeter pulmonary/ subpleural nodules which had been present since 09/30/2015 and changed minimally in size, probably due to volume averaging. These nodules were all negative on PET/CT from 10/09/2015. With those findings she continued on observation/expectant management. Her subsequent surveillance CT scans in 2016, 2017, and 2018 showed no evidence of disease progression. Her surveillance CT scans of the chest, abdomen, and pelvis on 08/16/2020 showed no findings of recurrent or metastatic neoplasm. There were no changes compared to the August 2019 study. Her other medical illnesses include irritable bowel syndrome, nephrolithiasis, fibromyalgia, and chronic anxiety. She has a history of colonic polyps. She is a nonsmoker. INTERIM HISTORY: Her adjuvant endocrine therapy was initially delayed due to persistent fatigue following complainant of her radiation. As of her follow-up visit on 05/09/2021 she was feeling better generally, and at that point she began adjuvant hormonal therapy with anastrozole 1 mg daily. She had to stop the anastrozole within 2 to 3 weeks due to multiple side effects, including severe sweating, mood swings, and joint pain. She is seen for a followup visit. She has been feeling pretty good generally. Her energy has been improving. She has normal acitivy. ECOG score is 0. She has good appetite. She has not had fever, and her hot flashes and sweating have improved. She is short of breath at times. She has a little bit of cough. She has not been having chest pain. She has no GI or complaints. She has joint pain, especially in her hips, and she has pain in the front of her legs. It is now back to baseline. She has been having a few more headaches. She has some neuropathy, but it is tolerable. Medications: Albuterol Sulfate 1 ((2.5 mg/3ml) 0.083%) Nebulization solution Inhalation four times a day PRN, ALPRAZolam 0.25 mg (of 0.5 mg) Tablet Oral PRN, Anastrozole 1 Tablet (of 1 mg) Oral daily, Cholecalciferol 1 Capsule (of 50 mcg ) Oral daily, Hydrocodone-Acetaminophen 1 Tablet (of 5-325 mg) Oral q 6 hours PRN, Imodium A-D Capsule Oral PRN, Lomotil Tablet Oral PRN, Pantoprazole Sodium 1 (40 mg) Tablet, enteric coated Oral daily, TraZODone HCl 100 mg (of 50 mg) Tablet Oral daily, Venlafaxine HCl ER 1 Tablet (of 75 mg) Capsule SR 24 HR Oral daily Allergies: clindamycin and macrobid. Vital Signs: Performed on Aug 02, 2021 15:44 Height - 69.00 in Weight - 285.8 lbs (HIGH) BSA - 2.40 sq.m BMI - 42.21 (HIGH) Temperature - 98.6 F Pulse - 73 /min Respiration - 18 /min BP - 128/80 mm(hg) O2 Sat - 95 % (LOW) Pain - 0 Fatigue - 0 Physical Examination: Constitutional - She looks pretty good generally, Eyes - Sclerae nonicteric. Conjunctivae clear, ENMT - No lesions noted in the oral cavity, Hematologic/Lymphatic - No cervical, clavicular, or axillary adenopathy, Respiratory - Lungs are clear, Cardiovascular - Heart rhythm is regular. There is no murmur, gallop, or rub noted, Abdomen - Moderately distended. Liver and spleen are not enlarged. There is no abdominal mass or ascites noted and there is no inguinal adenopathy, Extremities - No edema, Neurologic - No focal neurologic deficits noted. Problem List: 1. Grade 3 infiltrating ductal carcinoma of the right breast, stage IA (pT1c, pN0, M0), ER/NE positive and HER-2 negative. Her tumor was high risk by Oncotype DX. 2. 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 She underwent left upper lobectomy on 11/03/2015. 3. Irritable bowel syndrome. 4. Nephrolithiasis. 5. Fibromyalgia. 6. Chronic anxiety. Problems Addressed with this Encounter and Plan: 1. Patient with grade 3 infiltrating ductal carcinoma of the right breast, stage IA (pT1c, pN0, M0), ER/NE positive and HER-2 negative. Her tumor was high risk by Oncotype DX with recurrence score 34 corresponding to a 22% 9-year risk of distant recurrence with hormonal therapy alone. The predicted benefit with addition of adjuvant chemotherapy was > 15%. She underwent ultrasound directed biopsy of the right breast on 08/13/2020 followed by right breast lumpectomy with axillary sentinel lymph node biopsy on 09/09/2020. In the setting of a high Oncotype DX score and with a predicted benefit of > 15%, she was given adjuvant chemotherapy with 4 cycles of cyclophosphamide/docetaxel, administered from 11/03/2020 though 01/19/2021. Side effects included some nausea, fatigue, and neutropenia. She also had worsening of neuropathy, and she had some changes in her finger and toenails. She then began radiation to the right breast on 02/21/2021. She completed treatment on 03/21/2021 to a total dose of 5000 cGy administered in 20 fractions. She initially was significantly fatigued following completion of the radiation. As of her follow-up visit on 05/09/2021 she was feeling better and at that point she began adjuvant hormonal therapy with anastrozole 1 mg daily. It was put on hold within 2 to 3 weeks due to side effects, including episodes severe sweating, mood changes. and joint pain. She began treatment with venlafaxine ER 75 mg daily, and she is now feeling better. She will now begin further adjuvant hormonal therapy with exemestane 25 mg daily. She will be scheduled for a followup visit in 3 months. 2. 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 She underwent left upper lobectomy on 11/03/2015. She has been followed on observation/expectant management. Thus far there has been no evidence of recurrence. She will be scheduled her yearly surveillance CT scans, which are due to be repeated in August. Signed By: Mark Rollins M.D. <<Signature on File>>
== END 2021-08-09 23:59 | disposition home or self-care (01) ==
LOC: ONCMED 15:23
PROVIDERS: PCP Nurse Practitioner Family; Visit Provider Internal Medicine Medical Oncology
DX: C50.811 Malignant neoplasm of overlapping sites of right female breast (principal); Z17.0 Estrogen receptor positive status [ER+]; Z90.11 Acquired absence of right breast and nipple; K58.9 Irritable bowel syndrome, unspecified; N20.0 Calculus of kidney; M79.7 Fibromyalgia; F41.9 Anxiety disorder, unspecified; Z79.818 Long term (current) use of other agents affecting estrogen receptors and estrogen levels; Z85.118 Personal history of other malignant neoplasm of bronchus and lung; Z90.2 Acquired absence of lung [part of]; Z92.21 Personal history of antineoplastic chemotherapy; Z92.3 Personal history of irradiation
CPT/HCPCS: 99214

== ENCOUNTER 2021-08-16 06:32 | Outpatient (RCR) | payer MEDICARE, BC, SELFPAY ==
--- NOTE | 2021-08-16 | CT_ITS ---
WS: [id number] CT CHEST, ABDOMEN, AND PELVIS TECHNIQUE: Contrast-enhanced CT of the chest, abdomen, and pelvis with coronal and sagittal reformatt ed images. CLINICAL INFORMATION: BREAST CA, LUNG CA COMPARISON: 08/16/2020 and 08/20/2019 DLP: 2465.[address] scans at [facility] use at least one of these dose optimization techniques: automated e xposure control; mA and/or kV adjustment per patient size (includes targeted exams where dose is matc hed to clinical indication); or iterative reconstruction. CT CHEST: Prior postoperative changes left upper lobectomy. Multiple stable subcentimeter pulmonary nodules unc hanged over multiple prior studies. No mediastinal or hilar lymphadenopathy. Subpleural opacity right lower lobe measuring 7 mm is unchanged. A few noncalcified opacities in the right upper lobe anterio rly and right middle lobe are unchanged. Subsegmental atelectasis in right middle lobe. Stable right thyroid nodules. Normal caliber thoracic aorta. Surgical clips along the left hilum. No axillary lymphadenopathy. CT ABDOMEN AND PELVIS: Diffuse fatty infiltration of the liver. Normal portal vein and splenic vein. Cholecystectomy clips. Small small low-attenuation lesions in the liver. Normal spleen. Small esophageal hiatal hernia. Mild fatty atrophy of the pancreas. Adrenal glands are normal. Normal renal parenchymal enhancement. Smal l renal cysts. No hydronephrosis. Pelvic phleboliths. Normal caliber abdominal aorta. No abdominal or pelvic lymphadenopathy. No inguinal lymphadenopathy. Normal sigmoid colon. CT/CT chest abd pel w con* IMPRESSION: 1. No evidence of metastatic disease in the chest abdomen or pelvis. 2. A few subcentimeter pulmonary nodules are unchanged from multiple prior exa minations. 3. Diffuse fatty infiltration of the liver. 4. A few stable low-attenuation lesions in the liver likely hepatic cysts. 5. Prior cholecystectomy. 6. Prior left upper lobe lobectomy
[2021-08-16 09:18] LABS: Basophils # 0.1 10^3/uL (0.0-0.1); Basophils % 0.7 %; Eosinophils # 0.1 10^3/uL (0.0-0.8); Eosinophils % 0.7 %; Hematocrit 43.1 % (37.0-47.0); Hemoglobin 14.5 g/dL (11.5-15.3); Lymphocytes # 0.7 10^3/uL (0.8-4.8); Lymphocytes % 9.8 %; Mean Corpuscular HGB Conc 33.6 g/dL (30.0-36.0); Mean Corpuscular Hemoglobin 32.2 pg (28.0-34.0); Mean Corpuscular Volume 95.8 fl (81-99); Mean Platelet Volume 8.5 fL (7.4-10.4); Monocytes # 0.6 10^3/uL (0.2-0.9); Monocytes % 8.1 %; Neutrophils # 5.97 10^3/uL (1.8-7.7); Neutrophils % 80.4 %; Nucleated Red Blood Cells % 0 %; Platelet Count 225 10^3/cmm (130-400); Red Cell Distribution Width 13.2 % (12.1-15.1); White Blood Count 7.4 10^3/uL (4.0-10.0)
[2021-08-16 09:41] LABS: Alanine Aminotransferase 17 U/L (0-33); Albumin Level 4.1 g/dL (3.5-5.2); Alkaline Phosphatase 84 IU/L (35-105); Aspartate Amino Transferase 18 U/L (0-32); Blood Urea Nitrogen 11 mg/dL (8-23); Calcium 8.7 mg/dL (8.5-10.5); Carbon Dioxide 27 mmol/L (22-29); Chloride 101 mmol/L (98-107); Globulin 2.8 g/dL (1.3-4.6); Glucose 86 mg/dL (65-115); Osmolality Calculated 289 mOsm/kg (285-295); Sodium 140 mmol/L (136-145); Total Bilirubin 0.5 mg/dL (0.15-1.2); Total Protein 6.9 g/dL (6.6-8.7)
[2021-08-16 09:57] LABS: 25 Hydroxy Vitamin D 27 ng/mL (30-100)
[2021-08-16] MEDS: iohexol 350 mg/mL 100 mL Btl IV (15:19)
[2021-08-16] MEDS: iohexol 300 mg/mL 50 mL Btl PO (15:20)
[2021-08-21 15:06] LABS: Chromogranin A LC/MS/MS 93 ng/mL (ADULTS: <311)
[2021-08-24 22:58] LABS: Serotonin Whole Blood <10 ng/mL (56-244)
== END 2021-09-09 23:59 | disposition home or self-care (01) ==
LOC: ONCMED 06:32
PROVIDERS: PCP Nurse Practitioner Family; Visit Provider Internal Medicine Medical Oncology
DX: C50.211 Malignant neoplasm of upper-inner quadrant of right female breast (principal); Z17.0 Estrogen receptor positive status [ER+]; R91.1 Solitary pulmonary nodule; K76.0 Fatty (change of) liver, not elsewhere classified; K76.89 Other specified diseases of liver; Z90.2 Acquired absence of lung [part of]
CPT/HCPCS: 36415; 71260; 74177; 80053; 82306; 84260; 85025; 86316; Q9967

== ENCOUNTER 2021-11-07 14:51 | Outpatient (CLI) | payer MEDICARE, BC, SELFPAY ==
--- NOTE | 2021-11-11 14:31 | ONC FU_ITS ---
Dr. Rollins Patient Follow-Up Note Patient: Sammi Harrell Unit #: [id number]: [id number] Dicatated By: Mark Rollins M.D.Date of Visit:Nov 07, 2021 Onc Med Follow-up/Prog Note Chief Complaint: Breast cancer and malignant carcinoid. History of Present Illness: This is a 71 year-old woman whom I have followed for malignant carcinoid involving the left lung, stage IIA (T1b, N1, M0). 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 Her tumor was higher risk by Oncotype DX. Her diagnostic mammogram on 08/13/2020 showed an irregular focal asymmetry in the upper inner quadrant of the right breast measuring 1.3 cm. Ultrasound showed an irregular hypoechoic mass with indistinct margins at the 1:00 axis of the right breast measuring 0.5 x 0.4 x 0.4 cm. The findings were BI-RADS 4, suspicious. She underwent ultrasound directed biopsy on 08/13/2020. Pathology showed grade 2 invasive ductal carcinoma. There was associated high-grade ductal carcinoma in situ. The breast prognostic profile showed ER positive at 99% and IL positive at 39%. Tumor was negative for overexpression of HER-2/emelina, 1+ by IHC. On 09/09/2020 she underwent right breast lumpectomy with axillary sentinel lymph node biopsy. Pathology on the lumpectomy showed grade 3 invasive ductal carcinoma measuring 1.6 cm in greatest dimension. The margins were free of tumor, with the closest being the deep margin at 2 mm. There was no involvement in 1 sentinel lymph node. Her Oncotype DX showed recurrence score of 34, corresponding to 22% risk of distant recurrence at 9 years with adjuvant hormonal therapy. The predicted benefit with addition of adjuvant chemotherapy was > 15%. With that finding she was recommended to undergo adjuvant chemotherapy with 4 cycles of cyclophosphamide/docetaxel. She began cycle 1 of adjuvant cyclophosphamide/docetaxel on 11/03/2020. She tolerated it well and she continued with cycle 2 on 11/24/2020, with cycle 3 on 12/15/2020, and with cycle 4 on 01/19/2021. She had significant fatigue following completion of the chemotherapy and she did report some worsening of her neuropathy. She was then seen by Dr. Hernandez for radiation oncology consultation. She began radiation to the right breast on 02/21/2021. She completed treatment on 03/21/2021 to a total dose of 5000 cGy administered in 20 fractions. She has additional history malignant carcinoid of the left lung. She had presented with cough and her chest CT in September 2015 showed a 2 cm lesion in the area of the left hilum which was concerning for malignancy. Further evaluation with PET/CT on 10/09/2015 revealed a 2.3 cm left upper lobe mass in the evelio-hilar region with SUV of 4.8, without regional lymphadenopathy. Bronchoscopy on 10/15/2015 was non-diagnostic. On 11/03/15 she underwent a formal left upper lobectomy by Dr. Short. Her surgical pathology revealed a 2.5 cm centimeter atypical carcinoid with spindle cell type. Ki-67 index was with low proliferative rate. One hilar lymph node was involved by direct extension from the main tumor mass. An additional 9 lymph nodes were reported to be benign. Thus, her disease was pathologic stage IIA (T1b, N1, M0). She was seen by Dr. López on 11/24/2015. Expectant management was recommended. Surveillance chest CT scan performed on 05/26/2016 showed a new left anterolateral lower lobe 6-7 mm non calcified nodule, felt to be non specific. There was stable appearance of a right lower lobe subpleural nodule. There was new left and similar right lower lung zone scarring or subsegmental atelectasis. A repeat CT scan performed on 08/25/2016 showed no recurrent mass or adenopathy. There were multiple bilateral subcentimeter pulmonary/ subpleural nodules which had been present since 09/30/2015 and changed minimally in size, probably due to volume averaging. These nodules were all negative on PET/CT from 10/09/2015. With those findings she continued on observation/expectant management. Her subsequent surveillance CT scans in 2016, 2017, and 2018 showed no evidence of disease progression. Her surveillance CT scans of the chest, abdomen, and pelvis on 08/16/2020 showed no findings of recurrent or metastatic neoplasm. There were no changes compared to the August 2019 study. Her other medical illnesses include irritable bowel syndrome, nephrolithiasis, fibromyalgia, and chronic anxiety. She has a history of colonic polyps. She is a nonsmoker. INTERIM HISTORY: Her adjuvant endocrine therapy was initially delayed due to persistent fatigue following complainant of her radiation. As of her follow-up visit on 05/09/2021 she was feeling better generally, and at that point she began adjuvant hormonal therapy with anastrozole 1 mg daily. She had to stop the anastrozole within 2 to 3 weeks due to multiple side effects, including severe sweating, mood swings, and joint pain. As of her follow-up visit on 08/02/2020 when she was feeling better, and she then began further adjuvant hormonal therapy with exemestane 25 mg daily. Her surveillance CT scans of the chest, abdomen, and pelvis on 08/16/2021 showed a few subcentimeter pulmonary nodules which were unchanged compared to multiple prior studies. There was diffuse fatty infiltration of the liver. A few low-attenuation lesions in the liver were stable and likely hepatic cysts. Overall there was no evidence for metastatic disease. She is seen for a followup visit. She has not been feeling good. She says her energy is very low. She has been very fatigued and she has been having generalized joint stiffness. She also has pain in her hands and knees. Appetite is fair. She has continued to gain weight. She has hot flashes and sweating. She has not had sore mouth or throat. She does have some cough, and she has shortness of breath with activity. She does not complain of chest pain. She still occasionally has waves of nausea/lightheadedness. She has occasional acid reflux. Bowel function has been fair. She has no complaints. She occasionally has pain in the back of her head. She has neuropathy in her feet. Medications: Albuterol Sulfate 1 ((2.5 mg/3ml) 0.083%) Nebulization solution Inhalation four times a day PRN, ALPRAZolam 0.25 mg (of 0.5 mg) Tablet Oral PRN, Anastrozole 1 Tablet (of 1 mg) Oral daily, Cholecalciferol 1 Capsule (of 50 mcg ) Oral daily, Hydrocodone-Acetaminophen 1 Tablet (of 5-325 mg) Oral q 6 hours PRN, Imodium A-D Capsule Oral PRN, Lomotil Tablet Oral PRN, Pantoprazole Sodium 1 (40 mg) Tablet, enteric coated Oral daily, TraZODone HCl 100 mg (of 50 mg) Tablet Oral daily, Venlafaxine HCl ER 1 Tablet (of 75 mg) Capsule SR 24 HR Oral daily Allergies: clindamycin and macrobid. Vital Signs: Performed on Nov 07, 2021 15:10 Height - 69.00 in Weight - 298.2 lbs (HIGH) BSA - 2.45 sq.m BMI - 44.04 (HIGH) Temperature - 97.5 F (LOW) Pulse - 92 /min Respiration - 20 /min BP - 138/89 mm(hg) O2 Sat - 95 % (LOW) Pain - 4 Fatigue - 7 Physical Examination: Constitutional - She looks pretty good generally, Eyes - Sclerae nonicteric. Conjunctivae clear, ENMT - No lesions noted in the oral cavity, Hematologic/Lymphatic - No cervical, clavicular, or axillary adenopathy, Respiratory - Lungs are clear, Cardiovascular - Heart rhythm is regular. There is no murmur, gallop, or rub noted, Abdomen - Moderately distended. Liver and spleen are not enlarged. There is no abdominal mass or ascites noted and there is no inguinal adenopathy, Extremities - No edema, Neurologic - No focal neurologic deficits noted. Lab/Imaging: Test performed on Aug 16, 2021 09:02 Serotonin, Serum < 10 ng/mL Sodium 140 mmol/L Vitamin D (25-Hydroxy), Total 27 ng/mL Potassium 4.0 mmol/L Chloride 101 mmol/L CO2 27 mmol/L Anion Gap 16.0 BUN 11 mg/dL Creatinine 0.6 mg/dL Cr Clearance (Est) 179.7000 mL/min Glucose 86 mg/dL Osmolality - Calculated 289 mOsm/kg Calcium 8.7 mg/dL Protein, Total 6.9 g/dL Albumin 4.1 g/dL Globulin 2.8 g/dL Bilirubin, Total 0.5 mg/dL ALT (SGPT) 17 U/L AST (SGOT) 18 U/L Alkaline Phosphatase 84 IU/L WBC 7.4 10 3/uL RBC 4.50 10 6/uL HGB 14.5 g/dL HCT 43.1 % MCV 95.8 fl MCH 32.2 pg MCHC 33.6 g/dL RDW 13.2 % Platelet Count 225 10 3/cmm MPV 8.5 fL Neutrophils 5.97 10 3/uL Lymphocytes 0.7 10 3/uL Monocytes 0.6 10 3/uL Eosinophils 0.1 10 3/uL Basophils 0.1 10 3/uL Neutrophil % 80.4 % Lymphocyte % 9.8 % Monocyte % 8.1 % Eosinophil % 0.7 % Basophils % 0.7 % NRBC % 0 % Problem List: 1. Grade 3 infiltrating ductal carcinoma of the right breast, stage IA (pT1c, pN0, M0), ER/IL positive and HER-2 negative. Her tumor was high risk by Oncotype DX. 2. 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 She underwent left upper lobectomy on 11/03/2015. 3. Irritable bowel syndrome. 4. Nephrolithiasis. 5. Fibromyalgia. 6. Chronic anxiety. Problems Addressed with this Encounter and Plan: 1. Patient with grade 3 infiltrating ductal carcinoma of the right breast, stage IA (pT1c, pN0, M0), ER/IL positive and HER-2 negative. Her tumor was high risk by Oncotype DX with recurrence score 34 corresponding to a 22% 9-year risk of distant recurrence with hormonal therapy alone. The predicted benefit with addition of adjuvant chemotherapy was > 15%. She underwent ultrasound directed biopsy of the right breast on 08/13/2020 followed by right breast lumpectomy with axillary sentinel lymph node biopsy on 09/09/2020. In the setting of a high Oncotype DX score and with a predicted benefit of > 15%, she was given adjuvant chemotherapy with 4 cycles of cyclophosphamide/docetaxel, administered from 11/03/2020 though 01/19/2021. Side effects included some nausea, fatigue, and neutropenia. She also had worsening of neuropathy, and she had some changes in her finger and toenails. She then began radiation to the right breast on 02/21/2021. She completed treatment on 03/21/2021 to a total dose of 5000 cGy administered in 20 fractions. She initially was significantly fatigued following completion of the radiation. As of her follow-up visit on 05/09/2021 she was feeling better and at that point she began adjuvant hormonal therapy with anastrozole 1 mg daily. It was put on hold within 2 to 3 weeks due to side effects, including episodes severe sweating, mood changes. and joint pain. She began treatment with venlafaxine ER 75 mg daily. As of her follow-up visit on 08/02/2020 when she was feeling better, and she then began further adjuvant hormonal therapy with exemestane 25 mg daily. She comes in now with worsening symptoms, including fatigue and generalized joint stiffness/pain. As such, she has advised to stop treatment. She will be scheduled for a follow-up visit in 1 month. 2. 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 She underwent left upper lobectomy on 11/03/2015. She has been followed expectantly. There were no significant changes on surveillance CT scans in August 2021. In the absence of any evidence of recurrence of the carcinoid, she continues on expectant management. Signed By: Mark Rollins M.D. <<Signature on File>>
== END 2021-11-07 14:52 | disposition home or self-care (01) ==
PROVIDERS: PCP Nurse Practitioner Family; Visit Provider Internal Medicine Medical Oncology
DX: C50.211 Malignant neoplasm of upper-inner quadrant of right female breast (principal); Z85.110 Personal history of malignant carcinoid tumor of bronchus and lung; F41.9 Anxiety disorder, unspecified; K58.9 Irritable bowel syndrome, unspecified; M79.7 Fibromyalgia; Z79.899 Other long term (current) drug therapy
CPT/HCPCS: 99214

== ENCOUNTER 2021-12-05 11:29 | Outpatient (CLI) | payer MEDICARE, BC, SELFPAY ==
--- NOTE | 2021-12-05 19:11 | ONC FU_ITS ---
Dr. Rollins Patient Follow-Up Note Patient: Sammi Harrell Unit #: [id number]: 1950 Dicatated By: Mark Rollins M.D.Date of Visit:Dec 05, 2021 Onc Med Follow-up/Prog Note Chief Complaint: Breast cancer and malignant carcinoid. History of Present Illness: This is a 71 year-old woman whom I have followed for malignant carcinoid involving the left lung, stage IIA (T1b, N1, M0). 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 Her tumor was higher risk by Oncotype DX. Her diagnostic mammogram on 08/13/2020 showed an irregular focal asymmetry in the upper inner quadrant of the right breast measuring 1.3 cm. Ultrasound showed an irregular hypoechoic mass with indistinct margins at the 1:00 axis of the right breast measuring 0.5 x 0.4 x 0.4 cm. The findings were BI-RADS 4, suspicious. She underwent ultrasound directed biopsy on 08/13/2020. Pathology showed grade 2 invasive ductal carcinoma. There was associated high-grade ductal carcinoma in situ. The breast prognostic profile showed ER positive at 99% and VT positive at 39%. Tumor was negative for overexpression of HER-2/emelina, 1+ by IHC. On 09/09/2020 she underwent right breast lumpectomy with axillary sentinel lymph node biopsy. Pathology on the lumpectomy showed grade 3 invasive ductal carcinoma measuring 1.6 cm in greatest dimension. The margins were free of tumor, with the closest being the deep margin at 2 mm. There was no involvement in 1 sentinel lymph node. Her Oncotype DX showed recurrence score of 34, corresponding to 22% risk of distant recurrence at 9 years with adjuvant hormonal therapy. The predicted benefit with addition of adjuvant chemotherapy was > 15%. With that finding she was recommended to undergo adjuvant chemotherapy with 4 cycles of cyclophosphamide/docetaxel. She began cycle 1 of adjuvant cyclophosphamide/docetaxel on 11/03/2020. She tolerated it well and she continued with cycle 2 on 11/24/2020, with cycle 3 on 12/15/2020, and with cycle 4 on 01/19/2021. She had significant fatigue following completion of the chemotherapy and she did report some worsening of her neuropathy. She was then seen by Dr. Hernandez for radiation oncology consultation. She began radiation to the right breast on 02/21/2021. She completed treatment on 03/21/2021 to a total dose of 5000 cGy administered in 20 fractions. She has additional history malignant carcinoid of the left lung. She had presented with cough and her chest CT in September 2015 showed a 2 cm lesion in the area of the left hilum which was concerning for malignancy. Further evaluation with PET/CT on 10/09/2015 revealed a 2.3 cm left upper lobe mass in the evelio-hilar region with SUV of 4.8, without regional lymphadenopathy. Bronchoscopy on 10/15/2015 was non-diagnostic. On 11/03/15 she underwent a formal left upper lobectomy by Dr. Short. Her surgical pathology revealed a 2.5 cm centimeter atypical carcinoid with spindle cell type. Ki-67 index was with low proliferative rate. One hilar lymph node was involved by direct extension from the main tumor mass. An additional 9 lymph nodes were reported to be benign. Thus, her disease was pathologic stage IIA (T1b, N1, M0). She was seen by Dr. López on 11/24/2015. Expectant management was recommended. Surveillance chest CT scan performed on 05/26/2016 showed a new left anterolateral lower lobe 6-7 mm non calcified nodule, felt to be non specific. There was stable appearance of a right lower lobe subpleural nodule. There was new left and similar right lower lung zone scarring or subsegmental atelectasis. A repeat CT scan performed on 08/25/2016 showed no recurrent mass or adenopathy. There were multiple bilateral subcentimeter pulmonary/ subpleural nodules which had been present since 09/30/2015 and changed minimally in size, probably due to volume averaging. These nodules were all negative on PET/CT from 10/09/2015. With those findings she continued on observation/expectant management. Her subsequent surveillance CT scans in 2016, 2017, and 2018 showed no evidence of disease progression. Her surveillance CT scans of the chest, abdomen, and pelvis on 08/16/2020 showed no findings of recurrent or metastatic neoplasm. There were no changes compared to the August 2019 study. Her other medical illnesses include irritable bowel syndrome, nephrolithiasis, fibromyalgia, and chronic anxiety. She has a history of colonic polyps. She is a nonsmoker. INTERIM HISTORY: Her adjuvant endocrine therapy was initially delayed due to persistent fatigue following complainant of her radiation. As of her follow-up visit on 05/09/2021 she was feeling better generally, and at that point she began adjuvant hormonal therapy with anastrozole 1 mg daily. She had to stop the anastrozole within 2 to 3 weeks due to multiple side effects, including severe sweating, mood swings, and joint pain. As of her follow-up visit on 08/02/2020 when she was feeling better, and she then began further adjuvant hormonal therapy with exemestane 25 mg daily. Her surveillance CT scans of the chest, abdomen, and pelvis on 08/16/2021 showed a few subcentimeter pulmonary nodules which were unchanged compared to multiple prior studies. There was diffuse fatty infiltration of the liver. A few low-attenuation lesions in the liver were stable and likely hepatic cysts. Overall there was no evidence for metastatic disease. At her follow-up visit on 11/07/2021 she reported significant side effects with the exemestane, the most significant of which were severe fatigue and generalized joint stiffness and pain. She was recommended to stop treatment. She is seen for a follow-up visit. She is still having some joint pain in her hands and knees, but overall she is feeling much better since stopping the exemestane. She continues to have hot flashes, least 2 each night and at least 2 or 3 during the daytime. She has been taking venlafaxine for the hot flashes and for anxiety/depression, but she thinks it has caused her to gain weight. She indicates in the past she had done well taking bupropion. Medications: Albuterol Sulfate 1 ((2.5 mg/3ml) 0.083%) Nebulization solution Inhalation four times a day PRN, ALPRAZolam 0.25 mg (of 0.5 mg) Tablet Oral PRN, Hydrocodone-Acetaminophen 1 Tablet (of 5-325 mg) Oral q 6 hours PRN, Imodium A-D Capsule Oral PRN, Lomotil Tablet Oral PRN, Pantoprazole Sodium 1 (40 mg) Tablet, enteric coated Oral daily, TraZODone HCl 100 mg (of 50 mg) Tablet Oral daily, Venlafaxine HCl ER 1 Tablet (of 75 mg) Capsule SR 24 HR Oral daily Allergies: clindamycin and macrobid. Vital Signs: Performed on Dec 05, 2021 11:47 Height - 69.00 in Weight - 294.4 lbs (LOW) BSA - 2.43 sq.m BMI - 43.48 (HIGH) Temperature - 98.2 F (LOW) Pulse - 76 /min Respiration - 18 /min BP - 143/82 mm(hg) (HIGH) O2 Sat - 95 % (LOW) Pain - 2 Fatigue - 4 Problem List: 1. Grade 3 infiltrating ductal carcinoma of the right breast, stage IA (pT1c, pN0, M0), ER/VT positive and HER-2 negative. Her tumor was high risk by Oncotype DX. 2. 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 She underwent left upper lobectomy on 11/03/2015. 3. Irritable bowel syndrome. 4. Nephrolithiasis. 5. Fibromyalgia. 6. Chronic anxiety. Problems Addressed with this Encounter and Plan: 1. Patient with grade 3 infiltrating ductal carcinoma of the right breast, stage IA (pT1c, pN0, M0), ER/VT positive and HER-2 negative. Her tumor was high risk by Oncotype DX with recurrence score 34 corresponding to a 22% 9-year risk of distant recurrence with hormonal therapy alone. The predicted benefit with addition of adjuvant chemotherapy was > 15%. She underwent ultrasound directed biopsy of the right breast on 08/13/2020 followed by right breast lumpectomy with axillary sentinel lymph node biopsy on 09/09/2020. In the setting of a high Oncotype DX score and with a predicted benefit of > 15%, she was given adjuvant chemotherapy with 4 cycles of cyclophosphamide/docetaxel, administered from 11/03/2020 though 01/19/2021. Side effects included some nausea, fatigue, and neutropenia. She also had worsening of neuropathy, and she had some changes in her finger and toenails. She then began radiation to the right breast on 02/21/2021. She completed treatment on 03/21/2021 to a total dose of 5000 cGy administered in 20 fractions. She initially was significantly fatigued following completion of the radiation. As of her follow-up visit on 05/09/2021 she was feeling better and at that point she began adjuvant hormonal therapy with anastrozole 1 mg daily. It was put on hold within 2 to 3 weeks due to side effects, including episodes severe sweating, mood changes. and joint pain. She began treatment with venlafaxine ER 75 mg daily. As of her follow-up visit on 08/02/2020 when she was feeling better, and she then began further adjuvant hormonal therapy with exemestane 25 mg daily. At her follow-up visit on 11/07/2021 she reported a significant increase in fatigue and musculoskeletal pain, and the exemestane was put on hold. Since stopping the exemestane she has been feeling somewhat better. She continues to have some joint pain and fatigue, though not as severe. She also still has hot flashes, and she thinks the venlafaxine has caused her to gain weight. At this point her adjuvant hormonal therapy will remain on hold. I am going to taper her off the venlafaxine and have her restart bupropion 150 mg daily. If she is feeling better with the change in her antidepressant, I will then have her start further adjuvant hormonal therapy with tamoxifen 20 mg daily. I did review a potential risks associated with the tamoxifen, which include an increased risk for thromboembolism and a small risk for endometrial carcinoma. We discussed the fact that it may also cause hot flashes. 2. 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 She underwent left upper lobectomy on 11/03/2015. She has been followed expectantly. There were no significant changes on surveillance CT scans in August 2021. In the absence of any evidence of recurrence of the carcinoid, she continues on expectant management. Signed By: Mark Rollins M.D. <<Signature on File>>
== END 2021-12-05 11:30 | disposition home or self-care (01) ==
LOC: ONCMED 11:32
PROVIDERS: PCP Nurse Practitioner Family; Visit Provider Internal Medicine Medical Oncology
DX: C50.811 Malignant neoplasm of overlapping sites of right female breast (principal); Z17.0 Estrogen receptor positive status [ER+]; Z85.110 Personal history of malignant carcinoid tumor of bronchus and lung; K58.9 Irritable bowel syndrome, unspecified; N20.0 Calculus of kidney; M79.7 Fibromyalgia; F41.1 Generalized anxiety disorder; Z79.811 Long term (current) use of aromatase inhibitors; Z92.21 Personal history of antineoplastic chemotherapy; Z92.3 Personal history of irradiation
CPT/HCPCS: 99214

== ENCOUNTER → 2022-01-23 14:28 | Outpatient (BNVA) | payer MEDICARE, BC, SELFPAY | PROVIDERS: PCP Nurse Practitioner Family; Visit Provider Podiatrist Foot & Ankle Surgery | DX: M20.41 Other hammer toe(s) (acquired), right foot (principal); M20.42 Other hammer toe(s) (acquired), left foot; L85.1 Acquired keratosis [keratoderma] palmaris et plantaris; L60.3 Nail dystrophy | CPT/HCPCS: 99213 ==

== ENCOUNTER 2022-02-01 14:20 | Oncology outpatient (recurring) (ONCR) | payer MEDICARE, BC, SELFPAY ==
[2022-02-01 16:02] LABS: Basophils % 0.3 %; Eosinophils # 0.1 10^3/uL (0.0-0.8); Eosinophils % 0.9 %; Hematocrit 42.4 % (37.0-47.0); Hemoglobin 13.7 g/dL (11.5-15.3); Lymphocytes # 1.6 10^3/uL (0.8-4.8); Lymphocytes % 20.3 %; Mean Corpuscular HGB Conc 32.3 g/dL (30.0-36.0); Mean Corpuscular Hemoglobin 31.5 pg (28.0-34.0); Mean Corpuscular Volume 97.5 fl (81-99); Mean Platelet Volume 8.8 fL (7.4-10.4); Monocytes # 0.6 10^3/uL (0.2-0.9); Neutrophils % 70.2 %; Nucleated Red Blood Cells % 0 %; Platelet Count 208 10^3/cmm (130-400); Red Blood Count 4.35 10^6/uL (4.1-5.3); Red Cell Distribution Width 13.2 % (12.1-15.1); White Blood Count 7.8 10^3/uL (4.0-10.0)
[2022-02-01 17:21] LABS: Alanine Aminotransferase 23 U/L (0-33); Alkaline Phosphatase 79 IU/L (35-105); Anion Gap 15.3 (5-19); Aspartate Amino Transferase 19 U/L (0-32); Blood Urea Nitrogen 13 mg/dL (8-23); Calcium 8.5 mg/dL (8.5-10.5); Carbon Dioxide 27 mmol/L (22-29); Chloride 104 mmol/L (98-107); Globulin 2.4 g/dL (1.3-4.6); Glucose 119 mg/dL (65-115); Osmolality Calculated 297 mOsm/kg (285-295); Potassium 3.3 mmol/L (3.5-5.1); Sodium 143 mmol/L (136-145); Thyroid Stimulating Hormone 1.96 uIU/mL (0.27-4.20); Total Bilirubin 0.2 mg/dL (0.15-1.2); Total Protein 6.4 g/dL (6.6-8.7)
[2022-02-01 20:42] LABS: 25 Hydroxy Vitamin D 31 ng/mL (30-100); Vitamin B12 244 pg/mL (232-1245)
== END 2022-02-07 23:59 | disposition home or self-care (01) ==
LOC: ONCMED 14:21
PROVIDERS: PCP Nurse Practitioner Family; Visit Provider Nurse Practitioner
DX: C50.811 Malignant neoplasm of overlapping sites of right female breast (principal); Z17.0 Estrogen receptor positive status [ER+]; Z90.11 Acquired absence of right breast and nipple; Z79.811 Long term (current) use of aromatase inhibitors; Z92.3 Personal history of irradiation; R53.83 Other fatigue; E55.9 Vitamin D deficiency, unspecified; Z79.899 Other long term (current) drug therapy
CPT/HCPCS: 80053; 82306; 82607; 84443; 85025; 99214; 99999

== ENCOUNTER 2022-02-27 12:25 | Oncology outpatient (recurring) (ONCR) | payer MEDICARE, BC, SELFPAY | END 2022-02-27 23:59 | disposition home or self-care (01) | PROVIDERS: PCP Nurse Practitioner Family; Visit Provider Nurse Practitioner | DX: C50.811 Malignant neoplasm of overlapping sites of right female breast (principal); Z17.0 Estrogen receptor positive status [ER+]; R53.83 Other fatigue; R68.84 Jaw pain; Z79.818 Long term (current) use of other agents affecting estrogen receptors and estrogen levels; Z79.899 Other long term (current) drug therapy | CPT/HCPCS: 99214 ==

== ENCOUNTER 2022-05-30 12:56 | Oncology outpatient (recurring) (ONCR) | payer MEDICARE, BC, SELFPAY | END 2022-06-09 23:59 | disposition home or self-care (01) | PROVIDERS: PCP Nurse Practitioner Family; Visit Provider Internal Medicine Medical Oncology | DX: C50.811 Malignant neoplasm of overlapping sites of right female breast (principal); Z17.0 Estrogen receptor positive status [ER+]; R53.0 Neoplastic (malignant) related fatigue; Z79.818 Long term (current) use of other agents affecting estrogen receptors and estrogen levels; Z92.21 Personal history of antineoplastic chemotherapy; Z92.3 Personal history of irradiation; Z85.118 Personal history of other malignant neoplasm of bronchus and lung; Z90.2 Acquired absence of lung [part of] | CPT/HCPCS: 99214 ==

== ENCOUNTER → 2022-07-19 10:55 | Outpatient (BNVA) | payer MEDICARE, BC, SELFPAY | PROVIDERS: PCP Nurse Practitioner Family; Visit Provider Podiatrist Foot & Ankle Surgery | DX: M20.41 Other hammer toe(s) (acquired), right foot (principal); M20.42 Other hammer toe(s) (acquired), left foot; L85.1 Acquired keratosis [keratoderma] palmaris et plantaris; L60.3 Nail dystrophy; L84 Corns and callosities | CPT/HCPCS: 99214 ==

== ENCOUNTER 2022-08-11 12:12 | Outpatient (CLI) | payer MEDICARE, BC, SELFPAY ==
[2022-08-11] MEDS: iohexol 350 mg/mL 500 mL Btl (per mL) PO (12:24)
[2022-08-11] MEDS: iohexol 350 mg/mL 500 mL Btl (per mL) IV (12:24)
--- NOTE | 2022-08-11 13:30 | CT_ITS ---
WS: [id number] CT CHEST, ABDOMEN AND PELVIS WITH CONTRAST HISTORY: Restaging lung cancer. History of breast cancer. TECHNIQUE: Contiguous 5 mm axial imaging performed through the chest, abdomen and pelvis with IV cont rast, oral contrast has been provided. Coronal and sagittal reformats chest. Coronal and sagittal ref ormats through the abdomen and pelvis. All CT scans at [facility] use at least one of these d ose optimization techniques: automated exposure control; mA and/or kV adjustment per patient size (in cludes targeted exams where dose is matched to clinical indication); or iterative reconstruction. CONTRAST: Omnipaque 350; 95 mL IV. DLP: 1858.92 mGy.cm COMPARISON: 08/16/2021 and 08/16/[address]: Prior LEFT upper lobectomy. Numerous bilateral pulmonary nodules. These nodules ranging in size from 2 to 7 mm. These nodules were also present on the prior study of 08/16/2021 and 08/16/2020. V andra slight increase in size of several of these nodules which may be related to slice selection and n ot growth. The nodule in the lingula has not increased in size but it does appear slightly more solid in appearance as does the nodule in the medial RIGHT upper lobe. There is additional pleural and sub pleural mild groundglass attenuation and thickening in the RIGHT upper lobe which is probably related to post radiation pneumonitis. No mediastinal or hilar adenopathy. Mild atherosclerosis aorta. Normal size pulmonary artery. Heart s ize is normal. Small hiatal hernia. Small RIGHT thyroid nodule. Surgical clips in the RIGHT breast. Abdomen CT: Low-attenuation within the liver from hepatic steatosis. There is artifact through the li markus and the patient's arms are not elevated. The previous the described cyst in the RIGHT lobe is not as well visualized today. No mass is identified. Portal vein is negative. Spleen is normal. Prior ch olecystectomy. Normal pancreas and adrenal glands. Kidneys are normal size. Bilateral too small to ch aracterize hypodensity within the renal cortex. Hypodensities are stable. Nonobstructing calcificatio n RIGHT renal pelvis. Mild atherosclerosis aorta. Nondistended stomach. No small bowel obstruction. Normal appendix. Numerous diverticula throughout th e colon no acute diverticulitis. No ascites or adenopathy. Pelvic CT: Uterus is anteverted. Well-distended urinary bladder. No pelvic mass or adenopathy. No osteoblastic or osteolytic bone disease. CT/CT chest abd pel w con* IMPRESSION: 1. Very minimal increase in size of several subcentimeter pulmonary nodules si nce 08/16/2021. This is probably due to slice selection. To confirm no ongoing p rogression size consider follow-up chest CT in 3-4 months. 2. RIGHT upper lobe pleural/subpleural pneumonitis. Probably post radiation in duced. 3. No evidence for metastatic disease in the abdomen or pelvis. 4. Prior cholecystectomy. 5. Mild diverticulosis without acute diverticulitis. 6. Small hiatal hernia.
[2022-08-11 13:47] LABS: Blood Urea Nitrogen 10 mg/dL (8-23)
== END 2022-08-11 12:13 | disposition home or self-care (01) ==
PROVIDERS: PCP Nurse Practitioner Family; Visit Provider Internal Medicine Medical Oncology
DX: C7A.090 Malignant carcinoid tumor of the bronchus and lung (principal); Z85.3 Personal history of malignant neoplasm of breast; Z90.49 Acquired absence of other specified parts of digestive tract; K44.9 Diaphragmatic hernia without obstruction or gangrene; K57.90 Diverticulosis of intestine, part unspecified, without perforation or abscess without bleeding
CPT/HCPCS: 71260; 74177; 82565; 84520; Q9967

== ENCOUNTER 2022-08-30 08:35 | Outpatient (CLI) | payer MEDICARE, BC, SELFPAY ==
[2022-08-30 09:28] LABS: Basophils % 0.6 %; Eosinophils # 0.1 10^3/uL (0.0-0.8); Eosinophils % 1.5 %; Hematocrit 40.6 % (37.0-47.0); Hemoglobin 13.3 g/dL (11.5-15.3); Lymphocytes # 1.1 10^3/uL (0.8-4.8); Lymphocytes % 19.9 %; Mean Corpuscular HGB Conc 32.8 g/dL (30.0-36.0); Mean Corpuscular Hemoglobin 31.8 pg (28.0-34.0); Mean Corpuscular Volume 97.1 fl (81-99); Monocytes # 0.5 10^3/uL (0.2-0.9); Monocytes % 9.2 %; Neutrophils # 3.65 10^3/uL (1.8-7.7); Neutrophils % 68.4 %; Nucleated Red Blood Cells % 0 %; Platelet Count 196 10^3/cmm (130-400); Red Blood Count 4.18 10^6/uL (4.1-5.3); Red Cell Distribution Width 12.7 % (12.1-15.1); White Blood Count 5.3 10^3/uL (4.0-10.0)
[2022-08-30 09:59] LABS: Alanine Aminotransferase 19 U/L (0-33); Albumin Level 3.7 g/dL (3.5-5.2); Alkaline Phosphatase 68 U/L (35-105); Anion Gap 13.1 (5-19); Aspartate Amino Transferase 19 U/L (0-32); Blood Urea Nitrogen 12 mg/dL (8-23); Calcium 8.8 mg/dL (8.5-10.5); Carbon Dioxide 26 mmol/L (22-29); Chloride 106 mmol/L (98-107); Globulin 2.7 g/dL (1.3-4.6); Glucose 103 mg/dL (65-115); Osmolality Calculated 292 mOsm/kg (285-295); Potassium 4.1 mmol/L (3.5-5.1); Sodium 141 mmol/L (136-145); Total Bilirubin 0.2 mg/dL (0.15-1.2); Total Protein 6.4 g/dL (6.6-8.7)
[2022-09-07 16:49] LABS: Chromogranin A LC/MS/MS 129 ng/mL (ADULTS: <311)
[2022-09-10 15:48] LABS: Serotonin Whole Blood <10 ng/mL (56-244)
[2022-09-13 15:25] LABS: 24 Hour Urine Volume 1750 mL; 5-HIAA, 24 Hour Urine 7.5 mg/24 h (< OR = 6.0)
== END 2022-08-30 08:36 | disposition home or self-care (01) ==
LOC: LAB 08:40
PROVIDERS: PCP Nurse Practitioner Family; Visit Provider Internal Medicine Medical Oncology
DX: C7A.090 Malignant carcinoid tumor of the bronchus and lung (principal)
CPT/HCPCS: 36415; 80053; 83497; 84260; 85025; 86316

== ENCOUNTER 2022-09-18 12:06 | Oncology outpatient (recurring) (ONCR) | payer MEDICARE, SELFPAY | END 2022-10-10 23:59 | disposition home or self-care (01) | PROVIDERS: PCP Nurse Practitioner Family; Visit Provider Internal Medicine Medical Oncology | DX: M72.2 Plantar fascial fibromatosis (principal); M20.41 Other hammer toe(s) (acquired), right foot; M20.42 Other hammer toe(s) (acquired), left foot; L85.1 Acquired keratosis [keratoderma] palmaris et plantaris; L60.3 Nail dystrophy; L84 Corns and callosities; Z92.3 Personal history of irradiation; C50.211 Malignant neoplasm of upper-inner quadrant of right female breast; Z90.2 Acquired absence of lung [part of] | CPT/HCPCS: 20550; 99214; J1100; J3301 ==

== ENCOUNTER 2022-10-25 16:20 | Oncology outpatient (recurring) (ONCR) | payer MEDICARE, SELFPAY | END 2022-11-07 23:59 | disposition home or self-care (01) | LOC: ONCMED 16:20 | PROVIDERS: PCP Nurse Practitioner Family; Visit Provider Internal Medicine Medical Oncology | DX: C50.811 Malignant neoplasm of overlapping sites of right female breast (principal); Z17.0 Estrogen receptor positive status [ER+]; R53.83 Other fatigue; N95.9 Unspecified menopausal and perimenopausal disorder; M25.59 Pain in other specified joint; Z79.818 Long term (current) use of other agents affecting estrogen receptors and estrogen levels; Z79.899 Other long term (current) drug therapy | CPT/HCPCS: 99214 ==

== ENCOUNTER → 2022-12-18 09:39 | Outpatient (BNVA) | payer MEDICARE, SELFPAY | PROVIDERS: PCP Nurse Practitioner Family; Visit Provider Podiatrist Foot & Ankle Surgery | DX: L85.1 Acquired keratosis [keratoderma] palmaris et plantaris (principal); M20.41 Other hammer toe(s) (acquired), right foot; M20.42 Other hammer toe(s) (acquired), left foot; L60.3 Nail dystrophy | CPT/HCPCS: 17110 ==

== ENCOUNTER 2023-02-19 08:59 | Oncology outpatient (recurring) (ONCR) | payer MEDICARE, SELFPAY | END 2023-03-09 23:59 | disposition home or self-care (01) | PROVIDERS: PCP Nurse Practitioner Family; Visit Provider Internal Medicine Medical Oncology | DX: C50.811 Malignant neoplasm of overlapping sites of right female breast (principal); Z17.0 Estrogen receptor positive status [ER+]; R53.0 Neoplastic (malignant) related fatigue; M25.59 Pain in other specified joint; Z79.818 Long term (current) use of other agents affecting estrogen receptors and estrogen levels; Z79.899 Other long term (current) drug therapy; R25.2 Cramp and spasm | CPT/HCPCS: 99214 ==

== ENCOUNTER → 2023-03-07 08:39 | Outpatient (BNVA) | payer MEDICARE, SELFPAY | PROVIDERS: PCP Nurse Practitioner Family; Visit Provider Podiatrist Foot & Ankle Surgery | DX: L84 Corns and callosities (principal); M20.41 Other hammer toe(s) (acquired), right foot; M20.42 Other hammer toe(s) (acquired), left foot; L85.1 Acquired keratosis [keratoderma] palmaris et plantaris; L60.3 Nail dystrophy | CPT/HCPCS: 99213 ==

== ENCOUNTER → 2023-06-06 09:05 | Outpatient (BNVA) | payer MEDICARE, SELFPAY | PROVIDERS: PCP Nurse Practitioner Family; Visit Provider Podiatrist Foot & Ankle Surgery | DX: M20.41 Other hammer toe(s) (acquired), right foot (principal); M20.42 Other hammer toe(s) (acquired), left foot; L85.1 Acquired keratosis [keratoderma] palmaris et plantaris; L84 Corns and callosities | CPT/HCPCS: 99213 ==

== ENCOUNTER 2023-08-20 07:45 | Outpatient (CLI) | payer MEDICARE, SELFPAY ==
--- NOTE | 2023-08-20 09:00 | CT_ITS ---
WS: [id number] CT CHEST, ABDOMEN, AND PELVIS TECHNIQUE: Contrast-enhanced CT of the chest, abdomen, and pelvis with coronal and sagittal reformatt ed images. CLINICAL INFORMATION: follow up COMPARISON: CT 08/11/22 DLP: 1720.[address] scans at [facility] use at least one of these dose optimization techniques: automated e xposure control; mA and/or kV adjustment per patient size (includes targeted exams where dose is matc hed to clinical indication); or iterative reconstruction. CT CHEST: Prior postoperative changes left upper lobectomy. Multiple stable subcentimeter pulmonary nodules u nchanged over multiple prior studies. No mediastinal or hilar lymphadenopathy. Pleural opacity right lower lobe measuring 8 mm is unchanged. A few noncalcified opacities in the right upper lobe anterior ly and right middle lobe are unchanged. Normal caliber thoracic aorta. Normal descending thoracic aorta. Small esophageal hernia. Prior bette cystectomy. Subsegmental atelectasis in right middle lobe. Stable right thyroid nodules. Normal calib er thoracic aorta. Surgical clips along the left hilum. No axillary lymphadenopathy. Hypertrophic gaby nges thoracic spine. CT ABDOMEN AND PELVIS: Diffuse fatty infiltration of the liver. Prior cholecystectomy. Small small low-attenuation lesions i n the liver. Normal spleen. Small esophageal hiatal hernia. Mild fatty atrophy of the pancreas. Breana l vein and splenic vein are patent. Adrenal glands are normal. Normal renal parenchymal enhancement. Small renal cysts. No hydronephrosis . Pelvic phleboliths. Normal caliber abdominal aorta. No abdominal or pelvic lymphadenopathy. No ingu inal lymphadenopathy. Normal sigmoid colon. IMPRESSION: 1. No evidence of metastatic disease in the chest abdomen or pelvis. 2. A few subcentimeter pulmonary nodules are unchanged from multiple prior examinations. 3. Diffuse fatty infiltration of the liver. 4. A few stable low-attenuation lesions in the liver likely hepatic cysts. 5. Prior cholecystectomy. 6. Prior left upper lobe lobectomy
[2023-08-20 09:12] LABS: Blood Urea Nitrogen 11 mg/dL (8-23)
[2023-08-20] MEDS: iohexol 350 mg/mL 500 mL Btl (per mL) IV (09:23)
[2023-08-20] MEDS: iohexol 350 mg/mL 500 mL Btl (per mL) PO (09:24)
== END 2023-08-20 07:46 | disposition home or self-care (01) ==
LOC: RAD 07:46
PROVIDERS: PCP Nurse Practitioner Family; Visit Provider Internal Medicine Medical Oncology
DX: C50.211 Malignant neoplasm of upper-inner quadrant of right female breast (principal); C7A.090 Malignant carcinoid tumor of the bronchus and lung; R91.8 Other nonspecific abnormal finding of lung field; Z90.2 Acquired absence of lung [part of]
CPT/HCPCS: 71260; 74177; 82565; 84520; Q9967

== ENCOUNTER 2023-08-27 10:05 | Outpatient (CLI) | payer MEDICARE, SELFPAY | END 2023-08-27 10:06 | disposition home or self-care (01) | LOC: LAB 10:07 | PROVIDERS: PCP Nurse Practitioner Family; Visit Provider Internal Medicine Medical Oncology | DX: M20.41 Other hammer toe(s) (acquired), right foot (principal); M20.42 Other hammer toe(s) (acquired), left foot; L85.1 Acquired keratosis [keratoderma] palmaris et plantaris; L84 Corns and callosities; C50.211 Malignant neoplasm of upper-inner quadrant of right female breast; C7A.090 Malignant carcinoid tumor of the bronchus and lung | CPT/HCPCS: 83497; 99213 ==

== ENCOUNTER 2023-08-29 13:41 | Oncology outpatient (recurring) (ONCR) | payer MEDICARE, SELFPAY ==
[2023-08-23 11:50] LABS: Basophils % 0.3 %; Eosinophils # 0.1 10^3/uL (0.0-0.8); Hematocrit 40.3 % (36-47); Lymphocytes # 1.3 10^3/uL (0.8-4.8); Lymphocytes % 20.7 %; Mean Corpuscular HGB Conc 32.8 g/dL (30-55); Mean Corpuscular Volume 97.6 fl (85-98); Mean Platelet Volume 8.8 fL (7.4-10.4); Monocytes # 0.5 10^3/uL (0.2-0.9); Monocytes % 7.8 %; Neutrophils # 4.39 10^3/uL (1.8-7.7); Neutrophils % 69.9 %; Nucleated Red Blood Cells % 0 %; Platelet Count 189 10^3/cmm (157-399); Red Blood Count 4.13 10^6/uL (3.85-5.65); Red Cell Distribution Width 12.8 % (12.1-15.1); White Blood Count 6.28 10^3/uL (3.29-11.43)
[2023-08-23 12:13] LABS: Alanine Aminotransferase 26 U/L (0-33); Albumin Level 3.9 g/dL (3.5-5.2); Alkaline Phosphatase 68 U/L (35-105); Anion Gap 11.1 (5-19); Aspartate Amino Transferase 25 U/L (0-32); Blood Urea Nitrogen 11 mg/dL (8-23); Calcium 8.8 mg/dL (8.5-10.5); Carbon Dioxide 29 mmol/L (22-29); Chloride 105 mmol/L (98-107); Globulin 2.7 g/dL (1.3-4.6); Glucose 104 mg/dL (65-115); Osmolality Calculated 292 mOsm/kg (285-295); Potassium 4.1 mmol/L (3.5-5.1); Sodium 141 mmol/L (136-145); Total Bilirubin 0.2 mg/dL (0.15-1.2); Total Protein 6.6 g/dL (6.6-8.7)
[2023-09-01 20:40] LABS: Chromogranin A LC/MS/MS 116 ng/mL (ADULTS: <311)
[2023-09-05 18:09] LABS: Serotonin Whole Blood 42 ng/mL (56-244)
== END 2023-09-09 23:59 | disposition home or self-care (01) ==
PROVIDERS: PCP Nurse Practitioner Family; Visit Provider Internal Medicine Medical Oncology
DX: C50.211 Malignant neoplasm of upper-inner quadrant of right female breast (principal); C7A.090 Malignant carcinoid tumor of the bronchus and lung; Z79.899 Other long term (current) drug therapy
CPT/HCPCS: 36415; 80053; 84260; 85025; 86316; 99214

== ENCOUNTER → 2023-10-29 10:42 | Outpatient (BNVA) | payer MEDICARE, SELFPAY | PROVIDERS: PCP Nurse Practitioner Family; Visit Provider Podiatrist Foot & Ankle Surgery | DX: M20.41 Other hammer toe(s) (acquired), right foot (principal); M20.42 Other hammer toe(s) (acquired), left foot; L85.1 Acquired keratosis [keratoderma] palmaris et plantaris; L84 Corns and callosities | CPT/HCPCS: 99213 ==

== ENCOUNTER → 2023-12-24 11:17 | Outpatient (BNVA) | payer MEDICARE, SELFPAY | PROVIDERS: PCP Nurse Practitioner Family; Visit Provider Podiatrist Foot & Ankle Surgery | DX: M20.41 Other hammer toe(s) (acquired), right foot; M20.42 Other hammer toe(s) (acquired), left foot; L85.1 Acquired keratosis [keratoderma] palmaris et plantaris; L84 Corns and callosities | CPT/HCPCS: 99213 ==

== ENCOUNTER 2024-03-03 12:45 | Oncology outpatient (recurring) (ONCR) | payer MEDICARE, SELFPAY | END 2024-03-09 23:59 | disposition home or self-care (01) | PROVIDERS: PCP Nurse Practitioner Family; Visit Provider Internal Medicine Medical Oncology | DX: C50.211 Malignant neoplasm of upper-inner quadrant of right female breast (principal); Z17.0 Estrogen receptor positive status [ER+]; Z92.21 Personal history of antineoplastic chemotherapy; Z92.3 Personal history of irradiation; Z90.2 Acquired absence of lung [part of]; Z79.810 Long term (current) use of selective estrogen receptor modulators (SERMs); R21 Rash and other nonspecific skin eruption; N64.59 Other signs and symptoms in breast; Z85.110 Personal history of malignant carcinoid tumor of bronchus and lung | CPT/HCPCS: 99213; 99214 ==

== ENCOUNTER 2024-03-14 14:32 | Outpatient (CLI) | payer MEDICARE, SELFPAY ==
--- NOTE | 2024-03-14 15:00 | XR_ITS ---
WS: [id number] SCREENING DEXA SCAN Unruly CLINICAL INFORMATION: on endocrine therapy COMPARISON: 03/25/2021 FINDINGS: The L1-L4 bone mineral density measures 1.46. This corresponds to a T score score of 2.2 and Z score of 2.8. Left femoral neck bone mineral density measures 1.091 g/cm2. This corresponds to a T score of 0.7 and Z score of 1.6. Right femoral neck bone mineral density measures 1.152 g/cm2. This corresponds to a T score 1.1of and Z score of 2.1. Mean femoral neck bone mineral density measures 1.122 g/cm2. This corresponds to a T score of 0.9 and Z score of 1.8. XR/XR DEXA axial skeleton* [id number] IMPRESSION: Normal bone mineralization. Patient's FRAX calculated 10 year probability for major osteoporotic fracture i s 8.5% and osteoporotic hip fracture is 2.0%. Bone mineral density lumbar spine decreased -3.4% Bone mineral density increased 1.7% femoral necks
== END 2024-03-14 14:33 | disposition home or self-care (01) ==
LOC: RAD 14:34
PROVIDERS: PCP Nurse Practitioner Family; Visit Provider Nurse Practitioner Family
DX: Z78.0 Asymptomatic menopausal state (principal); Z79.890 Hormone replacement therapy; C50.211 Malignant neoplasm of upper-inner quadrant of right female breast
CPT/HCPCS: 77080

== ENCOUNTER → 2024-04-28 12:55 | Outpatient (BNVA) | payer MEDICARE, SELFPAY | PROVIDERS: PCP Nurse Practitioner Family; Visit Provider Podiatrist Foot & Ankle Surgery | DX: M20.41 Other hammer toe(s) (acquired), right foot (principal); M20.42 Other hammer toe(s) (acquired), left foot; L84 Corns and callosities | CPT/HCPCS: 99213 ==

== ENCOUNTER → 2024-07-14 13:01 | Outpatient (BNVA) | payer MEDICARE, SELFPAY | PROVIDERS: PCP Nurse Practitioner Family; Visit Provider Podiatrist Foot & Ankle Surgery | DX: M20.41 Other hammer toe(s) (acquired), right foot (principal); M20.42 Other hammer toe(s) (acquired), left foot; L84 Corns and callosities | CPT/HCPCS: 99213 ==

== ENCOUNTER 2024-08-18 15:00 | Oncology outpatient (recurring) (ONCR) | payer MEDICARE, SELFPAY ==
[2024-08-11] MEDS: iohexol 350 mg/mL 500 mL Btl (per mL) PO (14:46)
--- NOTE | 2024-08-11 15:00 | CTR_ITS ---
PROCEDURE INFORMATION: Exam: CT Chest With Contrast; Diagnostic Exam date and time: 08/11/2024 3:11 PM Age: 73 years old Clinical indication: Condition or disease; Other: Breast and lung cancer; Prior surgery; Surgery date: 6+ months; Surgery type: RT breast, left lung, gb; Additional info: Surveillance TECHNIQUE: Imaging protocol: Diagnostic computed tomography of the chest with contrast. Radiation optimization: All CT scans at this facility use at least one of these dose optimization techniques: automated exposure control; mA and/or kV adjustment per patient size (includes targeted exams where dose is matched to clinical indication); or iterative reconstruction. Contrast material: OMNI 350; Contrast volume: 100 ml; Contrast route: INTRAVENOUS (IV); COMPARISON: CT chest abdpel w/*[id number] 08/20/2023 9:15 AM RADIATION DOSE METRICS: Total DLP (mGy-cm): 1666.54 FINDINGS: Thyroid: Right thyroid nodules remain unchanged. Lungs: Stable surgical changes left lung. Unchanged scarring. Again noted are a few noncalcified pulmonary nodules bilaterally. A few appears slightly increased in size. Otherwise, unremarkable. Pleural spaces: Unremarkable. No pneumothorax. No pleural effusion. Heart: Unremarkable. No cardiomegaly. No pericardial effusion. Coronary arteries: No calcification in the visualized coronary arteries. Lymph nodes: Unremarkable. No enlarged lymph nodes. Vasculature: Unremarkable. No aortic aneurysm. Bones/joints: Unchanged mild scoliosis. Unchanged thoracic spondylosis and partial ankylosis. Otherwise, unremarkable. Soft tissues: No significant chest wall abnormality. Otherwise, unremarkable soft tissues. Chest at 3-6 months, then CT Chest at 18-24 months. (Reference: [facility]). 2. No other new or acute thoracic findings. 3. Additional details as above. REFERENCES: [facility] Morelos et al. Guidelines for Management of Incidental Pulmonary Nodules Detected on CT Images: From the Fleischner Society 2017. Radiology. 2017;284(1):228-243. PROCEDURE INFORMATION: Exam: CT Abdomen And Pelvis With Contrast Exam date and time: 08/11/2024 3:11 PM Age: 73 years old Clinical indication: Condition or disease; Other: Breast and lung cancer; Prior surgery; Surgery date: 6+ months; Surgery type: RT breast, left lung, gb; Additional info: Surveillance TECHNIQUE: Imaging protocol: Computed tomography of the abdomen and pelvis with contrast. Radiation optimization: All CT scans at this facility use at least one of these dose optimization techniques: automated exposure control; mA and/or kV adjustment per patient size (includes targeted exams where dose is matched to clinical indication); or iterative reconstruction. Contrast material: OMNI 350; Contrast volume: 100 ml; Contrast route: INTRAVENOUS (IV); COMPARISON: CT chest abdpel w/*[id number] 08/20/2023 9:15 AM RADIATION DOSE METRICS: Total DLP (mGy-cm): 1666.54 FINDINGS: Lungs: See separate report. Liver: Unchanged mild, diffuse fatty infiltration of the liver. A tiny low-density lesion in the dome of the liver remains unchanged, so is considered benign. Otherwise, unremarkable. Gallbladder and biliary ducts: Unchanged cholecystectomy. Unremarkable bile ducts. Pancreas: Normal. No ductal dilation. Spleen: Normal. No splenomegaly. Adrenal glands: Normal. No mass. Kidneys and ureters: A few small renal cysts are not significantly changed, and need no follow-up. Unchanged small nonobstructing calculus lower right kidney. Unchanged small parenchymal scar lower left kidney. Otherwise, unremarkable. Stomach and bowel: Question new soft tissue mass in the body of the stomach measuring 7 cm in maximum dimension versus food material. Again noted are diverticula from the colon. No diverticulitis. Otherwise, unremarkable. Appendix: No evidence of appendicitis. Intraperitoneal space: Unremarkable. No free air. No significant fluid collection. Vasculature: Unchanged tiny amount of arterial calcification. Unchanged retroaortic left renal vein is a normal congenital variant. Unchanged calcified phleboliths in the pelvis. Otherwise, unremarkable. Lymph nodes: Unremarkable. No enlarged lymph nodes. Urinary bladder: Unremarkable as visualized. Reproductive: Unremarkable as visualized. Bones/joints: Mild scoliosis. Mild lumbar spondylosis. Unchanged sclerotic area in left iliac bone. Further unchanged since 2021, so is highly likely to be benign. Soft tissues: Otherwise, unremarkable visualized body wall. Otherwise, unremarkable soft tissues. CT/CT chest abdpel w/*[id number] IMPRESSION: 1. Again noted are a few noncalcified pulmonary nodules bilaterally. A few appear slightly increased in size. For patients at low risk (minimal or absent history of smoking and of other known risk factors), recommend CT Chest at 3-6 months, then consider CT Chest at 18-24 months. For patients at high risk (history of smoking or of other known risk factors), recommend CT IMPRESSION: 1. Question new soft tissue mass in the body of the stomach measuring 7 cm in maximum dimension versus food material. Upper endoscopy for this is recommended. 2. No other new or acute abdominal or pelvic findings. 3. Additional details as above.
[2024-08-11 15:12] LABS: Blood Urea Nitrogen 12 mg/dL (8-23)
[2024-08-11] MEDS: iohexol 350 mg/mL 500 mL Btl (per mL) IV (15:19)
[2024-08-18 15:22] LABS: Basophils % 0.5 %; Eosinophils # 0.1 10^3/uL (0.0-0.8); Eosinophils % 0.9 %; Hematocrit 41.1 % (36-47); Lymphocytes # 1.7 10^3/uL (0.8-4.8); Lymphocytes % 26.2 %; Mean Corpuscular HGB Conc 33.3 g/dL (30-55); Mean Corpuscular Hemoglobin 32.3 pg (27-33); Mean Corpuscular Volume 96.9 fl (85-98); Mean Platelet Volume 8.7 fL (7.4-10.4); Monocytes # 0.6 10^3/uL (0.2-0.9); Monocytes % 9.2 %; Neutrophils # 4.03 10^3/uL (1.8-7.7); Neutrophils % 62.7 %; Nucleated Red Blood Cells % 0 %; Platelet Count 194 10^3/cmm (157-399); Red Blood Count 4.24 10^6/uL (3.85-5.65); Red Cell Distribution Width 12.5 % (12.1-15.1); White Blood Count 6.42 10^3/uL (3.29-11.43)
[2024-08-18 15:33] LABS: Alanine Aminotransferase 23 U/L (0-33); Albumin Level 4.2 g/dL (3.5-5.2); Alkaline Phosphatase 75 U/L (35-105); Blood Urea Nitrogen 11 mg/dL (8-23); Calcium 9.4 mg/dL (8.5-10.5); Carbon Dioxide 29 mmol/L (22-29); Chloride 103 mmol/L (98-107); Creatinine Clr Calc Pharmacy 87.1772; Globulin 2.9 g/dL (1.3-4.6); Glucose 113 mg/dL (65-115); Osmolality Calculated 294 mOsm/kg (285-295); Sodium 142 mmol/L (136-145); Total Bilirubin 0.2 mg/dL (0.15-1.2); Total Protein 7.1 g/dL (6.6-8.7)
[2024-08-18 15:55] LABS: Anion Gap 13.8 (5-19); Aspartate Amino Transferase 26 U/L (0-32); Potassium 3.8 mmol/L (3.5-5.1)
[2024-08-20 22:01] LABS: 24 Hour Urine Volume 1100 mL; 5-HIAA, 24 Hour Urine 1.8 mg/24 h (< OR = 6.0)
[2024-08-23 14:44] LABS: Serotonin Whole Blood 41 ng/mL (56-244)
[2024-08-28 22:10] LABS: Chromogranin A LC/MS/MS 84 ng/mL (ADULTS: <311)
== END 2024-09-09 23:59 | disposition home or self-care (01) ==
PROVIDERS: Absent Provider Nurse Practitioner Family; PCP Nurse Practitioner Family; Visit Provider Internal Medicine Medical Oncology
DX: C50.211 Malignant neoplasm of upper-inner quadrant of right female breast; C7A.090 Malignant carcinoid tumor of the bronchus and lung; Z53.9 Procedure and treatment not carried out, unspecified reason
CPT/HCPCS: 36415; 71260; 74177; 80053; 82565; 83497; 84260; 84520; 85025; 86316; 99214

== ENCOUNTER → 2024-10-20 09:26 | Outpatient (BNVA) | payer MEDICARE, SELFPAY | PROVIDERS: PCP Nurse Practitioner Family; Visit Provider Podiatrist Foot & Ankle Surgery | DX: L84 Corns and callosities (principal); M20.41 Other hammer toe(s) (acquired), right foot; M20.42 Other hammer toe(s) (acquired), left foot; M79.671 Pain in right foot; M79.672 Pain in left foot | CPT/HCPCS: 99213 ==

== ENCOUNTER 2024-11-24 14:38 | Oncology outpatient (recurring) (ONCR) | payer MEDICARE, SELFPAY ==
--- NOTE | 2024-11-20 16:00 | CTR_ITS ---
PROCEDURE INFORMATION: Exam: CT Chest With Contrast; Diagnostic Exam date and time: 11/20/2024 4:19 PM Age: 74 years old Clinical indication: Condition or disease; Other: Breast and lung cancer; Prior surgery; Surgery date: 6+ months; Surgery type: Left lung, right breast lumpectomy; Additional info: Surveillance TECHNIQUE: Imaging protocol: Diagnostic computed tomography of the chest with contrast. Radiation optimization: All CT scans at this facility use at least one of these dose optimization techniques: automated exposure control; mA and/or kV adjustment per patient size (includes targeted exams where dose is matched to clinical indication); or iterative reconstruction. Contrast material: OMNI 350; Contrast volume: 100 ml; Contrast route: INTRAVENOUS (IV); COMPARISON: CT chest abdpel w/*[id number] 08/11/2024 3:11 PM RADIATION DOSE METRICS: Total DLP (mGy-cm): 653.79 FINDINGS: Thyroid: Stable right thyroid nodule. Lungs: Stable surgical changes left lung. Small amounts of scarring are unchanged. A few small solid noncalcified pulmonary nodules bilaterally are not significantly changed. Pleural spaces: Unremarkable. No pneumothorax. No pleural effusion. Heart: Unremarkable. No cardiomegaly. No pericardial effusion. Coronary arteries: No calcification in the visualized coronary arteries. Lymph nodes: Unremarkable. No enlarged lymph nodes. Vasculature: Unremarkable. No aortic aneurysm. Liver: Unchanged diffuse fatty infiltration of the liver. Gallbladder and biliary ducts: Unchanged cholecystectomy. Stomach: Unchanged appearance of the stomach. Unchanged tiny benign low-density lesion in the dome of the liver. Bones/joints: Nothing acute. No change. Soft tissues: No significant body wall abnormality. Otherwise, unremarkable soft tissues. Other findings: Otherwise, unremarkable visualized upper abdominal structures. CT/CT chest w con* [id number] IMPRESSION: 1. A few small solid noncalcified pulmonary nodules bilaterally are not significantly changed. For patients at low risk (minimal or absent history of smoking and of other known risk factors), no routine follow-up is indicated. For patients at high risk (history of smoking or of other known risk factors), consider optional CT Chest at 12 months. (Reference: [place]) 2. No acute findings. 3. Additional details as above. Unchanged. REFERENCES: [place] Morelos et al. Guidelines for Management of Incidental Pulmonary Nodules Detected on CT Images: From the Fleischner Society 2017. Radiology. 2017;284(1):228-243.
[2024-11-20 16:27] LABS: Basophils % 0.4 %; Eosinophils # 0.1 10^3/uL (0.0-0.8); Eosinophils % 1.3 %; Hematocrit 36.8 % (36-47); Lymphocytes # 1.2 10^3/uL (0.8-4.8); Lymphocytes % 22.8 %; Mean Corpuscular HGB Conc 33.4 g/dL (30-55); Mean Corpuscular Hemoglobin 32.7 pg (27-33); Mean Corpuscular Volume 97.9 fl (85-98); Mean Platelet Volume 8.7 fL (7.4-10.4); Monocytes # 0.5 10^3/uL (0.2-0.9); Monocytes % 9.6 %; Neutrophils # 3.57 10^3/uL (1.8-7.7); Neutrophils % 65.7 %; Nucleated Red Blood Cells % 0 %; Platelet Count 172 10^3/cmm (157-399); Red Blood Count 3.76 10^6/uL (3.85-5.65); Red Cell Distribution Width 13.2 % (12.1-15.1); White Blood Count 5.43 10^3/uL (3.29-11.43)
[2024-11-20] MEDS: iohexol 350 mg/mL 500 mL Btl (per mL) IV (16:35)
[2024-11-20 16:49] LABS: Alanine Aminotransferase 23 U/L (0-33); Albumin Level 3.7 g/dL (3.5-5.2); Alkaline Phosphatase 61 U/L (35-105); Anion Gap 10.7 (5-19); Aspartate Amino Transferase 25 U/L (0-32); Blood Urea Nitrogen 12 mg/dL (8-23); Calcium 8.5 mg/dL (8.5-10.5); Carbon Dioxide 29 mmol/L (22-29); Chloride 104 mmol/L (98-107); Globulin 2.7 g/dL (1.3-4.6); Glucose 116 mg/dL (65-115); Osmolality Calculated 291 mOsm/kg (285-295); Potassium 3.7 mmol/L (3.5-5.1); Sodium 140 mmol/L (136-145); Total Bilirubin 0.2 mg/dL (0.15-1.2); Total Protein 6.4 g/dL (6.6-8.7)
[2024-11-29 17:16] LABS: Chromogranin A LC/MS/MS 122 ng/mL (ADULTS: <311)
[2024-12-04 14:44] LABS: Serotonin Whole Blood 64 ng/mL (56-244)
== END 2024-12-08 23:59 | disposition home or self-care (01) ==
PROVIDERS: Absent Provider Nurse Practitioner Family; PCP Nurse Practitioner Family; Visit Provider Internal Medicine Medical Oncology
DX: C50.211 Malignant neoplasm of upper-inner quadrant of right female breast (principal); Z17.0 Estrogen receptor positive status [ER+]; Z85.118 Personal history of other malignant neoplasm of bronchus and lung; Z92.21 Personal history of antineoplastic chemotherapy; Z92.3 Personal history of irradiation; Z79.810 Long term (current) use of selective estrogen receptor modulators (SERMs)
CPT/HCPCS: 71260; 80053; 84260; 85025; 86316; 99214

== ENCOUNTER → 2024-12-22 09:04 | Outpatient (BNVA) | payer MEDICARE, SELFPAY | PROVIDERS: PCP Nurse Practitioner Family; Visit Provider Podiatrist Foot & Ankle Surgery | DX: L84 Corns and callosities (principal); M20.41 Other hammer toe(s) (acquired), right foot; M20.42 Other hammer toe(s) (acquired), left foot; M79.671 Pain in right foot; M79.672 Pain in left foot | CPT/HCPCS: 99213 ==

== ENCOUNTER 2025-01-16 09:28 | Outpatient (CLI) | payer MEDICARE, SELFPAY ==
[2025-01-16 09:33] VITALS: BMI 40.4
--- NOTE | 2025-01-16 09:34 | ECG_ITS ---
[facility] Test Date: 2025-01-16 Pat Name: Sammi Harrell Department: Room: Gender: Female Associate Media Director: : 1950 Requested By: Camila Diop Order Number: [id number] Garcia MD: Jaye Cooper M.D. Interpretive Statements Lung unchanged pre/post procedure; Intraprocedure shortess of breath; Symptoms resoled by discharge PROCEDURE: At the baseline, the EKG revealed normal sinus rhythm with a normal ST Ts. The baseline heart was 69 bpm with a blood pressue of 154/106 mm of Hg Lexiscan was infused over a period of 20 seconds. A total of 0.4 milligrams of Lexiscan was infused. The stress phase was continued for a total of 5 minutes. Heart rate at the end of the stress phase was 79 bpm with a blood pressure 157/79 mm of Hg. The EKG at the peak infusion revealed no significant changes. Sestamibi was injected 20 seconds after the Lexiscan infusion. Heart rate at the end of the recovery phase was 82 bpm with a blood pressure of 153/80 mm of Hg. CONCLUSION: 1. No significant EKG changes with the LexiScan infusion 2. No LexiScan induced chest pain or cardiac arrhythmia 3. Normal blood pressure and heart rate response 4. Sestamibi/sestamibi perfusion scan pending; see separate report. Electronically Signed On 01-19-2025 11:29:33 CDT by Jaye Cooper M.D. [email or web address]
--- NOTE | 2025-01-16 09:34 | NMCV_ITS ---
NM martin perf SPECT r/s* [id number] Sammi Harrell Age: 74 Gender: F : 1950 Exam Date: 01/16/2025 10:25 Ordering Phys: Camila Diop NP Technologist: CALLI Denny Exam Location: [facility] Indications: cp STRESS TEST Please see separate stress test report in [facility] for full findings IMAGE PROTOCOL Rest/Stress 1 Lexiscan Day Radiopharmaceutical Dose (mCi) Administration Site Administered by Rest: Tc-99m 10.8 IV Abbey Read, RADIOLOGY EQUIPMENT SERVICER Sestamibi Stress:Tc-99m 32.4 IV Abbey Zarategle, RADIOLOGY EQUIPMENT SERVICER Sestamibi Rest: 16-Jan-2025 60 Discovery 630 Stress: 16-Jan-2025 30 Discovery 630 0.4mg Lexiscan. Supine position only as patient was unable to lay prone. SPECT RESULTS Technical Quality: Good Raw Data Analysis: Breast attenuation Image Corrections: No attenuation or motion correction applied Summed Stress Score: 9 Summed Rest Score: 10 Summed Difference Score: 0 PERFUSION FINDINGS Moderate area of minimal to moderately decreased tracer uptake involving the inferior, inferolateral and apical regions. No significant reversibility was noted in these regions. FUNCTIONAL RESULTS (calculated via Gated SPECT) Stress Image LV EF (%): 73 Stress EDV (mL):101 TID: 0.68 Stress ESV (mL):27 FUNCTIONAL FINDINGS: Segmental wall motion analysis revealing no gross wall motion abnormalities IMPRESSIONS 1. Myocardial perfusion imaging revealing moderate area of minimal to moderately decreased persistent tracer uptake involving the inferior, inferolateral and apical regions suggesting myocardial scarring versus attenuation artifact 2. Normal LV ejection fraction of 73%. 3. LV wall motion analysis revealing no gross wall motion abnormalities. 4. Normal LV volume Low probability for coronary ischemia, based on the above findings Dr Jaye Cooper MD [facility] (Electronically Signed) Final Date: 16 Jan 2025 16:13 S
[2025-01-16] MEDS: regadenoson 0.4 Mg/5 ml Syringe IVP (11:09)
[2025-01-16 11:22] VITALS: BP 153/80; PULSE 80
--- NOTE | 2025-01-16 12:12 | USCV_ITS ---
Sammi Harrell Age: 74 Gender: F : 1950 Exam Date: 01/16/2025 12:17 Ordering Phys: Camila Diop NP Technologist: KUNAL Exam Location: [facility] – [place], [place] Indication: SoB BP: 125 / 80 HR: 64 Rhythm: Sinus Technical Quality: Adequate MEASUREMENTS (Male / Female) Normal Values 2D ECHO LV Diastolic Diameter PLAX 5.2 cm 4.2 - 5.9 / 3.9 - 5.3 cm IVS Diastolic Thickness 0.9 cm 0.6 - 1.0 / 0.6 - 0.9 cm IVS Systolic Thickness 1.6 cm LVPW Diastolic Thickness 0.9 cm 0.6 - 1.0 / 0.6 - 0.9 cm LVPW Systolic Thickness 1.6 cm LVOT Diameter 2.1 cm LV Ejection Fraction 2D Teich 54.9 % LV Ejection Fraction MOD 4C 53.5 % LV Ejection Fraction MOD 2C 61.8 % LV Ejection Fraction 2C AL 64.1 % LA Diameter 3.9 cm RA Systolic Volume 4C AL 36.5 ml RA Systolic Volume 4C MOD 34.0 ml Aorta at Sinotubular Diameter 3.0 cm M-MODE LA Ao Ratio MM 1.3 AV Cusp Separation MM 1.8 cm DOPPLER AV Peak Velocity 149.0 cm/s LVOT Peak Velocity 101.0 cm/s AV Area Cont Eq vti 2.1 cm squared AV Area Cont Eq pk 2.3 cm squared MV Peak Velocity 91.0 cm/s MV Area PHT 3.1 cm squared Mitral E to A Ratio 0.6 TR Peak Velocity 133.0 cm/s TR Peak Gradient 7.1 mmHg TV Peak E Velocity 63.0 cm/s PV Peak Velocity 140.0 cm/s FINDINGS Left Ventricle Normal left ventricular size and systolic function, EF 55% (visual).no regional wall motion abnormalities. Grade I/IV diastolic dysfunction (abnormal relaxation filling pattern), normal to mildly elevated filling pressures. Right Ventricle Normal right ventricular size and systolic function. Right Atrium The right atrium is normal in size. Left Atrium Mildly increased left atrial size. Mitral Valve No gross abnormalities noted Aortic Valve Thickened aortic valve. Tricuspid Valve Tricuspid valve not well visualized. Pulmonic Valve Pulmonic valve not well visualized. Pericardium No pericardial effusion. Aorta Normal aortic annulus size. IVC The inferior vena cava appears normal. CONCLUSIONS Normal left ventricular size and systolic function, EF 55% (visual). No regional wall motion abnormalities. Grade I/IV diastolic dysfunction (abnormal relaxation filling pattern), normal to mildly elevated filling pressures. Thickened aortic valve. Mildly increased left atrial size. There is no pericardial effusion. No similar previous studies are available for comparison Dr Jaye Cooper MD [facility] (Electronically Signed) Final Date: 18 Jan 2025 13:29 S
== END 2025-01-16 09:29 | disposition home or self-care (01) ==
LOC: CDL 09:29
PROVIDERS: PCP Nurse Practitioner Family; Visit Provider Nurse Practitioner Family
DX: R06.02 Shortness of breath (principal); R53.83 Other fatigue; R93.1 Abnormal findings on diagnostic imaging of heart and coronary circulation; I51.7 Cardiomegaly; I35.8 Other nonrheumatic aortic valve disorders
CPT/HCPCS: 36415; 78452; 93017; 93306; 96374; A9500; J2785

== ENCOUNTER → 2025-03-02 11:16 | Outpatient (BNVA) | payer MEDICARE, SELFPAY | PROVIDERS: PCP Nurse Practitioner Family; Visit Provider Podiatrist Foot & Ankle Surgery | DX: L84 Corns and callosities (principal); M20.41 Other hammer toe(s) (acquired), right foot; M20.42 Other hammer toe(s) (acquired), left foot | CPT/HCPCS: 99213 ==

== ENCOUNTER 2025-05-01 07:17 | Oncology outpatient (recurring) (ONCR) | payer MEDICARE, SELFPAY ==
[2025-05-01] MEDS: iohexol 350 mg/mL 500 mL Btl (per mL) IV (07:27)
[2025-05-01] MEDS: iohexol 350 mg/mL 500 mL Btl (per mL) PO (07:28)
--- NOTE | 2025-05-01 08:30 | CT_ITS ---
WS: [id number] CT ABDOMEN AND PELVIS WITH CONTRAST HISTORY: infiltrating ductal carcinoma of upper-inner quadrant TECHNIQUE: Imaging performed of the abdomen and pelvis with IV contrast. Single phase imaging of the abdomen. Coronal and sagittal reformats are submitted. All CT scans at [facility] use at least one of these dose optimization techniques: automated exposure control; mA and/or kV adjustment per patient size (includes targeted exams where dose is matched to clinical indication); or iterative reconstruction. IV CONTRAST: Omnipaque 350; 100 mL IV. Oral contrast: Yes. DLP: 1074.43 mGy.cm COMPARISON: 08/20/2023, 01/19/2025 and 08/11/2024 Lower thorax: Subpleural nodule RIGHT lung base is stable since 08/20/2023. No new mass or nodule. Heart is normal size. Small hiatal hernia. Liver/biliary system: Normal size liver. Stable 6 mm hypodensity in the superior RIGHT lobe of the liver. Subcapsular 10 mm low-attenuation mass in the LEFT lobe of the liver has increased in size since 08/11/2024. No intrahepatic duct dilatation. Gallbladder: Status post cholecystectomy. Pancreas: Well-circumscribed low-attenuation mass measuring 2.2 x 2.0 cm in the body of the pancreas. No pancreatic atrophy. No duct dilatation. Spleen: Normal size spleen. No mass or infarct. Adrenal glands: Normal. Right kidney: Normal. Left kidney: Several small cortical hypodensities with the largest in the lower pole measuring 11 mm which are unchanged. No solid mass or obstruction. Aorta: Mild atherosclerosis. Retroaortic LEFT renal vein. Lymphadenopathy: None. Free fluid: None. GI tract: No obstruction. No small bowel obstruction. Mild scattered diverticular disease. Normal appendix. Abdominal wall: Fat containing umbilical hernia. Pelvis: No free fluid or adenopathy within the pelvis. Uterus is present and midline. No pelvic mass. Bones: Unremarkable. CT/CT abdomen pelvis w con* [id number] IMPRESSION: 1. 2 liver lesions identified. The larger subcapsular 10 mm low-attenuation ma ss may be a cyst but is increased in size since 08/11/2024. 2. Status post cholecystectomy. 3. Low-attenuation well-circumscribed mass in the pancreatic body measures 2.2 x 2.0 cm. No pancreatic duct dilatation. Differential includes pancreatic cyst , pseudocyst or cystic neoplasm. Recommend follow-up PET/CT imaging. PET/CT catrachito ging would also evaluate the subcapsular 10 mm lesion in the liver. 4. No GI tract obstruction. 5. No ascites or adenopathy.
[2025-05-01 08:34] LABS: Blood Urea Nitrogen 11 mg/dL (8-23)
== END 2025-05-10 23:59 | disposition home or self-care (01) ==
LOC: RAD 07:18 → ONCMED 08:49
PROVIDERS: Absent Provider Nurse Practitioner Family; PCP Nurse Practitioner Family; Visit Provider Internal Medicine Medical Oncology
DX: C50.211 Malignant neoplasm of upper-inner quadrant of right female breast (principal); Z17.0 Estrogen receptor positive status [ER+]; Z85.118 Personal history of other malignant neoplasm of bronchus and lung; Z92.21 Personal history of antineoplastic chemotherapy; Z92.3 Personal history of irradiation; Z79.810 Long term (current) use of selective estrogen receptor modulators (SERMs); C7A.090 Malignant carcinoid tumor of the bronchus and lung
CPT/HCPCS: 74177; 82565; 84520

== ENCOUNTER → 2025-05-04 10:49 | Outpatient (BNVA) | payer MEDICARE, SELFPAY | PROVIDERS: PCP Nurse Practitioner Family; Visit Provider Podiatrist Foot & Ankle Surgery | DX: L84 Corns and callosities (principal); M20.41 Other hammer toe(s) (acquired), right foot; M20.42 Other hammer toe(s) (acquired), left foot; L85.1 Acquired keratosis [keratoderma] palmaris et plantaris | CPT/HCPCS: 99213 ==

== ENCOUNTER 2025-06-05 17:00 | Oncology outpatient (recurring) (ONCR) | payer MEDICARE, SELFPAY ==
[2025-05-25 13:43] LABS: Hematocrit 40.3 % (36-47); Hemoglobin 13.30 g/dL (11.27-16.99); Mean Corpuscular HGB Conc 33.0 g/dL (30-55); Mean Corpuscular Hemoglobin 31.8 pg (27-33); Mean Corpuscular Volume 96.4 fl (85-98); Nucleated Red Blood Cells % 0 %; Platelet Count 192 10^3/cmm (157-399); Red Blood Count 4.18 10^6/uL (3.85-5.65); White Blood Count 6.54 10^3/uL (3.29-11.43)
[2025-05-25 13:54] LABS: Alanine Aminotransferase 18 U/L (0-33); Albumin Level 4.0 g/dL (3.5-5.2); Alkaline Phosphatase 75 U/L (35-105); Anion Gap 13.1 (5-19); Aspartate Amino Transferase 20 U/L (0-32); Blood Urea Nitrogen 11 mg/dL (8-23); Calcium 9.0 mg/dL (8.5-10.5); Carbon Dioxide 30 mmol/L (22-29); Chloride 103 mmol/L (98-107); Globulin 2.9 g/dL (1.3-4.6); Glucose 113 mg/dL (65-115); Osmolality Calculated 294 mOsm/kg (285-295); Potassium 4.1 mmol/L (3.5-5.1); Sodium 142 mmol/L (136-145); Total Protein 6.9 g/dL (6.6-8.7)
--- NOTE | 2025-06-05 17:00 | PETR_ITS ---
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 Then, PET images were obtained. Attenuation corrected images were constructed using the CT scan. Fused images of PET and CT were reviewed. The standardized uptake values (SUV) reported below are maximum values within a region of interest, expressed in gm/ml. Exam includes orbital meatal line to mid-thigh. SUV normalization method: BodyWeight Radiopharmaceutical: 11.4 mCi F-18 FDG (Fluorodeoxyglucose), IV. Time of imaging post radiopharmaceutical administration: 49 minutes Injection site: RAC COMPARISON: 1. CT chest abdpel w/*[id number] 08/11/2024 3:[address] abdomen pelvis w con* [id number] 05/01/2025 8:[address] chest w con* [id number] 11/20/2024 4:19 PM FINDINGS: Brain: Visualized brain has normal physiologic uptake. Pharynx: No abnormal uptake. Larynx: No abnormal uptake. Lungs, pleura and trachea: No abnormal uptake. Prior left upper lobectomy. Mild subpleural anterolateral right upper lobe reticulation likely representing posttreatment sequela. Bilateral platelike atelectasis versus scarring. Stable non FDG avid 7 mm right middle lobe nodule on axial image 99. Couple stable left lung pulmonary micronodules on axial images 100 and 109. Heart: Normal physiologic uptake. Mediastinal space: No abnormal uptake. Liver: No abnormal uptake. Hepatic hypodensities of concern are barely perceptible on this exam, grossly stable from August 2024. Gallbladder and biliary ducts: No abnormal uptake. Prior cholecystectomy. Pancreas: No abnormal uptake. Intervally stable 2.1 cm pancreatic body cystic lesion, previously 1.5 cm in August 2024. Spleen: No abnormal uptake. Adrenal glands: No abnormal uptake. Kidneys and ureters: Normal physiologic uptake. Stomach and bowel: No abnormal uptake. Colonic diverticulosis without findings of diverticulitis. Vasculature: No abnormal uptake. Mild systemic atherosclerotic calcification without aortic aneurysm. Retroaortic left renal vein. Lymph nodes: Mildly prominent left submandibular node measures 6 mm in the short axis on axial image 44 and shows SUV max 4.5. Skeleton: Degenerative change along the spine and acromioclavicular joints. Soft tissues: Low-level posterior right upper arm and bilateral buttock musculature FDG uptake without underlying CT abnormality is likely physiologic activation or strain. Right breast surgical clips. METRICS: Mediastinal blood pool: SUV mean 2.0 Liver uptake: SUV mean 2.6 PET/PET skull to thigh SUBS [id number] IMPRESSION: 1. Intervally stable non FDG avid 2.1 cm pancreatic body cystic lesion, previously 1.6 cm in August 2024. Consider further evaluation with EUS/FNA or pancreatic MRI/MRCP without and with contrast. 2. Subcentimeter hepatic hypodensities of concern are barely perceptible on this exam, grossly stable from August 2024, favoring benignity. 3. Mild left submandibular lymphadenopathy is nonspecific but favored to be reactive. 4. Stable subcentimeter non FDG avid pulmonary nodules, to include index 7 mm right middle lobe nodule. 5. Additional chronic and incidental findings as above.
== END 2025-06-09 23:59 | disposition home or self-care (01) ==
LOC: ONCMED 06-08 09:14
PROVIDERS: Nurse Practitioner Family; Absent Provider Nurse Practitioner Family; PCP Nurse Practitioner Family; Visit Provider Internal Medicine Medical Oncology
DX: C7A.090 Malignant carcinoid tumor of the bronchus and lung; K86.89 Other specified diseases of pancreas; R93.2 Abnormal findings on diagnostic imaging of liver and biliary tract; R59.0 Localized enlarged lymph nodes; R91.8 Other nonspecific abnormal finding of lung field; Z98.890 Other specified postprocedural states; Z90.49 Acquired absence of other specified parts of digestive tract; K57.30 Diverticulosis of large intestine without perforation or abscess without bleeding; I70.0 Atherosclerosis of aorta; N28.89 Other specified disorders of kidney and ureter; M47.9 Spondylosis, unspecified; M19.012 Primary osteoarthritis, left shoulder; M19.011 Primary osteoarthritis, right shoulder; M79.89 Other specified soft tissue disorders; Z53.9 Procedure and treatment not carried out, unspecified reason
CPT/HCPCS: 36415; 78815; 80053; 85025; 99214; A9552

== ENCOUNTER → 2025-07-06 09:04 | Outpatient (BNVA) | payer MEDICARE, SELFPAY | PROVIDERS: PCP Nurse Practitioner Family; Visit Provider Podiatrist Foot & Ankle Surgery | DX: L84 Corns and callosities (principal); M20.41 Other hammer toe(s) (acquired), right foot; M20.42 Other hammer toe(s) (acquired), left foot; L85.1 Acquired keratosis [keratoderma] palmaris et plantaris | CPT/HCPCS: 99213 ==

== ENCOUNTER 2025-08-24 13:30 | Oncology outpatient (recurring) (ONCR) | payer MEDICARE, SELFPAY ==
[2025-08-17 10:46] LABS: Hematocrit 39.5 % (36-47); Hemoglobin 13.10 g/dL (11.27-16.99); Mean Corpuscular HGB Conc 33.2 g/dL (30-55); Mean Corpuscular Hemoglobin 31.7 pg (27-33); Mean Corpuscular Volume 95.6 fl (85-98); Nucleated Red Blood Cells % 0 %; Platelet Count 183 10^3/cmm (157-399); Red Blood Count 4.13 10^6/uL (3.85-5.65); White Blood Count 6.28 10^3/uL (3.29-11.43)
[2025-08-17 11:10] LABS: Alanine Aminotransferase 19 U/L (0-33); Albumin Level 4.0 g/dL (3.5-5.2); Alkaline Phosphatase 66 U/L (35-105); Anion Gap 14.1 (5-19); Aspartate Amino Transferase 21 U/L (0-32); Blood Urea Nitrogen 12 mg/dL (8-23); Calcium 8.6 mg/dL (8.5-10.5); Carbon Dioxide 27 mmol/L (22-29); Chloride 105 mmol/L (98-107); Globulin 2.6 g/dL (1.3-4.6); Glucose 95 mg/dL (65-115); Osmolality Calculated 294 mOsm/kg (285-295); Potassium 4.1 mmol/L (3.5-5.1); Sodium 142 mmol/L (136-145); Total Protein 6.6 g/dL (6.6-8.7)
[2025-08-24 17:29] LABS: Chromogranin A LC/MS/MS 112 ng/mL (ADULTS: <311)
[2025-08-25 16:10] LABS: Serotonin Whole Blood 21 ng/mL (56-244)
[2025-08-29 18:50] LABS: 5-HIAA, 24 Hour Urine 4.0 mg/24 h (< OR = 6.0)
== END 2025-09-09 23:59 | disposition home or self-care (01) ==
PROVIDERS: PCP Family Medicine; Visit Provider Nurse Practitioner Family
DX: Z08 Encounter for follow-up examination after completed treatment for malignant neoplasm (principal); Z85.118 Personal history of other malignant neoplasm of bronchus and lung; Z85.3 Personal history of malignant neoplasm of breast; K86.89 Other specified diseases of pancreas; K76.89 Other specified diseases of liver; Z92.21 Personal history of antineoplastic chemotherapy; Z92.3 Personal history of irradiation; Z79.810 Long term (current) use of selective estrogen receptor modulators (SERMs); Z79.899 Other long term (current) drug therapy; Z90.2 Acquired absence of lung [part of]
CPT/HCPCS: 36415; 80053; 83497; 84260; 85025; 86316; 99214